=== PATIENT | male | born 1940 | race Caucasian/White ===

== ENCOUNTER → 2017-02-16 | Outpatient (CLI) | payer MEDICARE ==
--- NOTE | 2017-02-17 05:47 | REP ---
RIGHT KNEE, FIVE VIEWS: HISTORY: Pain. There is on acute fracture or dislocation. There is narrowing of the joint spaces. Osteophytes are present on the patella. IMPRESSION: Degenerative change as described above. Signed by Justus Chi MD 02/17/2017 08:15 A
== END ==
LOC: M ADAMS 10:49
PROVIDERS: ATTEND Physician Assistant
DX: M25.561 Pain in right knee (principal)

== ENCOUNTER 2017-02-24 11:53 | Emergency (ER) | payer OTHER, MEDICARE ==
[2017-02-24] MEDS ORDERED: FLOM5CAP PO (12:11)
[2017-02-24] MEDS ORDERED: NITR0.4D6 TD (12:11)
[2017-02-24] MEDS ORDERED: PRIM250T5 PO (12:11)
[2017-02-24] MEDS ORDERED: ASPI81TA85 PO (12:11)
[2017-02-24] MEDS ORDERED: ALBU17IN2 INH (12:11)
[2017-02-24] MEDS ORDERED: BACT800T5 PO (12:11)
[2017-02-24] MEDS ORDERED: OMEP40CA2 PO (12:11)
[2017-02-24] MEDS ORDERED: ISOS20TA PO (12:11)
[2017-02-24] MEDS ORDERED: BUDE180INH INH (12:11)
[2017-02-24] MEDS ORDERED: ATOR1TAB18 PO (12:11)
[2017-02-24] MEDS ORDERED: ATEN25TA PO (12:11)
[2017-02-24] MEDS ORDERED: IPRATROPIUM 0.5MG/ALBUTEROL 2.5MG INH SOL UD 3ML (DUONEB)(J7620) NEB ONE (13:15)
[2017-02-24] MEDS ORDERED: AZITHROMYCIN 250 MG TAB PO ONE (13:15)
[2017-02-24] MEDS ORDERED: predniSONE 20 MG TAB PO ONE (13:15)
[2017-02-24] MEDS ORDERED: ZITHTAB PO (14:28)
[2017-02-24] MEDS ORDERED: PRED10TA PO (14:28)
[2017-02-24] MEDS ORDERED: ALBU83IN INH (14:28)
[2017-02-24 14:36] VITALS: BP 124/69
--- NOTE | 2017-02-24 14:45 | REP ---
CHEST, TWO VIEWS: Two views of the chest are performed and compared of a prior study of 05/31/2013. There are again calcified pleural plaques bilaterally. There is no acute infiltrate. There is mild bibasilar fibrotic change. The heart is normal in size and there is calcified tortuous aorta. The mediastinal silhouette is unchanged. There are mild degenerative changes of the spine. IMPRESSION: Chronic changes appear stable without evidence of acute infiltrate. Signed by Garcia Radford MD 02/25/2017 04:03 P
== END 2017-02-24 14:42 | disposition home or self-care (01) ==
LOC: M ED 12:37
DX: J45.901 Unspecified asthma with (acute) exacerbation (principal); J20.9 Acute bronchitis, unspecified

== ENCOUNTER 2017-07-02 09:39 | Emergency (ER) | payer OTHER, MEDICARE ==
[~2017-07-02] VITALS: Ht 170.2 cm; Wt 64.1 kg
[~2017-07-02 09:39] MED LIST: ALBU17IN2 INH; ALBU83IN INH; ASPI81TA85 PO; ATEN25TA PO; ATOR80TA59 PO; BACT800T5 PO; BUDE180INH INH; FLOM5CAP PO; ISOS20TA PO; NITR0.4D6 TD; OMEP40CA2 PO; PRED10TA2 PO; PRIM250T8 PO; ZITHTAB PO
[2017-07-02] MEDS ORDERED: PRED20TA PO ×2 (10:11→12:19)
[2017-07-02] MEDS ORDERED: DOXY100T (10:11)
[2017-07-02] MEDS ORDERED: BENZ200C53 (10:11)
[2017-07-02] MEDS ORDERED: NS 1,000 ML IV SCH (10:19)
[2017-07-02] MEDS: IPRATROPIUM 0.5MG/ALBUTEROL 2.5MG INH SOL UD 3ML (DUONEB)(J7620) NEB PRN ×2 (10:40→10:58)
[2017-07-02 10:58] LABS: ADD MANUAL DIFFER YES; MEAN CORPUSCULAR HGB CONC 33.9 g/dl (32.0-36.5); MEAN CORPUSCULAR VOLUME 88.5 fl (80.0-96.0); PLATELET COUNT, AUTOMATED 159 k/mm3 (150-450); RED CELL DISTRIBUTION WIDTH 12.8 % (11.5-14.5); WHITE BLOOD COUNT 9.7 K/mm3 (4.0-10.0)
--- NOTE | 2017-07-02 11:12 | REP ---
Clinical: Dyspnea and cough. Technique: PA and lateral. Comparison: 02/24/2017. Findings: Mediastinum and cardiac silhouette are stable with moderate hiatal hernia again identified. The lung escoto demonstrate chronic interstitial changes as well as blunting to the diaphragmatic surfaces and partially calcified pleural plaques. Subtle superimposed basilar atelectasis or small pleural effusion cannot be excluded. No pneumothorax. Skeletal structures are intact. Impression: 1. 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 2. No definite acute process although subtle atelectasis cannot be excluded. Signed by Prasanth Haddad MD 07/02/2017 11:05 A
[2017-07-02 11:24] LABS: ALBUMIN 3.6 GM/DL (3.2-5.2); ALBUMIN/GLOBULIN RATIO 1.16 (1.00-1.93); ALKALINE PHOSPHATASE 92 U/L (45-117); ALT/SGPT 27 U/L (12-78); ANION GAP 9 MEQ/L (8-16); AST/SGOT 15 U/L (15-37); BILIRUBIN,DIRECT 0.2 MG/DL (0.0-0.2); BILIRUBIN,TOTAL 0.5 MG/DL (0.2-1.0); BLOOD UREA NITROGEN 18 MG/DL (7-18); CALCIUM LEVEL 8.6 MG/DL (8.8-10.2); CARBON DIOXIDE LEVEL 31 MEQ/L (21-32); CHLORIDE LEVEL 100 MEQ/L (98-107); CREATININE FOR GFR 0.62 MG/DL (0.70-1.30); GLOMERULAR FILTRATION RATE > 60.0 (>42); GLUCOSE, FASTING 184 MG/DL (83-110); POTASSIUM SERUM 4.1 MEQ/L (3.5-5.1); SODIUM LEVEL 140 MEQ/L (136-145); TOTAL PROTEIN 6.7 GM/DL (6.4-8.2)
[2017-07-02 11:30] LABS: ANISOCYTOSIS 1+; BANDS 1 % (< 11)
[2017-07-02] MEDS ORDERED: DOXY100C37 PO (12:19)
[2017-07-02] MEDS ORDERED: MUCI600T37 PO (12:19)
[2017-07-02 12:29] VITALS: BP 129/65
--- NOTE | 2017-07-03 07:39 | ECGEPIP ---
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 Order Number: [id number] Reading MD: Arti Pak Measurements Intervals [place] Rate: 70 P: 62 IN: 134 QRS: 14 QRSD: 90 T: 42 QT: 387 QTc: 420 Interpretive Statements SINUS RHYTHM NSTTW ABNORMALITY SIMILAR 01/01/16 Electronically Signed On 07-03-2017 7:39:02 EDT by Arti Pak
== END 2017-07-02 12:39 | disposition home or self-care (01) ==
LOC: M ED 09:39
DX: J45.909 Unspecified asthma, uncomplicated (principal); J20.9 Acute bronchitis, unspecified; J06.9 Acute upper respiratory infection, unspecified; Z87.891 Personal history of nicotine dependence

== ENCOUNTER 2017-11-20 14:20 | Emergency (ER) | payer OTHER, MEDICARE ==
[2017-11-20] MEDS: NS 500 ML IV (14:45)
[2017-11-20 15:00] LABS: BASO % 0.4 % (0.0-1.0); HEMATOCRIT 45.1 % (42.0-52.0); HEMOGLOBIN 15.4 g/dl (14.0-18.0); IMMATURE GRANULOCYTE # 0.1 10^3/uL (0-0); IMMATURE GRANULOCYTE % 0.7 % (0-0); LYMPH # 0.4 10^3/uL (1.5-4.5); LYMPH % 5.2 % (24.0-44.0); MEAN CORPUSCULAR HEMOGLOBIN 29.1 pg (27.0-33.0); MEAN CORPUSCULAR HGB CONC 34.1 g/dl (32.0-36.5); MEAN CORPUSCULAR VOLUME 85.3 fl (80.0-96.0); MONO # 0.6 10^3/uL (0.0-0.8); MONO % 6.7 % (0.0-5.0); NEUTROPHILS # 7.2 10^3/uL (1.8-7.7); RED BLOOD COUNT 5.29 10^6/uL (4.30-6.10); RED CELL DISTRIBUTION WIDTH 12.8 % (11.5-14.5); WHITE BLOOD COUNT 8.3 10^3/uL (4.0-10.0)
[2017-11-20 15:22] LABS: ALBUMIN 3.6 GM/DL (3.2-5.2); ALBUMIN/GLOBULIN RATIO 1.06 (1.00-1.93); ALKALINE PHOSPHATASE 103 U/L (45-117); ALT/SGPT 20 U/L (12-78); ANION GAP 7 MEQ/L (8-16); AST/SGOT 24 U/L (7-37); BILIRUBIN,DIRECT 0.2 MG/DL (0.0-0.2); BILIRUBIN,TOTAL 0.5 MG/DL (0.2-1.0); BLOOD UREA NITROGEN 18 MG/DL (7-18); CALCIUM LEVEL 8.5 MG/DL (8.8-10.2); CARBON DIOXIDE LEVEL 26 MEQ/L (21-32); CHLORIDE LEVEL 100 MEQ/L (98-107); CREATININE FOR GFR 0.76 MG/DL (0.70-1.30); GLOMERULAR FILTRATION RATE > 60.0 (>42); GLUCOSE, FASTING 98 MG/DL (70-100); POTASSIUM SERUM 4.5 MEQ/L (3.5-5.1); SODIUM LEVEL 133 MEQ/L (136-145)
[2017-11-20 15:27] LABS: PLATELET COUNT, AUTOMATED 118 10^3/uL (150-450)
[2017-11-20 15:28] LABS: INFLUENZA A AMPLIFICATION NEGATIVE (NEGATIVE); INFLUENZA B AMPLIFICATION NEGATIVE (NEGATIVE)
[2017-11-20] MEDS: ACETAMINOPHEN TAB 650MG DOSE (2X325MG) PO (17:08)
[2017-11-20 17:54] LABS: KETONE, URINE AUTO RFX TRACE mg/dL (NEGATIVE); LEUKOCYTE ESTERASE UR AUTO RFX NEGATIVE (NEGATIVE); MUCUS, URINE RFX MODERATE (NEGATIVE); NITRITE, URINE AUTO RFX NEGATIVE (NEGATIVE); RBC, URINE AUTO RFX 4 /HPF (0-3); SPECIFIC GRAVITY UR AUTO RFX 1.025 (1.002-1.035); SQUAM EPITHELIAL CELL UR AURFX 0 /HPF (0-6); WBC, URINE AUTO RFX 3 /HPF (0-3)
[2017-11-20] MEDS: IBUPROFEN 600 MG TAB PO (18:10)
== END 2017-11-20 19:16 | disposition home or self-care (01) ==
LOC: M ED 14:20
DX: B34.9 Viral infection, unspecified (principal); I25.10 Atherosclerotic heart disease of native coronary artery without angina pectoris; E11.9 Type 2 diabetes mellitus without complications; I10 Essential (primary) hypertension; J44.9 Chronic obstructive pulmonary disease, unspecified; Z87.891 Personal history of nicotine dependence; Z95.1 Presence of aortocoronary bypass graft
CPT/HCPCS: 71045

== ENCOUNTER 2017-11-24 16:59 | Observation (INO) | payer MEDICARE, OTHER ==
[2017-11-24 18:12] LABS: BASO % 0.5 % (0.0-1.0); HEMATOCRIT 38.7 % (42.0-52.0); HEMOGLOBIN 13.6 g/dl (14.0-18.0); LYMPH % 4.2 % (24.0-44.0); MEAN CORPUSCULAR HEMOGLOBIN 28.9 pg (27.0-33.0); MEAN CORPUSCULAR HGB CONC 35.1 g/dl (32.0-36.5); MEAN CORPUSCULAR VOLUME 82.2 fl (80.0-96.0); MONO # 0.4 10^3/uL (0.0-0.8); MONO % 10.3 % (0.0-5.0); NEUTROPHILS # 3.4 10^3/uL (1.8-7.7); PLATELET COUNT, AUTOMATED 130 10^3/uL (150-450); RED BLOOD COUNT 4.71 10^6/uL (4.30-6.10); RED CELL DISTRIBUTION WIDTH 12.8 % (11.5-14.5); WHITE BLOOD COUNT 4.1 10^3/uL (4.0-10.0)
[2017-11-24 18:32] LABS: LACTIC ACID SEPSIS PROTOCOL 1.7 MMOL/L (0.4-2.0)
[2017-11-24 18:33] LABS: ALBUMIN 2.8 GM/DL (3.2-5.2); ALBUMIN/GLOBULIN RATIO 0.82 (1.00-1.93); ALKALINE PHOSPHATASE 84 U/L (45-117); ALT/SGPT 41 U/L (12-78); ANION GAP 10 MEQ/L (8-16); AST/SGOT 55 U/L (7-37); BILIRUBIN,DIRECT 0.2 MG/DL (0.0-0.2); BILIRUBIN,TOTAL 0.5 MG/DL (0.2-1.0); BLOOD UREA NITROGEN 15 MG/DL (7-18); CALCIUM LEVEL 7.9 MG/DL (8.8-10.2); CARBON DIOXIDE LEVEL 23 MEQ/L (21-32); CHLORIDE LEVEL 101 MEQ/L (98-107); CPK CREATINE PHOSPHOKINASE 37 U/L (39-308); CREATININE FOR GFR 0.57 MG/DL (0.70-1.30); GLOMERULAR FILTRATION RATE > 60.0 (>42); GLUCOSE, FASTING 143 MG/DL (70-100); POTASSIUM SERUM 3.8 MEQ/L (3.5-5.1); SODIUM LEVEL 134 MEQ/L (136-145); TOTAL PROTEIN 6.2 GM/DL (6.4-8.2); TROPONIN I < 0.02 NG/ML (< 0.10)
[2017-11-24 18:52] LABS: LYMPH # 0.2 10^3/uL (1.5-4.5); POSITIVE DIFF POS FLAG
[2017-11-24] MEDS ORDERED: ISOVUE-370 76% 100ML VIAL (Q9967) As Ordered ×2 (19:30)
[2017-11-24 19:47] LABS: MAGNESIUM LEVEL 1.7 MG/DL (1.8-2.4); NT-PRO BNP 560 PG/ML (<450); PHOSPHORUS LEVEL 3.1 MG/DL (2.5-4.9)
[2017-11-24] MEDS: IPRATROPIUM 0.5MG/ALBUTEROL 2.5MG INH SOL UD 3ML (DUONEB)(J7620) NEB ×2 (21:05)
[2017-11-24 21:07] LABS: ABG BASE EXCESS -4.5 (-2.0-2.0); ABG HCO3 18.5 MEQ/L (22.0-26.0); ABG O2 SATURATION 99.1 % (95.0-99.0); ABG PARTIAL PRESSURE CO2 28.7 mmHg (35.0-45.0); ABG PARTIAL PRESSURE O2 199.9 mmHg (75.0-100.0); ABG STANDARD HCO3 20.8 MEQ/L (22.0-26.0); ABG TOTAL CO2 19.4 MEQ/L (23.0-31.0); ABG pH (ARTERIAL) 7.428 UNITS (7.350-7.450)
[2017-11-24] MEDS: MAGNESIUM OXIDE 400 MG TAB (MAG-OX) PO ×2 (21:08)
[2017-11-24 21:40] LABS: KETONE, URINE AUTO RFX 2+ mg/dL (NEGATIVE); LEUKOCYTE ESTERASE UR AUTO RFX NEGATIVE (NEGATIVE); MUCUS, URINE RFX MODERATE (NEGATIVE); NITRITE, URINE AUTO RFX NEGATIVE (NEGATIVE); RBC, URINE AUTO RFX 5 /HPF (0-3); SQUAM EPITHELIAL CELL UR AURFX 0 /HPF (0-6); WBC, URINE AUTO RFX 5 /HPF (0-3)
[2017-11-24 21:47] LABS: SPECIFIC GRAVITY UR AUTO RFX >1.060 (1.002-1.035)
[2017-11-24] MEDS: SODIUM CHLORIDE 0.9% 1000 ML IV ×2 (23:45)
[2017-11-24] MEDS ORDERED: ONDANSETRON 4MG/2ML VIAL (J2405) IV ×2 (23:45)
[2017-11-25] MEDS: TAMSULOSIN 0.4 MG CAP PO ×4 (00:30→21:06)
[2017-11-25] MEDS: PRIMIDONE 50 MG TAB PO ×4 (00:31→22:06)
[2017-11-25] MEDS: TROSPIUM 20 MG TAB PO ×6 (00:32→22:05)
[2017-11-25] MEDS: OMEPRAZOLE 20 MG CAP PO ×6 (00:32→21:06)
[2017-11-25] MEDS: ACETAMINOPHEN TAB 650MG DOSE (2X325MG) PO ×2 (00:32)
[2017-11-25] MEDS: IPRATROPIUM 0.5MG/ALBUTEROL 2.5MG INH SOL UD 3ML (DUONEB)(J7620) NEB ×6 (03:15→15:02)
[2017-11-25 06:49] LABS: HEMOGLOBIN 12.9 g/dl (14.0-18.0); IMMATURE GRANULOCYTE % 0.9 % (0-0); LYMPH % 6.6 % (24.0-44.0); MEAN CORPUSCULAR HEMOGLOBIN 28.2 pg (27.0-33.0); MEAN CORPUSCULAR HGB CONC 33.9 g/dl (32.0-36.5); MEAN CORPUSCULAR VOLUME 83.2 fl (80.0-96.0); MONO # 0.1 10^3/uL (0.0-0.8); MONO % 4.4 % (0.0-5.0); NEUTROPHILS # 2.8 10^3/uL (1.8-7.7); NEUTROPHILS % 88.1 % (36.0-66.0); PLATELET COUNT, AUTOMATED 124 10^3/uL (150-450); RED BLOOD COUNT 4.57 10^6/uL (4.30-6.10); RED CELL DISTRIBUTION WIDTH 12.8 % (11.5-14.5); WHITE BLOOD COUNT 3.2 10^3/uL (4.0-10.0)
[2017-11-25 07:09] LABS: LYMPH # 0.2 10^3/uL (1.5-4.5); POSITIVE DIFF POS FLAG
[2017-11-25 07:15] LABS: ANION GAP 8 MEQ/L (8-16); BLOOD UREA NITROGEN 18 MG/DL (7-18); CARBON DIOXIDE LEVEL 25 MEQ/L (21-32); CHLORIDE LEVEL 104 MEQ/L (98-107); CREATININE FOR GFR 0.56 MG/DL (0.70-1.30); GLOMERULAR FILTRATION RATE > 60.0 (>42); GLUCOSE, FASTING 265 MG/DL (70-100); MAGNESIUM LEVEL 2.1 MG/DL (1.8-2.4); POTASSIUM SERUM 4.3 MEQ/L (3.5-5.1); SODIUM LEVEL 137 MEQ/L (136-145)
[2017-11-25] MEDS: ENOXAPARIN 40 MG/0.4 ML SYRINGE (J1650) SC ×2 (08:49)
[2017-11-25] MEDS: ATORVASTATIN 20 MG TAB PO ×2 (08:50)
[2017-11-25] MEDS: ASPIRIN 81 MG ENTERIC TAB PO ×2 (08:50)
[2017-11-25] MEDS: ATENOLOL 25 MG TAB PO ×2 (08:50)
[2017-11-25] MEDS: ISOSORBIDE MON. (IMDUR) 30 MG XR TAB PO ×2 (08:50)
[2017-11-25] MEDS: MONTELUKAST 10 MG TAB PO ×2 (08:50)
[2017-11-25] MEDS: SYMBICORT 160/4.5MCG INHALER 6GM INH ×4 (09:31→19:53)
[2017-11-26 07:27] LABS: BASO % 0.2 % (0.0-1.0); HEMATOCRIT 34.3 % (42.0-52.0); HEMOGLOBIN 11.9 g/dl (14.0-18.0); IMMATURE GRANULOCYTE # 0.1 10^3/uL (0-0); IMMATURE GRANULOCYTE % 1.1 % (0-0); LYMPH # 0.3 10^3/uL (1.5-4.5); LYMPH % 5.7 % (24.0-44.0); MEAN CORPUSCULAR HEMOGLOBIN 28.7 pg (27.0-33.0); MEAN CORPUSCULAR HGB CONC 34.7 g/dl (32.0-36.5); MEAN CORPUSCULAR VOLUME 82.9 fl (80.0-96.0); MONO # 0.6 10^3/uL (0.0-0.8); MONO % 9.8 % (0.0-5.0); NEUTROPHILS # 4.7 10^3/uL (1.8-7.7); NEUTROPHILS % 83.2 % (36.0-66.0); PLATELET COUNT, AUTOMATED 158 10^3/uL (150-450); RED BLOOD COUNT 4.14 10^6/uL (4.30-6.10); WHITE BLOOD COUNT 5.6 10^3/uL (4.0-10.0)
[2017-11-26] MEDS: IPRATROPIUM 0.5MG/ALBUTEROL 2.5MG INH SOL UD 3ML (DUONEB)(J7620) NEB ×4 (07:46→16:00)
[2017-11-26 08:06] LABS: ANION GAP 10 MEQ/L (8-16); BLOOD UREA NITROGEN 14 MG/DL (7-18); CALCIUM LEVEL 7.8 MG/DL (8.8-10.2); CARBON DIOXIDE LEVEL 26 MEQ/L (21-32); CHLORIDE LEVEL 103 MEQ/L (98-107); CREATININE FOR GFR 0.58 MG/DL (0.70-1.30); GLOMERULAR FILTRATION RATE > 60.0 (>42); GLUCOSE, FASTING 238 MG/DL (70-100); POTASSIUM SERUM 4.3 MEQ/L (3.5-5.1); SODIUM LEVEL 139 MEQ/L (136-145)
[2017-11-26] MEDS: ATORVASTATIN 20 MG TAB PO ×2 (09:26)
[2017-11-26] MEDS: ASPIRIN 81 MG ENTERIC TAB PO ×2 (09:26)
[2017-11-26] MEDS: MONTELUKAST 10 MG TAB PO ×2 (09:26)
[2017-11-26] MEDS: OMEPRAZOLE 20 MG CAP PO ×4 (09:26→20:27)
[2017-11-26] MEDS: ATENOLOL 25 MG TAB PO ×2 (09:27)
[2017-11-26] MEDS: TROSPIUM 20 MG TAB PO ×4 (09:27→20:27)
[2017-11-26] MEDS: ENOXAPARIN 40 MG/0.4 ML SYRINGE (J1650) SC ×2 (09:27)
[2017-11-26] MEDS: ISOSORBIDE MON. (IMDUR) 30 MG XR TAB PO ×2 (09:29)
[2017-11-26] MEDS: SYMBICORT 160/4.5MCG INHALER 6GM INH ×4 (14:16→19:39)
[2017-11-26] MEDS: LACTOBACILLUS ACIDOPHILUS CAP (BACID) PO ×2 (17:55)
[2017-11-26] MEDS: PRIMIDONE 50 MG TAB PO ×2 (20:27)
[2017-11-26] MEDS: TAMSULOSIN 0.4 MG CAP PO ×2 (20:27)
[2017-11-26] MEDS: CIPROFLOXACIN 500 MG TAB PO ×2 (20:49)
[2017-11-27] MEDS ORDERED: CIPROFLOXACIN 500 MG TAB PO ×2 (06:00)
[2017-11-27 06:22] LABS: BASO % 0.2 % (0.0-1.0); EOS % 0.6 % (0.0-3.0); HEMATOCRIT 34.8 % (42.0-52.0); IMMATURE GRANULOCYTE % 0.9 % (0-3.0); LYMPH # 0.6 10^3/uL (1.5-4.5); LYMPH % 11.8 % (24.0-44.0); MEAN CORPUSCULAR HEMOGLOBIN 28.5 pg (27.0-33.0); MEAN CORPUSCULAR HGB CONC 34.5 g/dl (32.0-36.5); MEAN CORPUSCULAR VOLUME 82.7 fl (80.0-96.0); MONO # 0.4 10^3/uL (0.0-0.8); MONO % 9.5 % (0.0-5.0); NEUTROPHILS # 3.6 10^3/uL (1.8-7.7); PLATELET COUNT, AUTOMATED 165 10^3/uL (150-450); RED BLOOD COUNT 4.21 10^6/uL (4.30-6.10); RED CELL DISTRIBUTION WIDTH 13.1 % (11.5-14.5); WHITE BLOOD COUNT 4.7 10^3/uL (4.0-10.0)
[2017-11-27 06:38] LABS: ANION GAP 8 MEQ/L (8-16); BLOOD UREA NITROGEN 8 MG/DL (7-18); CALCIUM LEVEL 7.9 MG/DL (8.8-10.2); CARBON DIOXIDE LEVEL 28 MEQ/L (21-32); CHLORIDE LEVEL 105 MEQ/L (98-107); CREATININE FOR GFR 0.47 MG/DL (0.70-1.30); GLOMERULAR FILTRATION RATE > 60.0 (>42); GLUCOSE, FASTING 141 MG/DL (70-100); POTASSIUM SERUM 3.9 MEQ/L (3.5-5.1); SODIUM LEVEL 141 MEQ/L (136-145)
[2017-11-27] MEDS: IPRATROPIUM 0.5MG/ALBUTEROL 2.5MG INH SOL UD 3ML (DUONEB)(J7620) NEB ×4 (08:00)
[2017-11-27] MEDS: SYMBICORT 160/4.5MCG INHALER 6GM INH ×2 (08:12)
[2017-11-27] MEDS: ASPIRIN 81 MG ENTERIC TAB PO ×2 (08:39)
[2017-11-27] MEDS: ATENOLOL 25 MG TAB PO ×2 (08:39)
[2017-11-27] MEDS: MONTELUKAST 10 MG TAB PO ×2 (08:39)
[2017-11-27] MEDS: OMEPRAZOLE 20 MG CAP PO ×2 (08:39)
[2017-11-27] MEDS: ATORVASTATIN 20 MG TAB PO ×2 (08:39)
[2017-11-27] MEDS: LACTOBACILLUS ACIDOPHILUS CAP (BACID) PO ×2 (08:39)
[2017-11-27] MEDS: TROSPIUM 20 MG TAB PO ×2 (08:39)
[2017-11-27] MEDS: ISOSORBIDE MON. (IMDUR) 30 MG XR TAB PO ×2 (08:39)
[2017-11-27] MEDS: ENOXAPARIN 40 MG/0.4 ML SYRINGE (J1650) SC ×2 (08:40)
[2017-11-27] MEDS: CIPROFLOXACIN 500 MG TAB PO ×2 (10:27)
== END 2017-11-27 10:40 | disposition home or self-care (01) ==
LOC: M ED INP 23:45 → M MSPAV 11-26 13:50 → M ED 16:59
DX: J44.1 Chronic obstructive pulmonary disease with (acute) exacerbation (principal); A02.9 Salmonella infection, unspecified; R19.7 Diarrhea, unspecified; E86.0 Dehydration; I11.9 Hypertensive heart disease without heart failure; I25.10 Atherosclerotic heart disease of native coronary artery without angina pectoris; E11.9 Type 2 diabetes mellitus without complications; E78.5 Hyperlipidemia, unspecified; K21.9 Gastro-esophageal reflux disease without esophagitis; N40.0 Benign prostatic hyperplasia without lower urinary tract symptoms; N48.6 Induration penis plastica; G25.0 Essential tremor; R06.02 Shortness of breath; J61 Pneumoconiosis due to asbestos and other mineral fibers; R23.0 Cyanosis; R50.9 Fever, unspecified; E83.42 Hypomagnesemia; R53.1 Weakness; M06.9 Rheumatoid arthritis, unspecified; J45.909 Unspecified asthma, uncomplicated; Z85.46 Personal history of malignant neoplasm of prostate; Z85.828 Personal history of other malignant neoplasm of skin; Z95.5 Presence of coronary angioplasty implant and graft; Z88.0 Allergy status to penicillin; Z88.5 Allergy status to narcotic agent; Z79.899 Other long term (current) drug therapy; Z79.82 Long term (current) use of aspirin; Z79.84 Long term (current) use of oral hypoglycemic drugs; Z79.51 Long term (current) use of inhaled steroids; Z87.891 Personal history of nicotine dependence
CPT/HCPCS: Q9967

== ENCOUNTER 2018-04-09 10:52 | Emergency (ER) | payer MEDICARE ==
[2018-04-09 12:22] LABS: HEMATOCRIT 39.2 % (42.0-52.0); MEAN CORPUSCULAR HEMOGLOBIN 28.1 pg (27.0-33.0); MEAN CORPUSCULAR HGB CONC 33.2 g/dl (32.0-36.5); MEAN CORPUSCULAR VOLUME 84.8 fl (80.0-96.0); PLATELET COUNT, AUTOMATED 125 10^3/uL (150-450); RED BLOOD COUNT 4.62 10^6/uL (4.30-6.10); RED CELL DISTRIBUTION WIDTH 13.7 % (11.5-14.5)
[2018-04-09 12:43] LABS: ERYTHROCYTE SEDIMENTATION RATE 19 mm/hr (0-20)
[2018-04-09 12:44] LABS: ANION GAP 6 MEQ/L (8-16); BLOOD UREA NITROGEN 14 MG/DL (7-18); C REACTIVE PROTEIN QUANTITATIV 1.59 MG/DL (0.00-0.30); CALCIUM LEVEL 8.3 MG/DL (8.8-10.2); CARBON DIOXIDE LEVEL 29 MEQ/L (21-32); CHLORIDE LEVEL 105 MEQ/L (98-107); CREATININE FOR GFR 0.49 MG/DL (0.70-1.30); GLOMERULAR FILTRATION RATE > 60.0 (>42); GLUCOSE, FASTING 140 MG/DL (70-100); POTASSIUM SERUM 4.4 MEQ/L (3.5-5.1); SODIUM LEVEL 140 MEQ/L (136-145)
[2018-04-09] MEDS: NS 1,000 ML IV (13:10)
[2018-04-09] MEDS: cefTRIAXone SOD 1 GM in D5W MINI-BAG PLUS 50 ML IV (13:42)
== END 2018-04-09 14:25 | disposition home or self-care (01) ==
LOC: M ED 10:52
DX: L03.012 Cellulitis of left finger (principal); R73.09 Other abnormal glucose; I10 Essential (primary) hypertension; J45.909 Unspecified asthma, uncomplicated; J44.9 Chronic obstructive pulmonary disease, unspecified; K21.9 Gastro-esophageal reflux disease without esophagitis; Z87.442 Personal history of urinary calculi; Z85.01 Personal history of malignant neoplasm of esophagus; Z85.46 Personal history of malignant neoplasm of prostate; Z85.828 Personal history of other malignant neoplasm of skin; Z95.5 Presence of coronary angioplasty implant and graft; Z98.61 Coronary angioplasty status; Z79.82 Long term (current) use of aspirin; Z79.899 Other long term (current) drug therapy; Z88.5 Allergy status to narcotic agent; Z88.0 Allergy status to penicillin
CPT/HCPCS: J0696

== ENCOUNTER → 2019-07-21 | Outpatient (CLI) | payer MEDICARE ==
[~2019-07-21] MED LIST changes: +ASPI81TAEC PO; +BACI500O8 TOP; +BENZ200C70; +CIPR-249 PO; +CLEO300C2 PO; +DOXY100C37 PO; +DOXY100T; +FLOM0.4C39 PO; -FLOM5CAP PO; +ISOS30TA4 PO; +KEFL500C17 PO; +METF500T13 PO; +MUCI600T37 PO; +NITR4TASL SL; +OMEP20CA4 PO; +OXYC1TAB23 PO; +PRED20TA PO; +PRIM50TA6 PO; +RISATAB3 PO; +SING10TA32 PO; +SYMB16INH INH; +TROS20TA3 PO
--- NOTE | 2019-07-21 19:51 | REP ---
Whole body radionuclide PET CT scan: The patient has a history of esophagectomy and gastric pull-through. A report of an outside CT scan from [facility] described a soft tissue nodule associated with a pleural plaque in the right lung lower lobe measuring 2.8 x 0.8 cm that had increased in size from a prior CT study dated 02/16/2019 where it measured 2.4 x 0.5 cm. Whole body PET CT scan is performed from skull base to the upper thighs. Neck and supraclavicular areas: There are no hypermetabolic foci. There is artifactual uptake in a sublingual salivary gland. Chest: There is borderline hypermetabolic uptake in the soft tissue nodule adjacent to the calcific pleural plaque along the posterolateral aspect of the right seventh rib in the superior segment of the right lower lobe. The standard uptake value of the soft tissue nodule is 2.6. This is borderline hypermetabolic. There are three foci of borderline hypermetabolic uptake interposed between the gastric pull-through and the thoracic vertebra: one at the T5 level with a standard uptake value of 2.8, the next at the approximate T6 level with a standard uptake value of 3.1, and, and the third at the approximate T8 level with a standard uptake value of 3.3. These may be foci of artifactual uptake related to the pull-through procedure. Abdomen, pelvis and upper thighs: There are no hypermetabolic foci. There is artifactual labeling from radiotracer containing urine at the tip of the penis. There is artifactual, nonspecific radio labeling of the bowel. Impression: The known pleural-based nodule adjacent to a calcific pleural plaque posterolaterally in the right hemithorax demonstrates borderline hypermetabolic uptake with a standard uptake value of 2.6. There are three borderline hypermetabolic foci interposed between the gastric pull-through and a thoracic vertebra as discussed in detail above. These do these may be artifactual related to the pull-through procedure. There are no other hypermetabolic foci. The study is performed with 8.5 mCi of F 18 FDG. Electronically Signed by Garcia Aquino MD 07/21/2019 07:43 P
== END ==
LOC: M PLARAD 13:21
PROVIDERS: ATTEND Internal Medicine Pulmonary Disease
DX: Z12.2 Encounter for screening for malignant neoplasm of respiratory organs (principal); R91.8 Other nonspecific abnormal finding of lung field
CPT/HCPCS: 78815; A9552

== ENCOUNTER 2020-11-20 11:30 | Emergency (ER) | payer MEDICARE, OTHER ==
[~2020-11-20] VITALS: Ht 171.4 cm; Wt 60.9 kg
[~2020-11-20 11:30] MED LIST changes: -ASPI81TA85 PO; +ASPI81TA86 PO; +OMEP1CAP73 PO; -OMEP20CA4 PO; -OMEP40CA2 PO; +OMEP40CA97 PO
--- OUTSIDE RECORDS SUMMARY | 2020-11-20 11:35 | CCD ---
Author Author [facility] Organization [facility] Address Unknown Phone Unavailable Care Team Providers Care Lead Bi Developer Name Role Phone RING, K ANDREWS PA Unavailable Unavailable RING, K ANDREWS PA Unavailable Unavailable RING, K ANDREWS PA Unavailable Unavailable RING, K ANDREWS PA Unavailable Unavailable RING, K ANDREWS PA Unavailable Unavailable RING, K ANDREWS PA Unavailable Unavailable RING, K ANDREWS PA Unavailable Unavailable RING, K ANDREWS PA Unavailable Unavailable RING, K ANDREWS PA Unavailable Unavailable RING, K ANDREWS PA Unavailable Unavailable RING, K ANDREWS PA Unavailable Unavailable RING, K ANDREWS PA Unavailable Unavailable RING, K ANDREWS PA Unavailable Unavailable RING, K ANDREWS PA Unavailable Unavailable RING, K ANDREWS PA Unavailable Unavailable RING, K ANDREWS PA Unavailable Unavailable RING, K ANDREWS PA Unavailable Unavailable RING, K ANDREWS PA Unavailable Unavailable RING, K ANDREWS PA Unavailable Unavailable RING, K ANDREWS PA Unavailable Unavailable RING, K ANDREWS PA Unavailable Unavailable Spearance, J Suresh PA Unavailable Unavailable Spearance, J Suresh PA Unavailable Unavailable Spearance, J Suresh PA Unavailable Unavailable Spearance, J Suresh PA Unavailable Unavailable Spearance, J Suresh PA Unavailable Unavailable Spearance, J Suresh PA Unavailable Unavailable Spearance, J Suresh PA Unavailable Unavailable Spearance, J Suresh PA Unavailable Unavailable Spearance, J Suresh PA Unavailable Unavailable Spearance, J Suresh PA Unavailable Unavailable Spearance, J Suresh PA Unavailable Unavailable Spearance, J Suresh PA Unavailable Unavailable Spearance, J Suresh PA Unavailable Unavailable Spearance, J Suresh PA Unavailable Unavailable Spearance, J Suresh PA Unavailable Unavailable Spearance, J Suresh PA Unavailable Unavailable Spearance, J Suresh PA Unavailable Unavailable Spearance, J Suresh PA Unavailable Unavailable Spearance, J Suresh PA Unavailable Unavailable Bruce Pitts Unavailable Unavailable Re-disclosure Warning The records that you are about to access may contain information from federally-assisted alcohol or drug abuse programs. If such information is present, then the following federally mandated warning applies: This information has been disclosed to you from records protected by federal confidentiality rules (42 CFR part 2). The federal rules prohibit you from making any further disclosure of this information unless further disclosure is expressly permitted by the written consent of the person to whom it pertains or as otherwise permitted by 42 CFR part 2. A general authorization for the release of medical or other information is NOT sufficient for this purpose. The Federal rules restrict any use of the information to criminally investigate or prosecute any alcohol or drug abuse patient.The records that you are about to access may contain highly sensitive health information, the redisclosure of which is protected by Article 27-F of the [facility] Public Health law. If you continue you may have access to information: Regarding HIV / AIDS; Provided by facilities licensed or operated by the [facility] Office of Mental Health; or Provided by the [facility] Office for People With Developmental Disabilities. If such information is present, then the following [facility] mandated warning applies: This information has been disclosed to you from confidential records which are protected by state law. State law prohibits you from making any further disclosure of this information without the specific written consent of the person to whom it pertains, or as otherwise permitted by law. Any unauthorized further disclosure in violation of state law may result in a fine or long term sentence or both. A general authorization for the release of medical or other information is NOT sufficient authorization for further disc losure. Family History Family Member Name Family Member Gender Family Member Status Date o f Status Description Data Source(s) Unknown Unknown Problem [facility] ([facility]) Encounters Encounter Providers Location Date Indications Data Source(s ) Outpatient Attender: ANDREWS Neumann Primary 07/27/2020 09:30:00 AM EDT [facility] ([facility]) Outpatient Attender: Suresh crystal 10/08/2019 08:15:00 AM EST [facility] ([facility]) Immunizations Vaccine Date Status Description Data Source(s) INFLUENZA VIRUS VACCINE QUADRIVALENT 2019-21 (6 MOS AN D UP) 06/21/2020 12:00:00 AM EDT completed [facility] Medications Medication Brand Name Start Date Product Form Dose Route Admi nistrative Instructions Pharmacy Instructions Status Indications Reaction Description Data Source(s) 875 mg 07/27/2020 12:00:00 AM EDT tablet 20 TAKE ONE TABLET BY MOUTH EVERY 12 HOURS FOR 10 DAYS TAKE ONE TABLET BY MOUTH EVERY 12 HOURS FOR 10 DAYS SO LD: 07/27/2020 [facility] 137 mcg (0.1 %) 07/27/2020 12:00:00 AM EDT aerosol,spray 30 SPRAY TWO SPRAYS IN EACH NOSTRIL EVERY 12 HOURS SPRAY TWO SPRAYS IN EACH NOSTRIL EVERY 12 HOURS SOLD: 07/28/2020 [facility] Azelastine HCL (Nasal) Azelastine HCL (Nasal) 07/27/2020 12:00:00 AM E DT active [facility] ([facility], [facility]) Amoxicillin 875 MG Oral Tablet Amoxicillin 07/27/2020 12:00:00 AM EDT ORAL active [facility] ([facility], [facility]) 875-125 mg 10/08/2019 12:00:00 AM EST tablet 20 TAKE ONE TABLET BY MOUTH TWICE A DAY FOR 10 DAYS TAKE ONE TABLET BY MOUTH TWICE A DAY FOR 10 DAYS SOLD: 10/08/2019 [facility] Prednisone 20 MG Oral Tablet Prednisone 10/08/2019 12:00:00 AM EST ORAL active [facility] ([facility], [facility]) 20 mg 10/08/2019 12:00:00 AM EST tablet 12 TAKE ONE TABLET BY MOUTH THREE TIMES A DAY FOR 4 DAYS TAKE ONE TABLET BY MOUTH THREE TIMES A DAY FOR 4 DAYS SOLD: 10/08/2019 [facility] Amoxicillin 875 MG / Clavulanate 125 MG Oral Tablet [Augment in] Augmentin 10/08/2019 12:00:00 AM EST ORAL active [facility] ([facility], [facility]) Insurance Providers Payer name Policy type / Coverage type Policy ID Covered constitution party ID Covered constitution party's relationship to wilhelm Policy Wilhelm Plan Information AETNA MEDICARE [id number] SP [id number] [facility] [id number] SP [id number] 'S ADMINISTRATION [id number] SP [id number] AETNA MEDICARE [id number] SP MEBNZ [id number] Aetna Ppo/Pos/Nap/MC Commercial [id number] Self [id number] Aetna Ppo/Pos/Nap/MC Commercial [id number] Self [id number] Aetna Ppo/Pos/Nap/MC Commercial [id number] Self [id number] Aetna Ppo/Pos/Nap/MC Commercial [id number] Self [id number] AETNA MEDICARE O [id number] S MEBNZ 1YJ AETNA MEDICARE -O/P [id number] Aetna Ppo/Pos/Nap/MC Commercial [id number] Self [id number] Aetna Ppo/Pos/Nap/MC Commercial [id number] Self [id number] Aetna Ppo/Pos/Nap/MC Commercial [id number] Self [id number] AETNA MEDICARE [id number] SP MEBNZ 1YJ MEDICARE COMPLETE [id number] SP [id number] [facility]/136E O [id number] S [id number] United HLCR/Medicare Solu Commercial [id number] Self [id number] United HLCR/Medicare Solu Commercial [id number] Self [id number] United HLCR/Medicare Solu Commercial Self [facility] [id number] SP [id number] [facility] P [id number] S [id number] MEDICARE COMPLETE [id number] SP [id number] [facility] P [id number] S [id number] Social History Code Duration Value Status Description Data Source(s ) Smoking 07/27/2020 12:00:00 AM EDT Patient is a former smoker completed Patient is a former smoker [facility]) Vital Signs ID Date Data Source UNK Name Value Range Interpretation Code Description Data Source(s) Body mass index (BMI) [Ratio] 21.9 kg/m2 21.9 k g/m2 [facility] ([facility]) Body height 66 [in_i] 66 [in_i] [facility], [facility]) 5'6" Body weight 136.00 [lb_av] 136.00 [lb_av] MED[facility] T ([facility], [facility]) Body temperature 97.7 [degF] 97.7 [degF] [facility], [facility]) Oxygen saturation in Arterial blood by Pulse oximetry 98 % 98 % [facility] ([facility], [facility]) [facility]piratory rate 18 /min 18 /min [facility] ( [facility]) Heart rate 80 /min 80 /min [facility] ([facility], [facility]) Diastolic blood pressure 76 mm[Hg] 76 mm[Hg] [facility] ([facility], [facility]) Systolic blood pressure 136 mm[Hg] 136 mm[Hg] [facility] ([facility], [facility]) Body mass index (BMI) [Ratio] 21.9 kg/m2 21.9 k g/m2 [facility] ([facility], [facility]) Body height 66 [in_i] 66 [in_i] [facility] ([facility], [facility]) 5'6" Body weight 136.00 [lb_av] 136.00 [lb_av] MED[facility] T ([facility], [facility]) Body temperature 98.4 [degF] 98.4 [degF] [facility] ([facility], [facility]) Oxygen saturation in Arterial blood by Pulse oximetry 94 % 94 % [facility] ([facility], [facility]) Respiratory rate 16 /min 16 /min [facility] ( [facility], [facility]) Heart rate 71 /min 71 /min [facility] ([facility], [facility]) Diastolic blood pressure 78 mm[Hg] 78 mm[Hg] [facility] ([facility], [facility]) Systolic blood pressure 146 mm[Hg] 146 mm[Hg] M [facility] ([facility], [facility])
--- OUTSIDE RECORDS SUMMARY | 2020-11-20 13:01 | CCD ---
Author Author [facility] Organization [facility] Address Unknown Phone Unavailable Care Team Providers Care Software Quality Test Engineer Name Role Phone RING, K ANDREWS PA [...] is protected by Article 27-F of the [facility] Public Health law. If you continue you may have access to information: Regarding HIV / AIDS; Provided by facilities licensed or operated by the [facility] Office of Mental Health; or Provided by the [facility] Office for People With Developmental Disabilities. If such information is present, then the following [facility] mandated warning applies: This information [...] law may result in a fine or prison sentence or both. A general authorization for [...] Neumann Primary 07/27/2020 09:30:00 AM EDT [facility] ([facility]) Outpatient Attender: Suresh crystal 10/08/2019 08:15:00 AM EST [facility] ([facility]) Immunizations Vaccine Date [...] 07/27/2020 12:00:00 AM E DT active [facility] ([facility], [facility]) Amoxicillin 875 MG Oral Tablet Amoxicillin 07/27/2020 12:00:00 AM EDT ORAL active [facility] ([facility], [facility]) 875-125 mg 10/08/2019 12:00:00 AM EST tablet 20 TAKE ONE TABLET BY MOUTH TWICE A DAY FOR 10 DAYS TAKE ONE TABLET BY MOUTH TWICE A DAY FOR 10 DAYS SOLD: 10/08/2019 [facility] Prednisone 20 MG Oral Tablet Prednisone 10/08/2019 12:00:00 AM EST ORAL active [facility] ([facility], [facility]) 20 mg 10/08/2019 12:00:00 AM EST tablet 12 TAKE ONE TABLET BY MOUTH THREE TIMES A DAY FOR 4 DAYS TAKE ONE TABLET BY MOUTH THREE TIMES A DAY FOR 4 DAYS SOLD: 10/08/2019 [facility] Amoxicillin 875 MG / Clavulanate 125 MG Oral Tablet [Augment in] Augmentin 10/08/2019 12:00:00 AM EST ORAL active [facility] ([facility], [facility]) Insurance Providers Payer name Policy type / Coverage type Policy ID Covered constitution party ID Covered constitution party's relationship to wilhelm Policy Wilhelm Plan Information AETNA MEDICARE [id number] SP MEBNZ [id number] 'S ADMINISTRATION [id number] SP [id number] [facility] [id number] SP [id number] AETNA MEDICARE [id number] SP MEBNZ [id number] Aetna Ppo/Pos/Nap/MC Commercial [id number] Self [id number] Aetna Ppo/Pos/Nap/MC Commercial [id number] Self [id number] Aetna Ppo/Pos/Nap/MC Commercial [id number] Self [id number] Aetna Ppo/Pos/Nap/MC Commercial [id number] Self [id number] AETNA MEDICARE O [id number] S MEBNZ 1YJ AETNA MEDICARE -O/P [id number] Aetna Ppo/Pos/Nap/MC Commercial [id number] Self [id number] Aetna Ppo/Pos/Nap/MC Commercial [id number] Self [id number] Aetna Ppo/Pos/Nap/MC Commercial [id number] Self [id number] AETNA MEDICARE [id number] SP MEBNZ 1YJ MEDICARE COMPLETE [id number] SP [id number] [facility]/136E O [id number] S [id number] United HLCR/Medicare Solu Commercial [id number] Self [id number] United HLCR/Medicare Solu Commercial [id number] Self [id number] United HLCR/Medicare Solu Commercial Self [facility] [id number] SP [id number] MEDICARE COMPLETE-[facility] P [id number] S [id number] MEDICARE COMPLETE [id number] SP [id number] [facility] [id number] S [id number] Social History Code Duration Value Status Description Data Source(s ) Smoking 07/27/2020 12:00:00 AM EDT Patient is a former smoker completed Patient is a former smoker [facility]) Vital Signs ID Date Data Source UNK Name Value Range Interpretation Code Description Data Source(s) Body mass index (BMI) [Ratio] 21.9 kg/m2 21.9 k g/m2 [facility] ([facility]) Body height 66 [in_i] 66 [in_i] [facility], [facility]) 5'6" Body weight 136.00 [lb_av] 136.00 [lb_av] [facility] T ([facility], [facility]) Body temperature 97.7 [degF] 97.7 [degF] [facility] ([facility], [facility]) Oxygen saturation in Arterial blood by Pulse oximetry 98 % 98 % [facility] ([facility], [facility]) Respiratory rate 18 /min 18 /min [facility] ( [facility], [facility]) Heart rate 80 /min 80 /min [facility] ([facility], [facility]) Diastolic blood pressure 76 mm[Hg] 76 mm[Hg] [facility] ([facility], [facility]) Systolic blood pressure 136 mm[Hg] 136 mm[Hg] [facility] ([facility], [facility]) Body mass index (BMI) [Ratio] 21.9 kg/m2 21.9 k g/m2 [facility] ([facility], [facility]) Body height 66 [in_i] 66 [in_i] [facility] ([facility], [facility]) 5'6" Body weight 136.00 [lb_av] 136.00 [lb_av] MED[facility] T ([facility], [facility]) Body temperature 98.4 [degF] 98.4 [degF] [facility] ([facility], [facility]) Oxygen saturation in Arterial blood by Pulse oximetry 94 % 94 % [facility] ([facility], [facility]) Respiratory rate 16 /min 16 /min [facility] ( [facility], [facility]) Heart rate 71 /min 71 /min [facility] ([facility], [facility]) Diastolic blood pressure 78 mm[Hg] 78 mm[Hg] [facility] ([facility], [facility]) Systolic blood pressure 146 mm[Hg] 146 mm[Hg] M [facility] ([facility], [facility])
--- NOTE | 2020-11-20 13:19 | REP ---
INDICATION: Abdominal Pain. COMPARISON: Comparison chest x-ray November 24, 2017. TECHNIQUE: Two views.. 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 This is unchanged. Lungs are otherwise well inflated and free of infiltrate. Pleural angles are sharp. The heart is borderline in size unchanged. Pulmonary vasculature is not increased. There are degenerative changes in the thoracic spine. There is chronic insert creased density behind the heart on the right side in this patient status post esophagectomy and colonic interposition. IMPRESSION: No active disease.. <Electronically signed by Richard Leal > 11/20/20 [id number]
[2020-11-20 13:27] LABS: BASO % 0.3 % (0.0-1.0); EOS # 0.1 10^3/uL (0.0-0.5); EOS % 1.1 % (0.0-3.0); HEMATOCRIT 44.4 % (42.0-52.0); HEMOGLOBIN 14.2 g/dl (13.5-17.5); LYMPH # 0.5 10^3/uL (1.5-5.0); LYMPH % 4.4 % (24.0-44.0); MEAN CORPUSCULAR HEMOGLOBIN 28.2 pg (27.0-33.0); MEAN CORPUSCULAR VOLUME 88.1 fl (80.0-96.0); MONO # 0.6 10^3/uL (0.0-0.8); MONO % 5.3 % (0.0-5.0); NEUTROPHILS # 9.2 10^3/uL (1.5-8.5); NEUTROPHILS % 88.1 % (36.0-66.0); PLATELET COUNT, AUTOMATED 121 10^3/uL (150-450); RED BLOOD COUNT 5.04 10^6/uL (4.30-6.10); WHITE BLOOD COUNT 10.5 10^3/uL (4.0-10.0)
[2020-11-20 13:49] LABS: ALBUMIN 4.1 GM/DL (3.2-5.2); ALT/SGPT 26 U/L (12-78); BILIRUBIN,DIRECT 0.2 MG/DL (0.0-0.2); BILIRUBIN,TOTAL 0.6 MG/DL (0.2-1.0); CK-MB VALUE MASS < 1.0 NG/ML (<3.6); CPK CREATINE PHOSPHOKINASE 59 U/L (39-308); LIPASE 70 U/L (73-393); MB/CK RELATIVE INDEX 1.69 (< OR =4); TROPONIN I < 0.02 NG/ML (< 0.10)
[2020-11-20] MEDS ORDERED: ACETAMINOPHEN 325 MG TAB PO ONE (14:30)
--- NOTE | 2020-11-20 15:17 | REP ---
INDICATION: pain elev enzymes. COMPARISON: Comparison CT study November 20, 2020.. TECHNIQUE: Right upper quadrant sonography. FINDINGS: Scanning through the right upper quadrant of the abdomen demonstrates a normal sized, thin-walled gallbladder without evidence of polyp. There are mobile shadowing gallstones within it as seen on CT.. Common bile duct is normal measuring 0.4 cm in greatest diameter. No focal liver lesion is seen. Liver size is normal. No pancreatic abnormality is observed. No right renal abnormality is seen. There is no evidence of ascites. The right kidney measures 11.2 x 5.0 x 5.1 cm. IMPRESSION: Cholelithiasis. Otherwise negative right upper quadrant sonogram.. <Electronically signed by Richard Leal > 11/20/20 [id number]
--- NOTE | 2020-11-20 15:30 | REP ---
INDICATION: left flank pain, concern stone patient gives a history of esophagectomy and colonic interposition. Prostate carcinoma. COMPARISON: Comparison CT study abdomen and pelvis June 28, 2013.. TECHNIQUE: Helical scanning is acquired in 4 mm axial images were reformatted. Coronal and sagittal MPR images were generated and reviewed. FINDINGS: Digital preliminary surgical appliances salesperson radiograph demonstrates a moderate amount of stool in the right colon and transverse colon region. There are clips in the right upper quadrant. There is bibasilar interstitial fibrosis in the lung bases. There is ingested material in the interposed colon at the diaphragmatic hiatus and distal chest. Surgical sutures are seen in the upper abdomen. Opaque gallstones are seen layering in the dependent portion the gallbladder. No focal hepatic lesion is seen. No splenic lesion is observed. No abnormality is observed in the pancreas. There is mild fullness in the lower pole collecting system and renal pelvis on the left but no ureteral calculus or lesion is seen. Question vessel crossing affect. There is a small focal vascular calcification at the lower pole. In addition, there is a tiny intrarenal calculus in the lower pole collecting system region of the left kidney. There is a peripheral cyst at the lower pole of the left kidney which measures 4.8 cm in greatest diameter. This is unchanged. No bladder or distal ureteral calculus is seen. There are some dystrophic calcifications in the prostate. Small and large bowel loops are unremarkable. There is a large amount of fecal material in the proximal colon. IMPRESSION: Cholelithiasis. There is a tiny intrarenal calculus in the lower pole the left kidney. There is minimal fullness of the intrarenal collecting system on the left but no ureteral calculus is observed. There is vascular calcification in the lower pole of the left kidney. Extensive postoperative changes are noted in the upper abdomen. Heavy vascular calcification.. <Electronically signed by Richard Leal > 11/20/20 [id number]
[2020-11-20] MEDS ORDERED: NS 1,000 ML IV ONE (16:00)
[2020-11-20 18:07] VITALS: O2SAT 96
[2020-11-20 19:45] VITALS: BP 145/69
--- NOTE | 2020-11-20 20:47 | ECGEPIP ---
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
== END 2020-11-20 20:02 | disposition home or self-care (01) ==
LOC: M ED 11:30
DX: K80.20 Calculus of gallbladder without cholecystitis without obstruction (principal); I10 Essential (primary) hypertension; E11.9 Type 2 diabetes mellitus without complications; Z79.899 Other long term (current) drug therapy; Z79.82 Long term (current) use of aspirin; Z88.0 Allergy status to penicillin; Z88.5 Allergy status to narcotic agent

== ENCOUNTER 2021-02-09 09:25 | Emergency (ER) | payer MEDICARE ==
[~2021-02-09] VITALS: Ht 167.6 cm; Wt 60.8 kg
[~2021-02-09 09:25] MED LIST changes: +ASPI-569 PO; -ASPI81TAEC PO; +ISOS1TAB35 PO; -ISOS30TA4 PO
[2021-02-09 10:51] LABS: BASO % 0.5 % (0.0-1.0); EOS # 0.1 10^3/uL (0.0-0.5); EOS % 3.4 % (0.0-3.0); HEMATOCRIT 39.4 % (42.0-52.0); HEMOGLOBIN 12.9 g/dl (13.5-17.5); LYMPH # 0.6 10^3/uL (1.5-5.0); LYMPH % 14.7 % (24.0-44.0); MEAN CORPUSCULAR HEMOGLOBIN 29.1 pg (27.0-33.0); MEAN CORPUSCULAR HGB CONC 32.7 g/dl (32.0-36.5); MEAN CORPUSCULAR VOLUME 88.7 fl (80.0-96.0); MONO # 0.5 10^3/uL (0.0-0.8); MONO % 12.7 % (2.0-8.0); NEUTROPHILS # 2.6 10^3/uL (1.5-8.5); NEUTROPHILS % 67.9 % (36.0-66.0); PLATELET COUNT, AUTOMATED 125 10^3/uL (150-450); RED BLOOD COUNT 4.44 10^6/uL (4.30-6.10); WHITE BLOOD COUNT 3.9 10^3/uL (4.0-10.0)
[2021-02-09 11:14] LABS: ERYTHROCYTE SEDIMENTATION RATE 7 mm/hr (0-20)
--- NOTE | 2021-02-09 12:10 | REP ---
INDICATION: R olecranon bursitis COMPARISON: None. TECHNIQUE: AP, lateral, bilateral oblique views of the right elbow. FINDINGS: Moderate generalized arthritic degenerative changes are appreciated. There is no evidence for acute fracture or dislocation. Lateral view demonstrates posterior soft tissue swelling suggesting bursitis. IMPRESSION: 1. Posterior olecranon bursitis. 2. Age-related degenerative changes. <Electronically signed by Prasanth Haddad > 02/09/21 [id number]
[2021-02-09 12:33] VITALS: BP 142/67
== END 2021-02-09 12:52 | disposition home or self-care (01) ==
LOC: M ED 09:25
DX: M70.21 Olecranon bursitis, right elbow (principal); D69.6 Thrombocytopenia, unspecified; S50.01XA Contusion of right elbow, initial encounter; W22.8XXA Striking against or struck by other objects, initial encounter; Y92.018 Other place in single-family (private) house as the place of occurrence of the external cause; E11.9 Type 2 diabetes mellitus without complications; I10 Essential (primary) hypertension; J44.9 Chronic obstructive pulmonary disease, unspecified; E78.5 Hyperlipidemia, unspecified; I25.10 Atherosclerotic heart disease of native coronary artery without angina pectoris; K21.9 Gastro-esophageal reflux disease without esophagitis; Z79.899 Other long term (current) drug therapy; Z79.82 Long term (current) use of aspirin; Z88.0 Allergy status to penicillin; Z88.5 Allergy status to narcotic agent; Z87.891 Personal history of nicotine dependence

== ENCOUNTER 2021-06-28 09:52 | Emergency (ER) | payer MEDICARE ==
[~2021-06-28] VITALS: Ht 165.1 cm; Wt 58.0 kg
[~2021-06-28 09:52] MED LIST changes: -DOXY100C37 PO; +DOXY1CAP62 PO; +OMEP40CA4 PO; -OMEP40CA97 PO
[2021-06-28] MEDS: ALBUTEROL 90 MCG/ACT 8GM HFA INHALER INH SCH ×3 (14:50→16:02)
[2021-06-28 15:49] LABS: BASO % 0.5 % (0.0-1.0); EOS # 0.2 10^3/uL (0.0-0.5); EOS % 5.3 % (0.0-3.0); HEMATOCRIT 41.6 % (42.0-52.0); HEMOGLOBIN 13.9 g/dl (13.5-17.5); LYMPH # 0.5 10^3/uL (1.5-5.0); LYMPH % 13.4 % (24.0-44.0); MEAN CORPUSCULAR HEMOGLOBIN 29.3 pg (27.0-33.0); MEAN CORPUSCULAR HGB CONC 33.4 g/dl (32.0-36.5); MEAN CORPUSCULAR VOLUME 87.8 fl (80.0-96.0); MONO # 0.2 10^3/uL (0.0-0.8); NEUTROPHILS # 2.9 10^3/uL (1.5-8.5); NEUTROPHILS % 73.8 % (36.0-66.0); PLATELET COUNT, AUTOMATED 140 10^3/uL (150-450); RED BLOOD COUNT 4.74 10^6/uL (4.30-6.10)
[2021-06-28] MEDS ORDERED: ISOVUE-370 76% 100ML VIAL As Ordered ONE (15:54)
[2021-06-28 16:02] LABS: ALBUMIN 3.6 GM/DL (3.2-5.2); ALT/SGPT 22 U/L (12-78); BILIRUBIN,DIRECT 0.1 MG/DL (0.0-0.2); BILIRUBIN,TOTAL 0.5 MG/DL (0.2-1.0); CK-MB VALUE MASS < 1.0 NG/ML (<3.6); CPK CREATINE PHOSPHOKINASE 51 U/L (39-308); LDH LACTATE DEHYDROGENASE 131 U/L (87-241); MB/CK RELATIVE INDEX 1.96 (< OR =4); TOTAL PROTEIN 6.5 GM/DL (6.4-8.2); TROPONIN I < 0.02 NG/ML (< 0.10)
[2021-06-28 16:48] VITALS: O2SAT 96
[2021-06-28 17:32] LABS: NT-PRO BNP 151 PG/ML (<450)
--- NOTE | 2021-06-28 17:44 | REP ---
INDICATION: productive cough, chest wall pain. COMPARISON: 11/20/2020 TECHNIQUE: PA and lateral FINDINGS: There are stable chronic bilateral lung field opacities and stable bilateral calcific pleural thickening. The cardiomediastinal silhouette is unchanged. The heart is mildly enlarged. There is no change in the osseous structures. IMPRESSION: Stable chronic changes <Electronically signed by Jamie Elder > 06/28/21 [id number]
[2021-06-28] MEDS ORDERED: amLODIPine 5 MG TAB PO ONE (18:00)
[2021-06-28] MEDS ORDERED: methylPREDNISolone 125MG 2ML VIAL IV ONE (18:35)
--- NOTE | 2021-06-28 18:41 | REPVR ---
PROCEDURE INFORMATION: Exam: CTA Chest With Contrast Exam date and time: 06/28/2021 5:09 PM Age: 80 years old Clinical indication: Other: Chest wall pain, increased SOB TECHNIQUE: Imaging protocol: Computed tomographic angiography of the chest with contrast. 3D rendering (Not supervised by radiologist): MIP and/or 3D reconstructed images were created by the technologist. Radiation optimization: All CT scans at this facility use at least one of these dose optimization techniques: automated exposure control; mA and/or kV adjustment per patient size (includes targeted exams where dose is matched to clinical indication); or iterative reconstruction. Contrast material: ISOVUE 370; Contrast volume: 75 ml; Contrast route: INTRAVENOUS (IV); COMPARISON: CT ANGIO CHEST 11/24/2017 7:41 PM FINDINGS: Pulmonary arteries: There is no evidence of filling defects within the pulmonary arterial circulation to suggest pulmonary embolism although the more distal branches are not all well opacified. Aorta: There is no aneurysmal dilatation of thoracic aorta or dissection. There is extensive atheromatous plaque. Lungs: Probable emphysema with bronchial dilatation and mucous plugging in the left lower lobe. There is compressive atelectasis along the margin of the pull- through.There is subpleural atelectasis of the dependent portions of the lungs. Pleural spaces: There are calcified pleural plaques possibly due to prior specific exposure. Heart: No cardiomegaly. No pericardial effusion. 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 It is distended and contains air in fluid. Lymph nodes: No mediastinal or hilar lymphadenopathy. Bones/joints: Spondylitic fusion of multiple thoracic vertebra. Soft tissues: Unremarkable. IMPRESSION: No evidence of pulmonary emboli or pneumonia. Electronically signed by: Kellie Lockhart On 06/28/2021 18:40:57 PM
--- NOTE | 2021-06-28 19:11 | ECGEPIP ---
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
[2021-06-28] MEDS ORDERED: PRED20TA PO (19:16)
[2021-06-28] MEDS ORDERED: VENTAER INH (19:22)
[2021-06-28 20:01] VITALS: BP 148/70
== END 2021-06-28 20:04 | disposition home or self-care (01) ==
LOC: M ED 09:52
DX: J44.1 Chronic obstructive pulmonary disease with (acute) exacerbation (principal); I10 Essential (primary) hypertension; R00.1 Bradycardia, unspecified; I25.10 Atherosclerotic heart disease of native coronary artery without angina pectoris; E11.9 Type 2 diabetes mellitus without complications; K21.9 Gastro-esophageal reflux disease without esophagitis; E78.5 Hyperlipidemia, unspecified; Z87.01 Personal history of pneumonia (recurrent); Z77.090 Contact with and (suspected) exposure to asbestos; Z87.442 Personal history of urinary calculi; Z85.46 Personal history of malignant neoplasm of prostate; Z95.5 Presence of coronary angioplasty implant and graft; Z85.828 Personal history of other malignant neoplasm of skin; Z98.61 Coronary angioplasty status; Z87.891 Personal history of nicotine dependence; Z79.82 Long term (current) use of aspirin; Z79.899 Other long term (current) drug therapy; Z88.0 Allergy status to penicillin; Z88.5 Allergy status to narcotic agent
CPT/HCPCS: 71046; 71275; 80047; 80076; 82550; 82553; 83615; 83880; 84484; 85025; 87798; 87880; 93005; 93041; 94640; 96374; 99285; J2930; Q9967

== ENCOUNTER 2021-09-28 09:52 | Inpatient (IN) | payer MEDICARE ==
[~2021-09-28] VITALS: Ht 167.6 cm; Wt 57.8 kg
[~2021-09-28 09:52] MED LIST changes: +DOXY-443 PO; -DOXY1CAP62 PO; +VENTAER INH
[2021-09-28] MEDS ORDERED: fentaNYL 100 MCG/2 ML INJECTION IV ONE ×2 (10:25→15:25)
[2021-09-28 11:02] LABS: EOS # 0.1 10^3/uL (0.0-0.5); EOS % 3.4 % (0.0-3.0); HEMATOCRIT 41.5 % (42.0-52.0); HEMOGLOBIN 13.7 g/dl (13.5-17.5); LYMPH # 0.6 10^3/uL (1.5-5.0); MEAN CORPUSCULAR HEMOGLOBIN 29.3 pg (27.0-33.0); MEAN CORPUSCULAR VOLUME 88.9 fl (80.0-96.0); MONO # 0.3 10^3/uL (0.0-0.8); MONO % 8.1 % (2.0-8.0); PLATELET COUNT, AUTOMATED 114 10^3/uL (150-450); RED BLOOD COUNT 4.67 10^6/uL (4.30-6.10); WHITE BLOOD COUNT 4.1 10^3/uL (4.0-10.0)
[2021-09-28] MEDS ORDERED: ISOVUE-370 76% 100ML VIAL As Ordered ONE (11:04)
[2021-09-28 11:12] LABS: INR 1.02; PROTHROMBIN TIME 13.8 SECONDS (12.7-14.5)
[2021-09-28 11:13] LABS: PARTIAL THROMBOPLASTIN TIME 30.8 SECONDS (25.9-37.0)
[2021-09-28 11:36] LABS: BLOOD UREA NITROGEN 10 MG/DL (7-18); CALCIUM LEVEL 8.9 MG/DL (8.8-10.2); CARBON DIOXIDE LEVEL 31 MEQ/L (21-32); CHLORIDE LEVEL 101 MEQ/L (98-107); CREATININE FOR GFR 0.65 MG/DL (0.70-1.30); GLOMERULAR FILTRATION RATE > 60.0 (>35); GLUCOSE, FASTING 127 MG/DL (70-100); POTASSIUM SERUM 7.4 MEQ/L (3.5-5.1); SODIUM LEVEL 134 MEQ/L (136-145)
[2021-09-28 11:38] LABS: RSV AMPLIFICATION NEGATIVE (NEGATIVE)
[2021-09-28 11:52] LABS: ALBUMIN 3.7 GM/DL (3.2-5.2); ALT/SGPT 28 U/L (12-78); BILIRUBIN,DIRECT < 0.1 MG/DL (0.0-0.2); BILIRUBIN,TOTAL 0.5 MG/DL (0.2-1.0); FREE T4 1.09 NG/DL (0.76-1.46); LIPASE 36 U/L (73-393); NT-PRO BNP 149 PG/ML (<450); POTASSIUM SERUM 6.5 MEQ/L (3.5-5.1); TOTAL PROTEIN 6.8 GM/DL (6.4-8.2)
[2021-09-28] MEDS ORDERED: KETOROLAC 30 MG/ML 1ML VIAL IV ONE (13:00)
[2021-09-28] MEDS ORDERED: GI COCKTAIL 50ML BTL(HYOSCYAMINE/MAALOX/LIDOCAINE VISCOUS)(1:3:1) PO ONE (15:25)
[2021-09-28] MEDS ORDERED: ALBU8.5H INH (16:58)
[2021-09-28] MEDS ORDERED: MONT10TA97 PO (16:59)
[2021-09-28] MEDS ORDERED: HOME MED LIST COMPLETE! XX SCH (17:00)
[2021-09-28] MEDS: MEROPENEM INJ 1 GM in IV 1 EA IV SCH (17:38)
[2021-09-28 18:10] LABS: CK-MB VALUE MASS < 1.0 NG/ML (<3.6); CPK CREATINE PHOSPHOKINASE 40 U/L (39-308)
[2021-09-28] MEDS ORDERED: hydrALAZINE 20MG/ML 1ML VIAL (J0360 PER 20MG) IV STA (19:33)
[2021-09-28] MEDS ORDERED: KETOROLAC 30 MG/ML 1ML VIAL IV PRN (20:00)
[2021-09-28] MEDS ORDERED: LABETALOL 100MG/20ML VIAL IV STA (20:34)
[2021-09-28 21:45] VITALS: BP 184/82
[2021-09-28] MEDS ORDERED: NITROGLYCERIN 0.4 MG SUBL TABLET SL PRN (22:35)
[2021-09-28] MEDS ORDERED: ALBUTEROL 90 MCG/ACT 8GM HFA INHALER INH PRN (22:35)
[2021-09-28] MEDS ORDERED: ALBUTEROL SULFATE 2.5 MG/0.5 ML INH NEB SOLN INH PRN (22:35)
[2021-09-28] MEDS: HEPARIN SOD (PORCINE) 5000UNITS/ML 1ML VIAL/SYRINGE SC SCH (22:57)
[2021-09-28] MEDS: ATORVASTATIN 20 MG TAB PO SCH (22:58)
[2021-09-28] MEDS: atenoloL 25 MG TAB PO SCH (22:59)
[2021-09-28] MEDS ORDERED: **hydrALAZINE** 50 MG TAB PO ONE (23:00)
[2021-09-29] MEDS: SYMBICORT 160/4.5MCG INHALER 6GM INH SCH ×3 (01:10→19:16)
[2021-09-29 01:15] VITALS: BP 184/82
[2021-09-29] MEDS: MEROPENEM INJ 1 GM in IV 1 EA IV SCH ×3 (01:26→18:21)
[2021-09-29] MEDS: HYDROMORPHONE HCL 0.5 MG/ 0.5 ML SYRINGE (J1170 PER 1) IV PRN ×3 (02:18→15:38)
[2021-09-29 03:55] VITALS: BP 158/72
[2021-09-29 06:00] VITALS: BP 168/74
[2021-09-29 06:31] LABS: HEMATOCRIT 41.5 % (42.0-52.0); HEMOGLOBIN 13.8 g/dl (13.5-17.5); MEAN CORPUSCULAR HEMOGLOBIN 29.2 pg (27.0-33.0); MEAN CORPUSCULAR HGB CONC 33.3 g/dl (32.0-36.5); MEAN CORPUSCULAR VOLUME 87.9 fl (80.0-96.0); PLATELET COUNT, AUTOMATED 124 10^3/uL (150-450); RED BLOOD COUNT 4.72 10^6/uL (4.30-6.10); WHITE BLOOD COUNT 4.3 10^3/uL (4.0-10.0)
[2021-09-29 07:01] LABS: ALBUMIN 3.6 GM/DL (3.2-5.2); ALT/SGPT 21 U/L (12-78); BILIRUBIN,TOTAL 0.6 MG/DL (0.2-1.0); BLOOD UREA NITROGEN 10 MG/DL (7-18); CALCIUM LEVEL 8.2 MG/DL (8.8-10.2); CARBON DIOXIDE LEVEL 30 MEQ/L (21-32); CHLORIDE LEVEL 101 MEQ/L (98-107); CREATININE FOR GFR 0.54 MG/DL (0.70-1.30); GLOMERULAR FILTRATION RATE > 60.0 (>35); GLUCOSE, FASTING 76 MG/DL (70-100); POTASSIUM SERUM 3.5 MEQ/L (3.5-5.1); SODIUM LEVEL 140 MEQ/L (136-145); TOTAL PROTEIN 6.1 GM/DL (6.4-8.2)
[2021-09-29 09:15] VITALS: BP 128/68
[2021-09-29] MEDS: TAMSULOSIN 0.4 MG CAP PO SCH (09:24)
[2021-09-29] MEDS: HEPARIN SOD (PORCINE) 5000UNITS/ML 1ML VIAL/SYRINGE SC SCH ×2 (09:24→22:05)
[2021-09-29] MEDS: ASPIRIN 81MG ENTERIC TABLET PO SCH (09:24)
[2021-09-29] MEDS: ISOSORBIDE MON. (IMDUR) 30 MG XR TAB PO SCH (09:25)
[2021-09-29] MEDS: OMEPRAZOLE 20MG CAP PO SCH (09:25)
[2021-09-29] MEDS: MONTELUKAST 10 MG TAB PO SCH (09:25)
[2021-09-29] MEDS: PRIMIDONE 50MG TAB PO SCH (09:25)
[2021-09-29] MEDS: MAALOX 30 ML SUSP *UDC PO SCH ×2 (12:23→18:20)
[2021-09-29 14:00] VITALS: BP 122/64
[2021-09-29 22:00] VITALS: BP 155/72
[2021-09-29] MEDS: ATORVASTATIN 20 MG TAB PO SCH (22:04)
[2021-09-29] MEDS: atenoloL 25 MG TAB PO SCH (22:05)
[2021-09-29] MEDS: KETOROLAC 30 MG/ML 1ML VIAL IV PRN (22:06)
[2021-09-30] VITALS (10 sets, daily range): BP systolic 134–168; BP diastolic 62–72
[2021-09-30] MEDS ORDERED: D5W/0.45% SODIUM CHLORIDE 1,000 ML IV SCH
[2021-09-30] MEDS: MEROPENEM INJ 1 GM in IV 1 EA IV SCH ×3 (00:41→17:45)
[2021-09-30] MEDS: MAALOX 30 ML SUSP *UDC PO SCH ×4 (00:41→17:45)
[2021-09-30] MEDS: SYMBICORT 160/4.5MCG INHALER 6GM INH SCH ×2 (07:21→20:00)
[2021-09-30] MEDS ORDERED: propofoL 200 MG/20 ML VIAL As Ordered ONE (08:26)
[2021-09-30] MEDS ORDERED: LIDOCAINE 2% 100MG/5ML SDV (FOR ANES.) As Ordered ONE (08:26)
[2021-09-30] MEDS ORDERED: fentaNYL 100 MCG/2 ML INJECTION As Ordered ONE (08:26)
[2021-09-30] MEDS ORDERED: LR 1,000 ML IV SCH (09:15)
[2021-09-30] MEDS ORDERED: ONDANSETRON 4MG/2ML VIAL IV PRN (09:15)
[2021-09-30] MEDS: HEPARIN SOD (PORCINE) 5000UNITS/ML 1ML VIAL/SYRINGE SC SCH ×2 (10:06→20:16)
[2021-09-30] MEDS: PRIMIDONE 50MG TAB PO SCH (10:06)
[2021-09-30] MEDS: MONTELUKAST 10 MG TAB PO SCH (10:06)
[2021-09-30] MEDS: OMEPRAZOLE 20MG CAP PO SCH (10:07)
[2021-09-30] MEDS: ISOSORBIDE MON. (IMDUR) 30 MG XR TAB PO SCH (10:07)
[2021-09-30] MEDS: ASPIRIN 81MG ENTERIC TABLET PO SCH (10:07)
[2021-09-30] MEDS: TAMSULOSIN 0.4 MG CAP PO SCH (10:07)
[2021-09-30] MEDS ORDERED: PERCOCET 5MG/325MG TAB PO PRN (11:05)
[2021-09-30] MEDS: METOCLOPRAMIDE INJ 10MG/2ML VIAL (J2765 PER 1) IV SCH ×2 (13:10→17:45)
[2021-09-30] MEDS: KETOROLAC 30 MG/ML 1ML VIAL IV PRN (13:19)
[2021-09-30 14:05] LABS: BASO % 0.1 % (0.0-1.0); EOS # 0.1 10^3/uL (0.0-0.5); EOS % 1.1 % (0.0-3.0); HEMATOCRIT 41.2 % (42.0-52.0); HEMOGLOBIN 13.8 g/dl (13.5-17.5); LYMPH # 0.4 10^3/uL (1.5-5.0); LYMPH % 5.9 % (24.0-44.0); MEAN CORPUSCULAR HEMOGLOBIN 29.4 pg (27.0-33.0); MEAN CORPUSCULAR HGB CONC 33.5 g/dl (32.0-36.5); MEAN CORPUSCULAR VOLUME 87.7 fl (80.0-96.0); MONO # 0.4 10^3/uL (0.0-0.8); NEUTROPHILS # 6.3 10^3/uL (1.5-8.5); NEUTROPHILS % 87.6 % (36.0-66.0); PLATELET COUNT, AUTOMATED 113 10^3/uL (150-450); WHITE BLOOD COUNT 7.2 10^3/uL (4.0-10.0)
[2021-09-30 14:39] LABS: ALBUMIN 3.6 GM/DL (3.2-5.2); ALT/SGPT 19 U/L (12-78); BILIRUBIN,TOTAL 0.4 MG/DL (0.2-1.0); BLOOD UREA NITROGEN 8 MG/DL (7-18); CALCIUM LEVEL 8.8 MG/DL (8.8-10.2); CARBON DIOXIDE LEVEL 31 MEQ/L (21-32); CHLORIDE LEVEL 101 MEQ/L (98-107); CREATININE FOR GFR 0.49 MG/DL (0.70-1.30); GLOMERULAR FILTRATION RATE > 60.0 (>35); GLUCOSE, FASTING 129 MG/DL (70-100); POTASSIUM SERUM 4.6 MEQ/L (3.5-5.1); SODIUM LEVEL 137 MEQ/L (136-145); TOTAL PROTEIN 6.2 GM/DL (6.4-8.2)
[2021-09-30] MEDS ORDERED: ACETAMINOPHEN TAB 650MG DOSE (2X325MG) PO PRN (17:05)
[2021-09-30] MEDS: atenoloL 25 MG TAB PO SCH (20:17)
[2021-09-30] MEDS: ATORVASTATIN 20 MG TAB PO SCH (20:17)
[2021-10-01] MEDS: MAALOX 30 ML SUSP *UDC PO SCH ×2 (01:05→06:03)
[2021-10-01] MEDS: METOCLOPRAMIDE INJ 10MG/2ML VIAL (J2765 PER 1) IV SCH ×2 (01:05→08:16)
[2021-10-01] MEDS: MEROPENEM INJ 1 GM in IV 1 EA IV SCH ×2 (01:05→08:28)
[2021-10-01 06:00] VITALS: BP 128/72
[2021-10-01 06:30] LABS: BASO % 0.3 % (0.0-1.0); EOS # 0.1 10^3/uL (0.0-0.5); EOS % 1.9 % (0.0-3.0); HEMATOCRIT 36.4 % (42.0-52.0); HEMOGLOBIN 12.2 g/dl (13.5-17.5); LYMPH # 0.7 10^3/uL (1.5-5.0); LYMPH % 9.7 % (24.0-44.0); MEAN CORPUSCULAR HEMOGLOBIN 29.5 pg (27.0-33.0); MEAN CORPUSCULAR HGB CONC 33.5 g/dl (32.0-36.5); MEAN CORPUSCULAR VOLUME 87.9 fl (80.0-96.0); MONO # 0.5 10^3/uL (0.0-0.8); MONO % 7.1 % (2.0-8.0); NEUTROPHILS # 5.7 10^3/uL (1.5-8.5); NEUTROPHILS % 80.7 % (36.0-66.0); PLATELET COUNT, AUTOMATED 101 10^3/uL (150-450); RED BLOOD COUNT 4.14 10^6/uL (4.30-6.10)
[2021-10-01 06:52] LABS: ALT/SGPT 17 U/L (12-78); BILIRUBIN,TOTAL 0.5 MG/DL (0.2-1.0); BLOOD UREA NITROGEN 10 MG/DL (7-18); CALCIUM LEVEL 8.7 MG/DL (8.8-10.2); CARBON DIOXIDE LEVEL 31 MEQ/L (21-32); CHLORIDE LEVEL 101 MEQ/L (98-107); CREATININE FOR GFR 0.49 MG/DL (0.70-1.30); GLOMERULAR FILTRATION RATE > 60.0 (>35); GLUCOSE, FASTING 122 MG/DL (70-100); POTASSIUM SERUM 4.1 MEQ/L (3.5-5.1); SODIUM LEVEL 136 MEQ/L (136-145); TOTAL PROTEIN 5.8 GM/DL (6.4-8.2)
[2021-10-01] MEDS: HEPARIN SOD (PORCINE) 5000UNITS/ML 1ML VIAL/SYRINGE SC SCH (08:17)
[2021-10-01] MEDS: OMEPRAZOLE 20MG CAP PO SCH (08:17)
[2021-10-01 08:27] VITALS: BP 138/60
[2021-10-01] MEDS: ISOSORBIDE MON. (IMDUR) 30 MG XR TAB PO SCH (08:27)
[2021-10-01] MEDS: TAMSULOSIN 0.4 MG CAP PO SCH (08:27)
[2021-10-01] MEDS: ASPIRIN 81MG ENTERIC TABLET PO SCH (08:27)
[2021-10-01] MEDS: PRIMIDONE 50MG TAB PO SCH (08:28)
[2021-10-01] MEDS: MONTELUKAST 10 MG TAB PO SCH (08:28)
[2021-10-01] MEDS: SYMBICORT 160/4.5MCG INHALER 6GM INH SCH (08:31)
[2021-10-01] MEDS ORDERED: REGL10TA6 PO (10:26)
[2021-10-01] MEDS ORDERED: MYLASSUD PO (10:26)
== END 2021-10-01 11:58 | disposition home or self-care (01) | DRG 392 ==
LOC: M ED 09:52 → M ED INP 16:06 → ENRESERV 17:15 → M MSPAV 21:43
PROVIDERS: ADMIT Internal Medicine; ATTEND Internal Medicine
PROC: 0DB78ZX Excision of Stomach, Pylorus, Via Natural or Artificial Opening Endoscopic, Diagnostic (ICD-10-PCS; principal; 2021-09-30 08:30)
DX: R14.0 Abdominal distension (gaseous) (principal); J44.9 Chronic obstructive pulmonary disease, unspecified; I10 Essential (primary) hypertension; E78.5 Hyperlipidemia, unspecified; E11.9 Type 2 diabetes mellitus without complications; K21.9 Gastro-esophageal reflux disease without esophagitis; N40.0 Benign prostatic hyperplasia without lower urinary tract symptoms; R10.13 Epigastric pain; N48.6 Induration penis plastica; R10.12 Left upper quadrant pain; K31.89 Other diseases of stomach and duodenum; K80.20 Calculus of gallbladder without cholecystitis without obstruction; I25.10 Atherosclerotic heart disease of native coronary artery without angina pectoris; Z85.46 Personal history of malignant neoplasm of prostate; E87.5 Hyperkalemia; Z95.5 Presence of coronary angioplasty implant and graft; Z20.822 Contact with and (suspected) exposure to COVID-19; Z79.82 Long term (current) use of aspirin; Z79.899 Other long term (current) drug therapy; Z88.0 Allergy status to penicillin; Z88.5 Allergy status to narcotic agent; Z85.828 Personal history of other malignant neoplasm of skin; Z98.41 Cataract extraction status, right eye

== ENCOUNTER 2022-01-27 08:21 | Emergency (ER) | payer MEDICARE, OTHER ==
[~2022-01-27] VITALS: Ht 170.2 cm; Wt 60.3 kg
[~2022-01-27 08:21] MED LIST changes: +ALBU8.5H INH; +MONT10TA97 PO; +MYLASSUD PO; +REGL10TA6 PO
[2022-01-27] MEDS ORDERED: ALBUTEROL SULFATE 2.5 MG/0.5 ML INH NEB SOLN As Ordered ONE (09:00)
[2022-01-27 09:03] LABS: BASO % 0.1 % (0.0-1.0); EOS % 0.5 % (0.0-3.0); HEMATOCRIT 41.3 % (42.0-52.0); HEMOGLOBIN 13.9 g/dl (13.5-17.5); LYMPH # 0.4 10^3/uL (1.5-5.0); LYMPH % 5.6 % (24.0-44.0); MEAN CORPUSCULAR HEMOGLOBIN 29.3 pg (27.0-33.0); MEAN CORPUSCULAR HGB CONC 33.7 g/dl (32.0-36.5); MEAN CORPUSCULAR VOLUME 87.1 fl (80.0-96.0); MONO # 0.6 10^3/uL (0.0-0.8); MONO % 8.4 % (2.0-8.0); NEUTROPHILS # 6.4 10^3/uL (1.5-8.5); NEUTROPHILS % 84.1 % (36.0-66.0); PLATELET COUNT, AUTOMATED 126 10^3/uL (150-450); RED BLOOD COUNT 4.74 10^6/uL (4.30-6.10); WHITE BLOOD COUNT 7.6 10^3/uL (4.0-10.0)
[2022-01-27] MEDS ORDERED: methylPREDNISolone 125MG 2ML VIAL IV ONE (09:05)
[2022-01-27] MEDS ORDERED: IPRATROPIUM 0.5MG/ALBUTEROL 2.5MG INH SOL UD 3ML (DUONEB) NEB ONE (09:05)
[2022-01-27] MEDS ORDERED: ALBUTEROL SULFATE 2.5 MG/0.5 ML INH NEB SOLN INH ONE (09:05)
[2022-01-27 09:39] LABS: ALBUMIN 3.8 GM/DL (3.2-5.2); ALT/SGPT 27 U/L (12-78); BILIRUBIN,DIRECT 0.2 MG/DL (0.0-0.2); BILIRUBIN,TOTAL 0.5 MG/DL (0.2-1.0); BLOOD UREA NITROGEN 11 MG/DL (7-18); CARBON DIOXIDE LEVEL 35 MEQ/L (21-32); CHLORIDE LEVEL 97 MEQ/L (98-107); CREATININE FOR GFR 0.52 MG/DL (0.70-1.30); GLOMERULAR FILTRATION RATE > 60.0 (>35); GLUCOSE, FASTING 133 MG/DL (70-100); NT-PRO BNP 467 PG/ML (<450); POTASSIUM SERUM 4.5 MEQ/L (3.5-5.1); SODIUM LEVEL 136 MEQ/L (136-145); THYROID STIMULATING HORMONE 0.815 uIU/ML (0.358-3.740); THYROXINE (T4) 7.7 UG/DL (4.5-12.0); TOTAL PROTEIN 6.8 GM/DL (6.4-8.2)
[2022-01-27] MEDS ORDERED: ISOVUE-370 76% 100ML VIAL As Ordered ONE (10:10)
[2022-01-27] MEDS ORDERED: MOXI400T11 PO (11:51)
[2022-01-27] MEDS ORDERED: PRED20TA PO (11:51)
[2022-01-27 13:00] VITALS: BP 148/62
== END 2022-01-27 13:07 | disposition home or self-care (01) ==
LOC: M ED 08:21
DX: J44.0 Chronic obstructive pulmonary disease with (acute) lower respiratory infection (principal); J21.1 Acute bronchiolitis due to human metapneumovirus; E11.9 Type 2 diabetes mellitus without complications; I10 Essential (primary) hypertension; K21.9 Gastro-esophageal reflux disease without esophagitis; M19.90 Unspecified osteoarthritis, unspecified site; Z79.899 Other long term (current) drug therapy; Z79.82 Long term (current) use of aspirin; Z88.0 Allergy status to penicillin; Z88.5 Allergy status to narcotic agent
CPT/HCPCS: 71045; 71275; 80047; 80048; 80076; 83605; 83880; 84436; 84443; 84484; 85025; 87040; 87798; 93005; 93041; 94640; 94760; 96374; 99285; J2930; Q9967

== ENCOUNTER 2022-02-09 09:24 | Emergency (ER) | payer MEDICARE, OTHER ==
[~2022-02-09] VITALS: Ht 170.2 cm; Wt 60.8 kg
[~2022-02-09 09:24] MED LIST changes: +MOXI400T11 PO
[2022-02-09 11:20] VITALS: O2SAT 96
[2022-02-09] MEDS ORDERED: methylPREDNISolone 125MG 2ML VIAL IV PRN (12:00)
[2022-02-09] MEDS ORDERED: BEBTELOVIMAB 175MG 2ML VIAL (EUA) IV ONE (12:00)
[2022-02-09] MEDS ORDERED: ALBUTEROL 90 MCG/ACT 8GM HFA INHALER INH PRN (12:00)
[2022-02-09] MEDS ORDERED: diphenhydrAMINE 50MG/ML VIAL (J1200) IV PRN (12:00)
[2022-02-09] MEDS ORDERED: ALBUTEROL SULFATE 2.5 MG/0.5 ML INH NEB SOLN INH PRN (12:00)
[2022-02-09 12:56] VITALS: BP 161/70
[2022-02-09] MEDS ORDERED: COMBAER6 INH (14:37)
[2022-02-09 14:49] VITALS: BP 151/72
== END 2022-02-09 14:53 | disposition home or self-care (01) ==
LOC: M ED 09:24
DX: R05.9 Cough, unspecified (principal); J02.9 Acute pharyngitis, unspecified; U07.1 COVID-19; B97.81 Human metapneumovirus as the cause of diseases classified elsewhere; E11.9 Type 2 diabetes mellitus without complications; I10 Essential (primary) hypertension; J44.9 Chronic obstructive pulmonary disease, unspecified; I25.10 Atherosclerotic heart disease of native coronary artery without angina pectoris; Z85.46 Personal history of malignant neoplasm of prostate; Z87.09 Personal history of other diseases of the respiratory system; Z79.899 Other long term (current) drug therapy; Z79.82 Long term (current) use of aspirin; Z88.0 Allergy status to penicillin; Z88.5 Allergy status to narcotic agent; Z87.891 Personal history of nicotine dependence

== ENCOUNTER 2022-03-31 11:22 | Emergency (ER) | payer MEDICARE, OTHER ==
[~2022-03-31] VITALS: Ht 170.2 cm; Wt 58.2 kg
[~2022-03-31 11:22] MED LIST changes: +ALBU2.5V10 INH; -ALBU83IN INH; +COMBAER6 INH
[2022-03-31] MEDS ORDERED: NS 500 ML IV ONE (12:00)
[2022-03-31 12:47] LABS: BASO % 0.5 % (0.0-1.0); EOS # 0.1 10^3/uL (0.0-0.5); EOS % 3.6 % (0.0-3.0); HEMATOCRIT 39.6 % (42.0-52.0); HEMOGLOBIN 13.2 g/dl (13.5-17.5); LYMPH # 0.6 10^3/uL (1.5-5.0); LYMPH % 14.8 % (24.0-44.0); MEAN CORPUSCULAR HEMOGLOBIN 29.7 pg (27.0-33.0); MEAN CORPUSCULAR HGB CONC 33.3 g/dl (32.0-36.5); MEAN CORPUSCULAR VOLUME 89.2 fl (80.0-96.0); MONO # 0.3 10^3/uL (0.0-0.8); MONO % 8.2 % (2.0-8.0); NEUTROPHILS # 2.8 10^3/uL (1.5-8.5); NEUTROPHILS % 72.4 % (36.0-66.0); PLATELET COUNT, AUTOMATED 144 10^3/uL (150-450); RED BLOOD COUNT 4.44 10^6/uL (4.30-6.10); WHITE BLOOD COUNT 3.9 10^3/uL (4.0-10.0)
[2022-03-31] MEDS ORDERED: ISOVUE-370 76% 100ML VIAL As Ordered ONE (13:04)
[2022-03-31] MEDS ORDERED: KETOROLAC 30 MG/ML 1ML VIAL IV ONE (15:05)
[2022-03-31] MEDS ORDERED: SIME180C25 PO (15:59)
[2022-03-31] MEDS ORDERED: SIMETHICONE 80MG CHEW TAB PO ONE (16:00)
[2022-03-31 16:17] VITALS: BP 147/75
== END 2022-03-31 16:18 | disposition home or self-care (01) ==
LOC: M ED 11:22
DX: R10.32 Left lower quadrant pain (principal); R14.0 Abdominal distension (gaseous); E11.9 Type 2 diabetes mellitus without complications; I10 Essential (primary) hypertension; J44.9 Chronic obstructive pulmonary disease, unspecified; J45.909 Unspecified asthma, uncomplicated; E78.00 Pure hypercholesterolemia, unspecified; K21.9 Gastro-esophageal reflux disease without esophagitis; Z85.46 Personal history of malignant neoplasm of prostate; Z87.19 Personal history of other diseases of the digestive system; Z87.442 Personal history of urinary calculi; Z95.5 Presence of coronary angioplasty implant and graft; Z88.0 Allergy status to penicillin; Z79.899 Other long term (current) drug therapy; Z79.82 Long term (current) use of aspirin
CPT/HCPCS: 74177; 80047; 81001; 85025; 96361; 96374; 99284; J1885; Q9967

== ENCOUNTER 2022-05-08 10:47 | Emergency (ER) | payer MEDICARE, OTHER ==
[~2022-05-08] VITALS: Ht 170.2 cm; Wt 58.4 kg
[~2022-05-08 10:47] MED LIST changes: +SIME180C25 PO
[2022-05-08 11:48] LABS: BASO % 0.2 % (0.0-1.0); EOS % 0.1 % (0.0-3.0); HEMATOCRIT 38.3 % (42.0-52.0); HEMOGLOBIN 12.7 g/dl (13.5-17.5); LYMPH # 0.2 10^3/uL (1.5-5.0); LYMPH % 2.2 % (24.0-44.0); MEAN CORPUSCULAR HEMOGLOBIN 28.8 pg (27.0-33.0); MEAN CORPUSCULAR HGB CONC 33.2 g/dl (32.0-36.5); MEAN CORPUSCULAR VOLUME 86.8 fl (80.0-96.0); MONO # 0.6 10^3/uL (0.0-0.8); NEUTROPHILS # 8.2 10^3/uL (1.5-8.5); NEUTROPHILS % 90.1 % (36.0-66.0); PLATELET COUNT, AUTOMATED 111 10^3/uL (150-450); RED BLOOD COUNT 4.41 10^6/uL (4.30-6.10); VENOUS BASE EXCESS 2.9 (-2.0-2.0); VENOUS HCO3 28.3 MEQ/L (23.0-27.0); VENOUS O2 SATURATION 91.2 % (60.0-80.0); VENOUS PARTIAL PRESSURE CO2 46.7 mmHg (38.0-50.0); VENOUS PARTIAL PRESSURE O2 59.7 mmHg (30.0-50.0); VENOUS PH 7.401 UNITS (7.330-7.430); VENOUS STANDARD HCO3 26.9 MEQ/L; VENOUS TOTAL CO2 29.8 MEQ/L (24.0-28.0); WHITE BLOOD COUNT 9.1 10^3/uL (4.0-10.0)
[2022-05-08] MEDS ORDERED: ALBUTEROL 90 MCG/ACT 8GM HFA INHALER INH ONE (11:50)
[2022-05-08 12:30] LABS: ALBUMIN 3.5 GM/DL (3.2-5.2); ALT/SGPT 22 U/L (12-78); BILIRUBIN,DIRECT 0.1 MG/DL (0.0-0.2); BILIRUBIN,TOTAL 0.6 MG/DL (0.2-1.0); BLOOD UREA NITROGEN 11 MG/DL (7-18); CALCIUM LEVEL 8.8 MG/DL (8.8-10.2); CARBON DIOXIDE LEVEL 27 MEQ/L (21-32); CHLORIDE LEVEL 103 MEQ/L (98-107); CREATININE FOR GFR 0.46 MG/DL (0.70-1.30); GLOMERULAR FILTRATION RATE > 60.0 (>35); GLUCOSE, FASTING 154 MG/DL (70-100); NT-PRO BNP 246 PG/ML (<450); RSV AMPLIFICATION NEGATIVE (NEGATIVE); SODIUM LEVEL 137 MEQ/L (136-145); THYROID STIMULATING HORMONE 0.356 uIU/ML (0.358-3.740); TOTAL PROTEIN 5.7 GM/DL (6.4-8.2)
[2022-05-08] MEDS ORDERED: ISOVUE-370 76% 100ML VIAL As Ordered ONE (12:43)
[2022-05-08] MEDS ORDERED: CEFD300C PO (14:20)
[2022-05-08] MEDS ORDERED: ZITHTAB PO (14:20)
[2022-05-08] MEDS ORDERED: PRED20TA PO (14:21)
[2022-05-08 14:45] VITALS: BP 133/60
[2022-05-08] MEDS ORDERED: NOXI1TAB PO (14:55)
[2022-05-08] MEDS ORDERED: CALC1TAB63 PO (14:55)
[2022-05-08] MEDS ORDERED: VITMTA PO (14:55)
== END 2022-05-08 15:08 | disposition home or self-care (01) ==
LOC: M ED 10:47
DX: J18.9 Pneumonia, unspecified organism (principal); R91.1 Solitary pulmonary nodule; E11.9 Type 2 diabetes mellitus without complications; I10 Essential (primary) hypertension; J44.9 Chronic obstructive pulmonary disease, unspecified; E78.5 Hyperlipidemia, unspecified; I25.10 Atherosclerotic heart disease of native coronary artery without angina pectoris; K21.9 Gastro-esophageal reflux disease without esophagitis; N48.6 Induration penis plastica; Z85.46 Personal history of malignant neoplasm of prostate; Z99.81 Dependence on supplemental oxygen; Z88.5 Allergy status to narcotic agent; Z79.899 Other long term (current) drug therapy; Z79.82 Long term (current) use of aspirin
CPT/HCPCS: 36415; 71045; 71275; 80048; 80076; 82803; 83605; 83880; 84443; 84484; 85025; 87040; 87631; 93005; 93041; 94640; 94760; 99285; Q9967

== ENCOUNTER → 2022-06-07 | Outpatient (CLI) | payer OTHER ==
[~2022-06-07] MED LIST changes: +CALC1TAB63 PO; +CEFD300C PO; +ISOVUE-370 76% 100ML VIAL As Ordered ONE; +NOXI1TAB PO; +VITMTA PO
== END ==
LOC: M RAD 13:00
PROVIDERS: ATTEND Nurse Practitioner Family
DX: N28.1 Cyst of kidney, acquired (principal); M48.061 Spinal stenosis, lumbar region without neurogenic claudication; K80.20 Calculus of gallbladder without cholecystitis without obstruction; R93.5 Abnormal findings on diagnostic imaging of other abdominal regions, including retroperitoneum; N42.0 Calculus of prostate
CPT/HCPCS: 74178; Q9967

== ENCOUNTER → 2022-06-18 | Outpatient (CLI) | payer OTHER ==
[~2022-06-18] MED LIST changes: -ISOVUE-370 76% 100ML VIAL As Ordered ONE
== END ==
LOC: M SOG 14:01
PROVIDERS: ATTEND Orthopaedic Surgery Hand Surgery
DX: M19.041 Primary osteoarthritis, right hand (principal); M19.042 Primary osteoarthritis, left hand

== ENCOUNTER 2022-10-23 08:38 | Outpatient (RCR) | payer OTHER ==
[~2022-10-23 08:38] MED LIST changes: -ISOS20TA PO; +ISOS20TA53 PO
[2022-11-06] MEDS ORDERED: TOLT4CAP3 PO (09:18)
[2022-11-06] MEDS ORDERED: STIO1AER IN (09:18)
[2022-11-06] MEDS ORDERED: IRON1TAB2 PO (09:19)
[2022-11-06] MEDS ORDERED: REGL5TAB2 PO (09:41)
== END 2022-11-19 ==
LOC: M OT 08:38
PROVIDERS: ATTEND Family Medicine
DX: M72.0 Palmar fascial fibromatosis [Dupuytren] (principal)

== ENCOUNTER → 2022-10-25 | Outpatient (CLI) | payer OTHER ==
[~2022-10-25] MED LIST changes: +ISOVUE-370 76% 100ML VIAL As Ordered ONE
== END ==
LOC: M RAD 11:18
PROVIDERS: ATTEND Nurse Practitioner Family
DX: R31.9 Hematuria, unspecified (principal); N28.1 Cyst of kidney, acquired
CPT/HCPCS: 74178; Q9967

== ENCOUNTER → 2022-11-17 | Outpatient (CLI) | payer OTHER ==
[~2022-11-17] MED LIST changes: +IRON1TAB2 PO; -ISOVUE-370 76% 100ML VIAL As Ordered ONE; +REGL5TAB2 PO; +STIO1AER IN; +TOLT4CAP3 PO
== END ==
LOC: M LABSMTC 09:57
PROVIDERS: ATTEND Orthopaedic Surgery Hand Surgery
DX: Z01.812 Encounter for preprocedural laboratory examination (principal); Z11.52 Encounter for screening for COVID-19

== ENCOUNTER 2022-11-20 07:29 | Day surgery (SDC) | payer OTHER ==
[~2022-11-20] VITALS: Ht 167.6 cm; Wt 59.0 kg
[~2022-11-20 07:29] MED LIST changes: +BUPIVACAINE HCL 0.25% 30ML VIAL As Ordered ONE; +POLYSPORIN TOPICAL OINTMENT 15GM As Ordered ONE
[2022-11-20] MEDS ORDERED: ceFAZolin SOD 2 GM in IV 1 EA IV ONE (09:05)
[2022-11-20] MEDS ORDERED: LR 1,000 ML IV SCH ×2 (09:05→10:35)
[2022-11-20] MEDS ORDERED: ceFAZolin 2 GM/D5W 50 ML IV BAG As Ordered ONE (09:11)
[2022-11-20] MEDS ORDERED: fentaNYL 100 MCG/2 ML INJECTION As Ordered ONE (09:39)
[2022-11-20] MEDS ORDERED: propofoL 200 MG/20 ML VIAL As Ordered ONE (09:39)
[2022-11-20] MEDS ORDERED: KETOROLAC 60MG 2ML VIAL As Ordered ONE (09:40)
[2022-11-20] MEDS ORDERED: ONDANSETRON 4MG 2ML VIAL As Ordered ONE (09:40)
[2022-11-20] MEDS ORDERED: LIDOCAINE 2% 100MG/5ML SDV (FOR ANES.) As Ordered ONE (09:40)
[2022-11-20] MEDS ORDERED: ACETAMINOPHEN 1000MG 100ML IV BAG As Ordered ONE (09:40)
[2022-11-20] MEDS ORDERED: hydrALAZINE 20MG/ML 1ML VIAL As Ordered ONE (09:40)
[2022-11-20] MEDS ORDERED: ONDANSETRON 4MG 2ML VIAL IV PRN (10:35)
[2022-11-20] MEDS ORDERED: oxyCODONE 5MG TAB PO PRN (10:35)
[2022-11-20] MEDS ORDERED: fentaNYL 100 MCG/2 ML INJECTION IV PRN (10:35)
[2022-11-20 13:30] VITALS: BP 153/70
== END 2022-11-20 13:30 | disposition home or self-care (01) ==
LOC: M SDC 07:29
PROVIDERS: ATTEND Orthopaedic Surgery Hand Surgery
DX: M72.0 Palmar fascial fibromatosis [Dupuytren] (principal); I10 Essential (primary) hypertension; E78.00 Pure hypercholesterolemia, unspecified; E11.9 Type 2 diabetes mellitus without complications; K58.9 Irritable bowel syndrome, unspecified; K21.9 Gastro-esophageal reflux disease without esophagitis; J44.9 Chronic obstructive pulmonary disease, unspecified; Z95.5 Presence of coronary angioplasty implant and graft; Z85.46 Personal history of malignant neoplasm of prostate; Z79.899 Other long term (current) drug therapy; Z79.82 Long term (current) use of aspirin; Z87.891 Personal history of nicotine dependence; Z88.5 Allergy status to narcotic agent
CPT/HCPCS: 26123; 88304; J1100; J2405

== ENCOUNTER 2023-07-24 13:35 | Emergency (ER) | payer MEDICARE, OTHER ==
[~2023-07-24] VITALS: Ht 170.2 cm; Wt 55.0 kg
[~2023-07-24 13:35] MED LIST changes: -BUPIVACAINE HCL 0.25% 30ML VIAL As Ordered ONE; +FERR324T21 PO; +GABA-282 PO; +HYDR25OIN TOP; +METH4TAB8 PO; +MONT-5 PO; +NESI12.5 PO; +OPTI0.5D5 OP; +PACE200T PO; +PHEN-500 PO; -POLYSPORIN TOPICAL OINTMENT 15GM As Ordered ONE; +PRED5PAK PO; -SING10TA32 PO; +STRI1AER2 IN; +TRIA1PST TOP; +[UNRECOGNIZED DRUG - CODE] PO
[2023-07-24] MEDS ORDERED: IPRATROPIUM 0.5MG/ALBUTEROL 2.5MG INH SOL UD 3ML (DUONEB) NEB ONE (17:00)
[2023-07-24 18:09] LABS: BASO % 0.4 % (0.0-1.0); EOS # 0.1 10^3/uL (0.0-0.5); HEMATOCRIT 35.4 % (42.0-52.0); HEMOGLOBIN 11.7 g/dl (13.5-17.5); LYMPH # 0.4 10^3/uL (1.5-5.0); LYMPH % 7.7 % (24.0-44.0); MEAN CORPUSCULAR HEMOGLOBIN 29.5 pg (27.0-33.0); MEAN CORPUSCULAR HGB CONC 33.1 g/dl (32.0-36.5); MEAN CORPUSCULAR VOLUME 89.4 fl (80.0-96.0); MONO # 0.4 10^3/uL (0.0-0.8); MONO % 7.5 % (2.0-8.0); NEUTROPHILS % 82.2 % (36.0-66.0); PLATELET COUNT, AUTOMATED 130 10^3/uL (150-450); RED BLOOD COUNT 3.96 10^6/uL (4.30-6.10); WHITE BLOOD COUNT 4.8 10^3/uL (4.0-10.0)
[2023-07-24 18:22] LABS: BLOOD UREA NITROGEN 10 MG/DL (9-23); CALCIUM LEVEL 8.1 MG/DL (8.3-10.6); CARBON DIOXIDE LEVEL 32 MMOL/L (20-31); CHLORIDE LEVEL 101 MMOL/L (98-107); CK-MB VALUE MASS < 1.0 NG/ML (<3.6); CPK CREATINE PHOSPHOKINASE 24 U/L (46-171); CREATININE FOR GFR 0.44 MG/DL (0.70-1.30); GLOMERULAR FILTRATION RATE > 60.0 (>35); GLUCOSE, FASTING 168 MG/DL (74-106); MB/CK RELATIVE INDEX 4.16 (< OR =4); POTASSIUM SERUM 3.9 MMOL/L (3.5-5.1); SODIUM LEVEL 136 MMOL/L (136-145)
[2023-07-24 18:58] VITALS: O2SAT 94
[2023-07-24] MEDS ORDERED: DOXY-443 PO (19:28)
[2023-07-24] MEDS ORDERED: BENZ-18 PO (19:28)
[2023-07-24 20:08] VITALS: BP 178/79; TEMP 97.2; O2SAT 96
== END 2023-07-24 20:39 | disposition home or self-care (01) ==
LOC: M ED 13:35
DX: J06.9 Acute upper respiratory infection, unspecified (principal); E11.9 Type 2 diabetes mellitus without complications; I25.10 Atherosclerotic heart disease of native coronary artery without angina pectoris; J44.9 Chronic obstructive pulmonary disease, unspecified; E78.5 Hyperlipidemia, unspecified; Z85.46 Personal history of malignant neoplasm of prostate; Z87.891 Personal history of nicotine dependence; Z88.5 Allergy status to narcotic agent; Z79.899 Other long term (current) drug therapy; Z79.51 Long term (current) use of inhaled steroids; Z79.52 Long term (current) use of systemic steroids

== ENCOUNTER 2023-11-12 10:30 | Emergency (ER) | payer OTHER ==
[~2023-11-12] VITALS: Ht 167.6 cm; Wt 56.9 kg
[~2023-11-12 10:30] MED LIST changes: +BENZ-18 PO; +OPTI0.5D2 OP; -OPTI0.5D5 OP
[2023-11-12] MEDS ORDERED: METO25TA4 PO (11:30)
[2023-11-12] MEDS ORDERED: GLUCLIQ37 PO (11:30)
[2023-11-12] MEDS ORDERED: OMEP40CA4 PO (11:30)
[2023-11-12] MEDS ORDERED: TOLT2TAB12 PO (11:30)
[2023-11-12 12:50] LABS: BASO % 0.4 % (0.0-1.0); EOS % 0.4 % (0.0-3.0); HEMATOCRIT 38.4 % (42.0-52.0); HEMOGLOBIN 12.8 g/dl (13.5-17.5); LYMPH # 0.3 10^3/uL (1.5-5.0); LYMPH % 6.1 % (24.0-44.0); MEAN CORPUSCULAR HEMOGLOBIN 30.5 pg (27.0-33.0); MEAN CORPUSCULAR HGB CONC 33.3 g/dl (32.0-36.5); MEAN CORPUSCULAR VOLUME 91.6 fl (80.0-96.0); MONO # 0.2 10^3/uL (0.0-0.8); MONO % 4.3 % (2.0-8.0); NEUTROPHILS # 4.3 10^3/uL (1.5-8.5); NEUTROPHILS % 88.2 % (36.0-66.0); PLATELET COUNT, AUTOMATED 110 10^3/uL (150-450); RED BLOOD COUNT 4.19 10^6/uL (4.30-6.10); WHITE BLOOD COUNT 4.9 10^3/uL (4.0-10.0)
[2023-11-12 13:09] LABS: BLOOD UREA NITROGEN 11 MG/DL (9-23); CARBON DIOXIDE LEVEL 33 MMOL/L (20-31); CHLORIDE LEVEL 100 MMOL/L (98-107); CREATININE FOR GFR 0.48 MG/DL (0.70-1.30); GLOMERULAR FILTRATION RATE > 60.0 (>35); GLUCOSE, FASTING 161 MG/DL (74-106); POTASSIUM SERUM 4.5 MMOL/L (3.5-5.1); SODIUM LEVEL 134 MMOL/L (136-145)
[2023-11-12] MEDS ORDERED: CEFDINIR 300 MG CAP (OMNICEF) PO ONE (13:55)
[2023-11-12] MEDS ORDERED: CEFD300CAP PO ×2 (13:57→14:12)
[2023-11-12] MEDS ORDERED: MIRA3350 PO ×2 (13:57→14:12)
[2023-11-12 14:00] VITALS: BP 166/84; TEMP 96.3; O2SAT 98
== END 2023-11-12 14:14 | disposition home or self-care (01) ==
LOC: M ED 10:30
DX: N39.0 Urinary tract infection, site not specified (principal); K59.00 Constipation, unspecified; N21.0 Calculus in bladder; N20.0 Calculus of kidney; I48.91 Unspecified atrial fibrillation; I10 Essential (primary) hypertension; E78.5 Hyperlipidemia, unspecified; J44.9 Chronic obstructive pulmonary disease, unspecified; Z87.442 Personal history of urinary calculi; Z95.5 Presence of coronary angioplasty implant and graft; Z79.899 Other long term (current) drug therapy; Z88.5 Allergy status to narcotic agent

== ENCOUNTER 2023-12-01 09:57 | Emergency (ER) | payer OTHER ==
[~2023-12-01] VITALS: Ht 167.6 cm; Wt 57.9 kg
[~2023-12-01 09:57] MED LIST changes: +CEFD300CAP PO; +GLUCLIQ37 PO; +METO25TA4 PO; +MIRA3350 PO; +TOLT2TAB12 PO
[2023-12-01 09:58] VITALS: TEMP 97.2
[2023-12-01] MEDS: ONDANSETRON 4MG 2ML VIAL IV ONE (14:14)
[2023-12-01] MEDS: fentaNYL 100 MCG/2 ML INJECTION IV ONE (14:14)
[2023-12-01] MEDS: NS 1,000 ML IV ONE (14:15)
[2023-12-01 14:43] LABS: BASO % 0.3 % (0.0-1.0); EOS % 0.9 % (0.0-3.0); HEMATOCRIT 37.6 % (42.0-52.0); HEMOGLOBIN 12.7 g/dl (13.5-17.5); LYMPH # 0.2 10^3/uL (1.5-5.0); LYMPH % 6.9 % (24.0-44.0); MEAN CORPUSCULAR HEMOGLOBIN 30.4 pg (27.0-33.0); MEAN CORPUSCULAR HGB CONC 33.8 g/dl (32.0-36.5); MONO # 0.4 10^3/uL (0.0-0.8); MONO % 12.5 % (2.0-8.0); NEUTROPHILS # 2.5 10^3/uL (1.5-8.5); NEUTROPHILS % 78.2 % (36.0-66.0); PLATELET COUNT, AUTOMATED 100 10^3/uL (150-450); RED BLOOD COUNT 4.18 10^6/uL (4.30-6.10); WHITE BLOOD COUNT 3.2 10^3/uL (4.0-10.0)
[2023-12-01 14:58] LABS: INR 1.11
[2023-12-01 14:59] LABS: PARTIAL THROMBOPLASTIN TIME 29.5 SECONDS (24.8-34.2)
[2023-12-01 15:02] LABS: LIPASE 22 U/L (12-53)
[2023-12-01 15:04] LABS: ALBUMIN 3.5 G/DL (3.2-5.2); ALKALINE PHOSPHATASE 75 U/L (46-116); ALT/SGPT 21 U/L (7.0-40); AST/SGOT 25 U/L (<34); BILIRUBIN,DIRECT 0.2 MG/DL (<0.4); BILIRUBIN,TOTAL 0.5 MG/DL (0.3-1.2); BLOOD UREA NITROGEN 10 MG/DL (9-23); CALCIUM LEVEL 8.4 MG/DL (8.3-10.6); CARBON DIOXIDE LEVEL 31 MMOL/L (20-31); CHLORIDE LEVEL 96 MMOL/L (98-107); CREATININE FOR GFR 0.47 MG/DL (0.70-1.30); GLOMERULAR FILTRATION RATE > 60.0 (>35); GLUCOSE, FASTING 143 MG/DL (74-106); POTASSIUM SERUM 4.2 MMOL/L (3.5-5.1); SODIUM LEVEL 132 MMOL/L (136-145); TOTAL PROTEIN 5.7 G/DL (5.7-8.2)
[2023-12-01] MEDS ORDERED: ISOVUE-370 76% 100ML VIAL As Ordered ONE (15:25)
[2023-12-01] MEDS ORDERED: BACT800T5 PO (17:01)
[2023-12-01] MEDS ORDERED: HYDR-3713 PO (17:25)
[2023-12-01 17:27] VITALS: BP 168/66; O2SAT 95
== END 2023-12-01 17:37 | disposition home or self-care (01) ==
LOC: M ED 09:57
DX: N39.0 Urinary tract infection, site not specified (principal); N21.1 Calculus in urethra; N20.0 Calculus of kidney; I48.91 Unspecified atrial fibrillation; I25.10 Atherosclerotic heart disease of native coronary artery without angina pectoris; E11.9 Type 2 diabetes mellitus without complications; E78.5 Hyperlipidemia, unspecified; I10 Essential (primary) hypertension; K21.9 Gastro-esophageal reflux disease without esophagitis; Z87.442 Personal history of urinary calculi; J44.9 Chronic obstructive pulmonary disease, unspecified; Z95.5 Presence of coronary angioplasty implant and graft; Z95.1 Presence of aortocoronary bypass graft; Z87.891 Personal history of nicotine dependence; K80.20 Calculus of gallbladder without cholecystitis without obstruction; Z79.899 Other long term (current) drug therapy; Z88.5 Allergy status to narcotic agent
CPT/HCPCS: 74178; 80048; 80076; 81001; 83605; 83690; 85025; 85610; 85730; 87040; 87086; 96361; 96374; 96375; 99284; J2405; J3010; Q9967

== ENCOUNTER → 2023-12-26 | Outpatient (REF) | payer OTHER ==
[~2023-12-26] MED LIST changes: +HYDR-3713 PO
[2023-12-26 13:54] LABS: AMORPHOUS SEDIMENT SMALL (NEGATIVE); APPEARANCE, URINE CLOUDY (CLEAR); BACTERIA, URINE AUTO NEGATIVE (NEGATIVE); BILIRUBIN, URINE AUTO NEGATIVE (NEGATIVE); BLOOD, URINE BLOOD NEGATIVE (NEGATIVE); COLOR, URINE AMBER (YELLOW); GLUCOSE, URINE (UA) AUTO NEGATIVE (NEGATIVE); KETONE, URINE AUTO NEGATIVE (NEGATIVE); LEUKOCYTE ESTERASE, URINE AUTO NEGATIVE (NEGATIVE); NITRITE, URINE AUTO NEGATIVE (NEGATIVE); PROTEIN, URINE AUTO NEGATIVE (NEGATIVE); RBC, URINE AUTO 2 /HPF (0-3); SPECIFIC GRAVITY URINE AUTO 1.015 (1.002-1.035); SQUAMOUS EPITHELIAL CELL UR AU 0 /HPF (0-6); UROBILINOGEN, URINE AUTO 0.2 mg/dL (0.0-2.0); WBC, URINE AUTO 0 /HPF (0-3)
== END ==
LOC: M SMT 13:08
PROVIDERS: ATTEND Nurse Practitioner Family
DX: N20.0 Calculus of kidney (principal)

== ENCOUNTER → 2024-02-06 | Day surgery (SDC) | payer OTHER ==
[~2024-02-06] VITALS: Ht 167.6 cm; Wt 56.0 kg
[~2024-02-06] MED LIST changes: +ACETAMINOPHEN 1000MG 100ML IV BAG As Ordered ONE; +ACETAMINOPHEN TAB 650MG DOSE (2X325MG) PO PRN; +CEFD1CAP9 PO; +IBUP200C25 PO; +LIDOCAINE 2% 100MG/5ML SDV (FOR ANES.) As Ordered ONE; +LR 1,000 ML IV SCH; +ONDANSETRON 4MG 2ML VIAL As Ordered ONE; +ONDANSETRON 4MG 2ML VIAL IV PRN; +OXYB5TAB14 PO; +PIOG1TAB37 PO; +THERTAB52 PO; +fentaNYL 100 MCG/2 ML INJECTION As Ordered ONE; +propofoL 200 MG/20 ML VIAL As Ordered ONE
[2024-02-06] MEDS: LR 1,000 ML IV SCH (10:19)
[2024-02-06] MEDS: ceFAZolin SOD 2 GM in IV 1 EA IV ONE (11:20)
[2024-02-06] MEDS: ISOVUE-300 61% 100ML VIAL As Ordered ONE (11:56)
[2024-02-06] MEDS: HYDROMORPHONE HCL 0.5 MG/ 0.5 ML SYRINGE IV PRN (12:39)
[2024-02-06] MEDS: oxyCODONE 5MG TAB PO PRN (13:30)
[2024-02-06] MEDS: fentaNYL 100 MCG/2 ML INJECTION IV PRN (13:30)
[2024-02-06 14:55] VITALS: BP 186/67; TEMP 97.6; O2SAT 96
== END | disposition home or self-care (01) ==
LOC: M SDC 09:11
PROVIDERS: ATTEND Urology
DX: N21.0 Calculus in bladder (principal); I48.91 Unspecified atrial fibrillation; I20.9 Angina pectoris, unspecified; I25.2 Old myocardial infarction; E11.9 Type 2 diabetes mellitus without complications; Z88.5 Allergy status to narcotic agent; Z79.899 Other long term (current) drug therapy
CPT/HCPCS: 52332; 52352; 76000; 82365; C2617; J0131; J0690; J1100; J1170; J2405; J3010; Q9967

== ENCOUNTER 2024-02-07 09:33 | Emergency (ER) | payer OTHER ==
[~2024-02-07] VITALS: Ht 167.6 cm; Wt 58.3 kg
[~2024-02-07 09:33] MED LIST changes: -ACETAMINOPHEN 1000MG 100ML IV BAG As Ordered ONE; -ACETAMINOPHEN TAB 650MG DOSE (2X325MG) PO PRN; -CEFD1CAP9 PO; -IBUP200C25 PO; -LIDOCAINE 2% 100MG/5ML SDV (FOR ANES.) As Ordered ONE; -LR 1,000 ML IV SCH; -ONDANSETRON 4MG 2ML VIAL As Ordered ONE; -ONDANSETRON 4MG 2ML VIAL IV PRN; -OXYB5TAB14 PO; -fentaNYL 100 MCG/2 ML INJECTION As Ordered ONE; -propofoL 200 MG/20 ML VIAL As Ordered ONE
[2024-02-07] MEDS ORDERED: IBUP200C25 PO (09:59)
[2024-02-07] MEDS: NS 1,000 ML IV SCH (10:23)
[2024-02-07] MEDS: fentaNYL 100 MCG/2 ML INJECTION IV ONE (10:23)
[2024-02-07 10:30] LABS: BASO % 0.4 % (0.0-1.0); EOS # 0.1 10^3/uL (0.0-0.5); EOS % 0.8 % (0.0-3.0); HEMATOCRIT 38.5 % (42.0-52.0); LYMPH # 0.3 10^3/uL (1.5-5.0); LYMPH % 4.4 % (24.0-44.0); MEAN CORPUSCULAR HEMOGLOBIN 30.2 pg (27.0-33.0); MEAN CORPUSCULAR HGB CONC 33.8 g/dl (32.0-36.5); MEAN CORPUSCULAR VOLUME 89.5 fl (80.0-96.0); MONO # 0.6 10^3/uL (0.0-0.8); MONO % 7.4 % (2.0-8.0); NEUTROPHILS # 6.6 10^3/uL (1.5-8.5); NEUTROPHILS % 85.4 % (36.0-66.0); PLATELET COUNT, AUTOMATED 151 10^3/uL (150-450); WHITE BLOOD COUNT 7.7 10^3/uL (4.0-10.0)
[2024-02-07 10:54] LABS: BLOOD UREA NITROGEN 8 MG/DL (9-23); CALCIUM LEVEL 9.1 MG/DL (8.3-10.6); CARBON DIOXIDE LEVEL 31 MMOL/L (20-31); CHLORIDE LEVEL 87 MMOL/L (98-107); CREATININE FOR GFR 0.47 MG/DL (0.70-1.30); GLOMERULAR FILTRATION RATE > 60.0 (>35); GLUCOSE, FASTING 163 MG/DL (74-106); SODIUM LEVEL 125 MMOL/L (136-145)
[2024-02-07] MEDS ORDERED: CEFD1CAP9 PO (12:36)
[2024-02-07] MEDS ORDERED: OXYB5TAB14 PO (12:36)
[2024-02-07] MEDS: oxyBUTYnin 5 MG TAB PO ONE (12:44)
[2024-02-07] MEDS: cefTRIAXone SOD 1 GM in D5W MINI-BAG PLUS 50 ML IV ONE (12:44)
[2024-02-07 13:15] VITALS: BP 165/69; TEMP 98.5; O2SAT 97
== END 2024-02-07 13:37 | disposition home or self-care (01) ==
LOC: M ED 09:33
DX: G89.18 Other acute postprocedural pain (principal); N32.89 Other specified disorders of bladder; Z88.5 Allergy status to narcotic agent; Z79.899 Other long term (current) drug therapy; Z79.51 Long term (current) use of inhaled steroids; Z79.52 Long term (current) use of systemic steroids
CPT/HCPCS: 74018; 76775; 76870; 80048; 81001; 85025; 87086; 93041; 93976; 96361; 96365; 96375; 99285; J0696; J3010

== ENCOUNTER 2024-02-14 06:11 | Inpatient (IN) | payer OTHER ==
[~2024-02-14] VITALS: Ht 167.6 cm; Wt 54.0 kg
[~2024-02-14 06:11] MED LIST changes: +CEFD1CAP9 PO; +IBUP200C25 PO; +OXYB5TAB14 PO
[2024-02-14 06:28] LABS: ABG HCO3 27.5 MMOL/L (22.0-26.0); ABG O2 SATURATION 96.7 % (95.0-99.0); ABG PARTIAL PRESSURE CO2 41.5 mmHg (35.0-45.0); ABG PARTIAL PRESSURE O2 85.7 mmHg (75.0-100.0); ABG STANDARD HCO3 27.2 MMOL/L. (22.0-26.0); ABG TOTAL CO2 28.8 MMOL/L (23.0-31.0); ABG pH (ARTERIAL) 7.439 UNITS (7.350-7.450)
[2024-02-14] MEDS ORDERED: NALOXONE 2MG/2ML SYRINGE IV PRN (06:35)
[2024-02-14] MEDS: CHARCOAL ACTIVATED LIQUID 25GM/120ML BTL PO ONE (06:36)
[2024-02-14] MEDS: NS 1,000 ML IV SCH (06:36)
[2024-02-14 06:42] LABS: BASO % 0.8 % (0.0-1.0); EOS # 0.2 10^3/uL (0.0-0.5); EOS % 4.1 % (0.0-3.0); HEMATOCRIT 38.3 % (42.0-52.0); HEMOGLOBIN 12.9 g/dl (13.5-17.5); LYMPH # 0.6 10^3/uL (1.5-5.0); LYMPH % 16.7 % (24.0-44.0); MEAN CORPUSCULAR HEMOGLOBIN 29.9 pg (27.0-33.0); MEAN CORPUSCULAR HGB CONC 33.7 g/dl (32.0-36.5); MEAN CORPUSCULAR VOLUME 88.9 fl (80.0-96.0); MONO # 0.4 10^3/uL (0.0-0.8); MONO % 9.6 % (2.0-8.0); NEUTROPHILS # 2.4 10^3/uL (1.5-8.5); NEUTROPHILS % 66.3 % (36.0-66.0); PLATELET COUNT, AUTOMATED 137 10^3/uL (150-450); RED BLOOD COUNT 4.31 10^6/uL (4.30-6.10); WHITE BLOOD COUNT 3.7 10^3/uL (4.0-10.0)
[2024-02-14 07:07] LABS: AMPHETAMINES LEVEL URINE NEGATIVE (NEGATIVE); BARBITURATES URINE POSITIVE (NEGATIVE); BENZODIAZEPINES URINE NEGATIVE (NEGATIVE); CANNABINOIDS URINE NEGATIVE (NEGATIVE); COCAINE METABOLITE URINE NEGATIVE (NEGATIVE); METHADONE URINE NEGATIVE (NEGATIVE); OPIATES URINE POSITIVE (NEGATIVE); PHENCYCLIDINE URINE NEGATIVE (NEGATIVE)
[2024-02-14 07:09] LABS: ETHYL ALCOHOL (ETHANOL) < 0.003 % (0.000-0.010)
[2024-02-14 07:10] LABS: SALICYLATE LEVEL < 3.0 MG/DL (<30)
[2024-02-14 07:11] LABS: ALBUMIN 3.7 G/DL (3.2-5.2); ALKALINE PHOSPHATASE 76 U/L (46-116); ALT/SGPT 21 U/L (7.0-40); AST/SGOT 23 U/L (<34); BILIRUBIN,DIRECT 0.2 MG/DL (<0.4); BILIRUBIN,TOTAL 0.4 MG/DL (0.3-1.2); BLOOD UREA NITROGEN 8 MG/DL (9-23); CALCIUM LEVEL 9.1 MG/DL (8.3-10.6); CARBON DIOXIDE LEVEL 31 MMOL/L (20-31); CHLORIDE LEVEL 96 MMOL/L (98-107); CPK CREATINE PHOSPHOKINASE 51 U/L (46-171); CREATININE FOR GFR 0.49 MG/DL (0.70-1.30); GLOMERULAR FILTRATION RATE > 60.0 (>35); GLUCOSE, FASTING 165 MG/DL (74-106); POTASSIUM SERUM 4.2 MMOL/L (3.5-5.1); SODIUM LEVEL 134 MMOL/L (136-145); TOTAL PROTEIN 5.9 G/DL (5.7-8.2)
[2024-02-14 07:13] LABS: THYROID STIMULATING HORMONE 1.582 uIU/ML (0.55-4.78)
[2024-02-14] MEDS: DOCUSATE SODIUM 100MG CAPSULE PO SCH (09:00)
[2024-02-14] MEDS ORDERED: MAALOX 30 ML SUSP *UDC PO PRN (13:15)
[2024-02-14] MEDS ORDERED: MOM 30ML SUSPENSION UDC PO PRN (13:15)
[2024-02-14] MEDS ORDERED: PIOG1TAB36 PO (13:18)
[2024-02-14] MEDS ORDERED: D31000CA4 PO (13:18)
[2024-02-14] MEDS ORDERED: PRIM50TA6 PO (13:18)
[2024-02-14] MEDS ORDERED: POLY17PO18 PO (13:18)
[2024-02-14] MEDS ORDERED: PRED5TA PO (13:18)
[2024-02-14] MEDS ORDERED: CEFD1CAP9 PO (13:18)
[2024-02-14] MEDS ORDERED: HYDR-3713 PO (13:18)
[2024-02-14] MEDS ORDERED: OXYB5TAB14 PO (13:18)
[2024-02-14] MEDS ORDERED: ACET-683 PO (13:22)
[2024-02-14] MEDS ORDERED: OYST250T20 PO (13:22)
[2024-02-14] MEDS ORDERED: DOCU100C16 PO (13:22)
[2024-02-14] MEDS ORDERED: HOME MED LIST COMPLETE! XX SCH (13:25)
[2024-02-14] MEDS ORDERED: ALBUTEROL SULFATE 2.5MG/0.5ML INH NEB SOLN INH PRN (13:40)
[2024-02-14] MEDS ORDERED: DEXTROSE 50% 50ML SYRINGE IV PRN (13:40)
[2024-02-14] MEDS ORDERED: oxyBUTYnin 5 MG TAB PO PRN (13:40)
[2024-02-14] MEDS ORDERED: GLUCAGON INJ 1MG VIAL SC PRN (13:40)
[2024-02-14] MEDS ORDERED: MIRALAX *UNIT DOSE* 17GM PACKET PO PRN (13:40)
[2024-02-14] MEDS ORDERED: GLUCOSE 4 GM CHEW PO PRN (13:40)
[2024-02-14] MEDS: predniSONE 5 MG TAB PO SCH (14:14)
[2024-02-14] MEDS: TAMSULOSIN 0.4 MG CAP PO SCH (14:14)
[2024-02-14 15:07] VITALS: BP 159/72; TEMP 97.3; O2SAT 99
[2024-02-14] MEDS: ISOSORBIDE MON. (IMDUR) 30MG XR TAB PO SCH (15:49)
[2024-02-14] MEDS: OMEPRAZOLE 20MG CAP PO SCH (15:50)
[2024-02-14] MEDS: METOPROLOL TART 25 MG TABLET PO SCH (15:51)
[2024-02-14 15:52] VITALS: BP 159/72; TEMP 98.9; O2SAT 99
[2024-02-14] MEDS: PRIMIDONE 50MG TAB PO SCH (17:00)
[2024-02-14] MEDS: INSULIN LISPRO (NovoLOG) PER UNIT SC SCH ×2 (17:30→20:23)
[2024-02-14 19:58] VITALS: BP 144/73; TEMP 97.9; O2SAT 98
[2024-02-14] MEDS: FERROUS GLUCONATE 324 MG TAB PO SCH (20:23)
[2024-02-14] MEDS: CEFDINIR 300 MG CAP (OMNICEF) PO SCH (20:24)
[2024-02-14 23:37] VITALS: BP 157/72; TEMP 97.2; O2SAT 98
[2024-02-15 03:57] VITALS: BP 141/68; TEMP 97.7; O2SAT 97
[2024-02-15 07:13] LABS: BASO % 0.8 % (0.0-1.0); EOS # 0.1 10^3/uL (0.0-0.5); EOS % 2.8 % (0.0-3.0); HEMATOCRIT 33.9 % (42.0-52.0); HEMOGLOBIN 11.4 g/dl (13.5-17.5); LYMPH # 0.5 10^3/uL (1.5-5.0); LYMPH % 11.8 % (24.0-44.0); MEAN CORPUSCULAR HEMOGLOBIN 30.9 pg (27.0-33.0); MEAN CORPUSCULAR HGB CONC 33.6 g/dl (32.0-36.5); MEAN CORPUSCULAR VOLUME 91.9 fl (80.0-96.0); MONO # 0.4 10^3/uL (0.0-0.8); MONO % 8.8 % (2.0-8.0); NEUTROPHILS % 74.5 % (36.0-66.0); PLATELET COUNT, AUTOMATED 111 10^3/uL (150-450); RED BLOOD COUNT 3.69 10^6/uL (4.30-6.10)
[2024-02-15 07:43] LABS: BLOOD UREA NITROGEN 8 MG/DL (9-23); CALCIUM LEVEL 8.4 MG/DL (8.3-10.6); CARBON DIOXIDE LEVEL 34 MMOL/L (20-31); CHLORIDE LEVEL 99 MMOL/L (98-107); CREATININE FOR GFR 0.52 MG/DL (0.70-1.30); GLOMERULAR FILTRATION RATE > 60.0 (>35); GLUCOSE, FASTING 124 MG/DL (74-106); IRON (FE) 70 UG/DL (65-175); MAGNESIUM LEVEL 1.6 MG/DL (1.8-2.4); PERCENT SATURATION 26.6 % (19.7-50.0); POTASSIUM SERUM 4.2 MMOL/L (3.5-5.1); SODIUM LEVEL 135 MMOL/L (136-145); TOTAL IRON BINDING CAPACITY 263 UG/DL (250-425)
[2024-02-15 09:31] VITALS: BP 168/81; TEMP 97.7; O2SAT 98
[2024-02-15] MEDS: BISACODYL 5MG TAB PO SCH (10:08)
[2024-02-15] MEDS: SENOKOT S TAB PO SCH (10:09)
[2024-02-15] MEDS: MAG SULF 1GM/100ML (MAG RUN) 1 GM in IV 1 EA IV SCH (10:12)
[2024-02-15] MEDS: NS 1,000 ML IV ONE (10:17)
[2024-02-15] MEDS: LIDOCAINE 5% (LIDODERM) PATCH TD SCH (10:37)
[2024-02-15 12:13] VITALS: BP 160/76; TEMP 98.6; O2SAT 97
[2024-02-15 16:40] VITALS: BP 160/74; TEMP 97.8; O2SAT 96
[2024-02-15 19:35] VITALS: BP 160/78; TEMP 97.3; O2SAT 96
[2024-02-15 23:34] VITALS: BP 152/73; TEMP 98; O2SAT 96
[2024-02-16 03:59] VITALS: BP 178/84; TEMP 99.7; O2SAT 97
[2024-02-16 06:26] LABS: BLOOD UREA NITROGEN 8 MG/DL (9-23); CALCIUM LEVEL 7.8 MG/DL (8.3-10.6); CARBON DIOXIDE LEVEL 33 MMOL/L (20-31); CHLORIDE LEVEL 102 MMOL/L (98-107); GLOMERULAR FILTRATION RATE > 60.0 (>35); GLUCOSE, FASTING 108 MG/DL (74-106); MAGNESIUM LEVEL 1.8 MG/DL (1.8-2.4); POTASSIUM SERUM 3.9 MMOL/L (3.5-5.1); SODIUM LEVEL 139 MMOL/L (136-145)
[2024-02-16] MEDS ORDERED: PERCOCET 5MG/325MG TAB PO PRN (07:45)
[2024-02-16 07:55] VITALS: BP 146/84; TEMP 97.2; O2SAT 97
[2024-02-16] MEDS: LACTULOSE 20GM/30ML SYRUP UDC PO SCH (08:26)
[2024-02-16] MEDS: MAGNESIUM CITRATE 300ML BTL PO ONE (08:31)
[2024-02-16] MEDS: BISACODYL 10MG SUPP PR ONE (08:35)
[2024-02-16] MEDS ORDERED: OLODATEROL INH SCH (09:00)
[2024-02-16] MEDS ORDERED: DULoxetine 20MG CAP (CYMBALTA) PO SCH (09:00)
[2024-02-16] MEDS ORDERED: TIOTROPIUM INH SCH (09:00)
[2024-02-16] MEDS: UNRESOLVED PATIENT OWN MED ORDER XX SCH (10:11)
[2024-02-16] MEDS: oxyBUTYnin 5 MG TAB PO STA (11:38)
[2024-02-16] MEDS: DULoxetine 30MG CAPSULE (CYMBALTA) PO SCH (11:38)
[2024-02-16 11:57] VITALS: BP 150/73; TEMP 97.9; O2SAT 98
[2024-02-16 15:39] VITALS: BP 159/76; TEMP 97.7; O2SAT 97
[2024-02-16] MEDS ORDERED: LACTULOSE 20GM/30ML SYRUP UDC PO PRN (16:30)
[2024-02-16 19:44] VITALS: BP 158/88; TEMP 97.3; O2SAT 97
[2024-02-16] MEDS: APIXABAN 2.5 MG TAB (ELIQUIS) PO SCH (20:14)
[2024-02-16 23:46] VITALS: BP 132/72; TEMP 98.6; O2SAT 96
[2024-02-17 04:07] VITALS: BP 152/76; TEMP 97.2; O2SAT 94
[2024-02-17 06:38] LABS: BLOOD UREA NITROGEN 8 MG/DL (9-23); CALCIUM LEVEL 8.1 MG/DL (8.3-10.6); CARBON DIOXIDE LEVEL 31 MMOL/L (20-31); CHLORIDE LEVEL 97 MMOL/L (98-107); CREATININE FOR GFR 0.43 MG/DL (0.70-1.30); GLOMERULAR FILTRATION RATE > 60.0 (>35); GLUCOSE, FASTING 123 MG/DL (74-106); MAGNESIUM LEVEL 1.8 MG/DL (1.8-2.4); POTASSIUM SERUM 4.1 MMOL/L (3.5-5.1); SODIUM LEVEL 133 MMOL/L (136-145)
[2024-02-17 07:49] VITALS: BP 140/67; TEMP 97.6; O2SAT 97
[2024-02-17] MEDS ORDERED: TIOT4MIS3 IH (07:53)
[2024-02-17 08:40] VITALS: BP 140/67
[2024-02-17] MEDS ORDERED: CYMB1CAP5 PO ×2 (09:04→09:10)
[2024-02-17] MEDS ORDERED: AMLO1TAB25 PO (09:04)
[2024-02-17 11:43] VITALS: BP 159/76; TEMP 97.5; O2SAT 97
[2024-02-17] MEDS ORDERED: DULoxetine 30MG CAPSULE (CYMBALTA) PO SCH (21:00)
[2024-02-17] MEDS ORDERED: APIXABAN 2.5 MG TAB (ELIQUIS) PO ONE (21:00)
[2024-02-18] MEDS ORDERED: EDOXABAN 30 MG PO SCH (09:00)
== END 2024-02-17 14:00 | DRG 918 ==
LOC: M ED 06:11 → M ED INP 13:14 → M PCU 14:59
PROVIDERS: ADMIT Student in an Organized Health Care Education/Training Program; ATTEND Student in an Organized Health Care Education/Training Program
DX: T39.1X2A Poisoning by 4-Aminophenol derivatives, intentional self-harm, initial encounter (principal); E87.1 Hypo-osmolality and hyponatremia; D61.818 Other pancytopenia; T14.91XA Suicide attempt, initial encounter; F32.A Depression, unspecified; E11.9 Type 2 diabetes mellitus without complications; J44.9 Chronic obstructive pulmonary disease, unspecified; I10 Essential (primary) hypertension; E78.5 Hyperlipidemia, unspecified; K21.9 Gastro-esophageal reflux disease without esophagitis; I25.10 Atherosclerotic heart disease of native coronary artery without angina pectoris; N48.6 Induration penis plastica; J61 Pneumoconiosis due to asbestos and other mineral fibers; R31.0 Gross hematuria; Z87.891 Personal history of nicotine dependence; K44.9 Diaphragmatic hernia without obstruction or gangrene; K59.00 Constipation, unspecified; K80.20 Calculus of gallbladder without cholecystitis without obstruction; E83.42 Hypomagnesemia; G89.29 Other chronic pain; G47.00 Insomnia, unspecified; R25.1 Tremor, unspecified; Z79.52 Long term (current) use of systemic steroids; Z79.899 Other long term (current) drug therapy; Z88.5 Allergy status to narcotic agent; Z95.5 Presence of coronary angioplasty implant and graft; Z96.0 Presence of urogenital implants

== ENCOUNTER 2024-02-17 09:57 | Inpatient (IN) | payer OTHER ==
[~2024-02-17] VITALS: Ht 167.6 cm; Wt 53.7 kg
[~2024-02-17 09:57] MED LIST changes: +ACET-683 PO; +AMLO1TAB25 PO; +CYMB1CAP5 PO; +D31000CA4 PO; +DOCU100C16 PO; +DOXY-323 PO; -DOXY-443 PO; +OYST250T20 PO; +PIOG1TAB36 PO; +POLY17PO18 PO; +PRED5TA PO; +TIOT4MIS3 IH
[2024-02-17] MEDS ORDERED: ACETAMINOPHEN TAB 650MG DOSE (2X325MG) PO PRN (12:55)
[2024-02-17] MEDS ORDERED: MOM 30ML SUSPENSION UDC PO PRN (12:55)
[2024-02-17] MEDS ORDERED: diphenhydrAMINE 25MG CAP PO PRN (12:55)
[2024-02-17] MEDS ORDERED: traZODone 50 MG TAB PO PRN (12:55)
[2024-02-17] MEDS ORDERED: MIRALAX *UNIT DOSE* 17GM PACKET PO PRN (12:55)
[2024-02-17] MEDS ORDERED: ALBUTEROL 90 MCG/ACT 8GM HFA INHALER INH PRN (12:55)
[2024-02-17] MEDS ORDERED: ACETAMINOPHEN 500 MG TAB PO PRN (12:55)
[2024-02-17] MEDS ORDERED: ALBUTEROL SULFATE 2.5MG/0.5ML INH NEB SOLN INH PRN (12:55)
[2024-02-17] MEDS ORDERED: oxyBUTYnin 5 MG TAB PO PRN (12:55)
[2024-02-17] MEDS ORDERED: MAALOX 30 ML SUSP *UDC PO PRN (12:55)
[2024-02-17] MEDS ORDERED: DEXTROSE 50% 50ML SYRINGE IV PRN (13:55)
[2024-02-17] MEDS ORDERED: GLUCOSE 4 GM CHEW PO PRN (13:55)
[2024-02-17] MEDS ORDERED: GLUCAGON INJ 1MG VIAL SC PRN (13:55)
[2024-02-17] MEDS: METOCLOPRAMIDE 5 MG TAB PO SCH (17:09)
[2024-02-17] MEDS: INSULIN LISPRO (NovoLOG) PER UNIT SC SCH (17:17)
[2024-02-17] MEDS ORDERED: INSULIN LISPRO (NovoLOG) PER UNIT SC SCH ×2 (17:30→21:00)
[2024-02-17 18:34] VITALS: BP 123/69; TEMP 97.2
[2024-02-17 20:46] VITALS: BP 124/64; TEMP 97.4; O2SAT 95
[2024-02-17] MEDS: CEFDINIR 300 MG CAP (OMNICEF) PO SCH (20:53)
[2024-02-17] MEDS: APIXABAN 2.5 MG TAB (ELIQUIS) PO ONE (20:53)
[2024-02-17] MEDS: DULoxetine 30MG CAPSULE (CYMBALTA) PO SCH (20:53)
[2024-02-17] MEDS: FERROUS GLUCONATE 324 MG TAB PO SCH (20:53)
[2024-02-18] MEDS: NITROGLYCERIN 0.4MG SUBL TABLET SL PRN (05:12)
[2024-02-18 05:15] VITALS: BP 174/82; TEMP 97.3; O2SAT 95
[2024-02-18 07:24] LABS: CK-MB VALUE MASS < 1.0 NG/ML (<3.6); CPK CREATINE PHOSPHOKINASE 36 U/L (46-171); MB/CK RELATIVE INDEX 2.77 (< OR =4)
[2024-02-18] MEDS ORDERED: INSULIN LISPRO (NovoLOG) PER UNIT SC SCH ×2 (07:30→12:00)
[2024-02-18 08:07] LABS: ALBUMIN 3.4 G/DL (3.2-5.2); ALKALINE PHOSPHATASE 67 U/L (46-116); ALT/SGPT 16 U/L (7.0-40); AST/SGOT 22 U/L (<34); BILIRUBIN,TOTAL 0.6 MG/DL (0.3-1.2); BLOOD UREA NITROGEN 8 MG/DL (9-23); CALCIUM LEVEL 8.3 MG/DL (8.3-10.6); CARBON DIOXIDE LEVEL 28 MMOL/L (20-31); CHLORIDE LEVEL 94 MMOL/L (98-107); CREATININE FOR GFR 0.45 MG/DL (0.70-1.30); GLOMERULAR FILTRATION RATE > 60.0 (>35); GLUCOSE, FASTING 119 MG/DL (74-106); POTASSIUM SERUM 3.7 MMOL/L (3.5-5.1); SODIUM LEVEL 127 MMOL/L (136-145); TOTAL PROTEIN 5.6 G/DL (5.7-8.2)
[2024-02-18 08:08] LABS: MEAN CORPUSCULAR HEMOGLOBIN 30.4 pg (27.0-33.0); MEAN CORPUSCULAR HGB CONC 34.3 g/dl (32.0-36.5); MEAN CORPUSCULAR VOLUME 88.6 fl (80.0-96.0); PLATELET COUNT, AUTOMATED 121 10^3/uL (150-450); RED BLOOD COUNT 3.95 10^6/uL (4.30-6.10); WHITE BLOOD COUNT 3.3 10^3/uL (4.0-10.0)
[2024-02-18] MEDS: NICOTINE 14 MG/24 HR TRANSDERMAL TD SCH (08:39)
[2024-02-18 08:41] VITALS: BP 134/72
[2024-02-18] MEDS: MONTELUKAST 10 MG TAB PO SCH (08:44)
[2024-02-18] MEDS: TAMSULOSIN 0.4 MG CAP PO SCH (08:44)
[2024-02-18] MEDS: METOPROLOL TART 25 MG TABLET PO SCH (08:45)
[2024-02-18] MEDS: ATORVASTATIN 20 MG TAB PO SCH (08:46)
[2024-02-18] MEDS: predniSONE 5 MG TAB PO SCH (08:47)
[2024-02-18] MEDS: OMEPRAZOLE 20MG CAP PO SCH (08:47)
[2024-02-18] MEDS: PRIMIDONE 50MG TAB PO SCH (08:48)
[2024-02-18] MEDS: DOCUSATE SODIUM 100MG CAPSULE PO SCH (08:48)
[2024-02-18] MEDS: ISOSORBIDE MON. (IMDUR) 30MG XR TAB PO SCH (08:48)
[2024-02-18] MEDS: STIOLTO RESPIMAT INH SCH (08:49)
[2024-02-18] MEDS: IBUPROFEN 400MG TAB PO PRN (12:23)
[2024-02-18 15:50] LABS: OSMOLALITY URINE 544 MOSM/KG (50-1400)
[2024-02-18 16:05] LABS: SODIUM,RANDOM URINE 26 MMOL/L
[2024-02-18 18:51] VITALS: BP 143/74; TEMP 98
[2024-02-18 20:28] VITALS: BP 150/74; TEMP 98.3; O2SAT 96
[2024-02-18] MEDS ORDERED: EDOXABAN 30 MG PO SCH (21:00)
[2024-02-19 06:04] VITALS: BP 154/72; TEMP 98.3; O2SAT 96
[2024-02-19 06:51] LABS: BASO % 0.6 % (0.0-1.0); EOS # 0.1 10^3/uL (0.0-0.5); EOS % 2.2 % (0.0-3.0); HEMATOCRIT 33.5 % (42.0-52.0); HEMOGLOBIN 12.1 g/dl (13.5-17.5); LYMPH # 0.4 10^3/uL (1.5-5.0); LYMPH % 11.7 % (24.0-44.0); MEAN CORPUSCULAR HEMOGLOBIN 30.6 pg (27.0-33.0); MEAN CORPUSCULAR HGB CONC 36.1 g/dl (32.0-36.5); MEAN CORPUSCULAR VOLUME 84.6 fl (80.0-96.0); MONO # 0.4 10^3/uL (0.0-0.8); MONO % 11.7 % (2.0-8.0); NEUTROPHILS # 2.3 10^3/uL (1.5-8.5); NEUTROPHILS % 72.9 % (36.0-66.0); PLATELET COUNT, AUTOMATED 119 10^3/uL (150-450); RED BLOOD COUNT 3.96 10^6/uL (4.30-6.10); WHITE BLOOD COUNT 3.2 10^3/uL (4.0-10.0)
[2024-02-19 07:13] LABS: BLOOD UREA NITROGEN 7 MG/DL (9-23); CALCIUM LEVEL 8.5 MG/DL (8.3-10.6); CARBON DIOXIDE LEVEL 29 MMOL/L (20-31); CHLORIDE LEVEL 92 MMOL/L (98-107); CREATININE FOR GFR 0.44 MG/DL (0.70-1.30); GLOMERULAR FILTRATION RATE > 60.0 (>35); GLUCOSE, FASTING 125 MG/DL (74-106); POTASSIUM SERUM 4.1 MMOL/L (3.5-5.1); SODIUM LEVEL 128 MMOL/L (136-145)
[2024-02-19 09:13] VITALS: BP 161/77
[2024-02-19] MEDS ORDERED: DULO1CAP5 PO (11:39)
[2024-02-20] MEDS ORDERED: MIRT-10 PO (13:05)
== END 2024-02-19 10:05 | DRG 882 ==
LOC: M PSY 14:21
PROVIDERS: ADMIT Student in an Organized Health Care Education/Training Program; ATTEND Student in an Organized Health Care Education/Training Program
DX: F43.23 Adjustment disorder with mixed anxiety and depressed mood (principal); E87.1 Hypo-osmolality and hyponatremia; E11.9 Type 2 diabetes mellitus without complications; J44.9 Chronic obstructive pulmonary disease, unspecified; D69.6 Thrombocytopenia, unspecified; D64.9 Anemia, unspecified; R31.0 Gross hematuria; I25.119 Atherosclerotic heart disease of native coronary artery with unspecified angina pectoris; F32.A Depression, unspecified; I10 Essential (primary) hypertension; E78.5 Hyperlipidemia, unspecified; K21.9 Gastro-esophageal reflux disease without esophagitis; J61 Pneumoconiosis due to asbestos and other mineral fibers; N48.6 Induration penis plastica; Z87.891 Personal history of nicotine dependence; Z79.52 Long term (current) use of systemic steroids; Z79.899 Other long term (current) drug therapy; Z88.5 Allergy status to narcotic agent; Z91.51 Personal history of suicidal behavior; Z95.5 Presence of coronary angioplasty implant and graft; Z85.46 Personal history of malignant neoplasm of prostate

== ENCOUNTER 2024-02-19 08:11 | Inpatient (IN) | payer OTHER ==
[~2024-02-19] VITALS: Ht 167.6 cm; Wt 53.2 kg
[2024-02-19] MEDS ORDERED: ACETAMINOPHEN TAB 650MG DOSE (2X325MG) PO PRN (08:25)
[2024-02-19] MEDS ORDERED: NITROGLYCERIN 0.4MG SUBL TABLET SL PRN (08:35)
[2024-02-19 10:10] VITALS: BP 150/72; TEMP 97.5; O2SAT 92
[2024-02-19] MEDS ORDERED: DULO1CAP5 PO (11:39)
[2024-02-19] MEDS ORDERED: HOME MED LIST COMPLETE! XX SCH (11:45)
[2024-02-19] MEDS: NS 1,000 ML IV SCH (11:56)
[2024-02-19] MEDS: METOCLOPRAMIDE 5 MG TAB PO SCH (12:00)
[2024-02-19] MEDS ORDERED: ALBUTEROL SULFATE 2.5MG/0.5ML INH NEB SOLN INH PRN (12:35)
[2024-02-19] MEDS ORDERED: oxyBUTYnin 5 MG TAB PO PRN (12:35)
[2024-02-19] MEDS ORDERED: MIRALAX *UNIT DOSE* 17GM PACKET PO PRN (12:35)
[2024-02-19] MEDS ORDERED: ALBUTEROL 90 MCG/ACT 8GM HFA INHALER INH PRN (12:35)
[2024-02-19 14:00] VITALS: BP 163/94; TEMP 97.5; O2SAT 98
[2024-02-19] MEDS: MULTIVITAMINS/MINERALS THERAP 1 TAB PO SCH (14:16)
[2024-02-19] MEDS: FERROUS GLUCONATE 324 MG TAB PO SCH (20:06)
[2024-02-19] MEDS: MIRTAZAPINE 7.5MG PER 1/2 TABLET PO SCH (21:18)
[2024-02-19 21:40] VITALS: BP 150/89; TEMP 97.5; O2SAT 97
[2024-02-20 05:13] VITALS: BP 139/82; TEMP 97.5; O2SAT 97
[2024-02-20 07:14] LABS: HEMATOCRIT 35.6 % (42.0-52.0); HEMOGLOBIN 12.4 g/dl (13.5-17.5); MEAN CORPUSCULAR HEMOGLOBIN 30.3 pg (27.0-33.0); MEAN CORPUSCULAR HGB CONC 34.8 g/dl (32.0-36.5); PLATELET COUNT, AUTOMATED 152 10^3/uL (150-450); RED BLOOD COUNT 4.09 10^6/uL (4.30-6.10); WHITE BLOOD COUNT 3.9 10^3/uL (4.0-10.0)
[2024-02-20] MEDS: STIOLTO RESPIMAT INH SCH (07:37)
[2024-02-20 07:38] LABS: ALBUMIN 3.4 G/DL (3.2-5.2); ALKALINE PHOSPHATASE 67 U/L (46-116); ALT/SGPT 19 U/L (7.0-40); AST/SGOT 21 U/L (<34); BILIRUBIN,TOTAL 0.5 MG/DL (0.3-1.2); BLOOD UREA NITROGEN 8 MG/DL (9-23); CALCIUM LEVEL 8.4 MG/DL (8.3-10.6); CARBON DIOXIDE LEVEL 31 MMOL/L (20-31); CHLORIDE LEVEL 99 MMOL/L (98-107); CREATININE FOR GFR 0.47 MG/DL (0.70-1.30); GLOMERULAR FILTRATION RATE > 60.0 (>35); GLUCOSE, FASTING 106 MG/DL (74-106); POTASSIUM SERUM 3.9 MMOL/L (3.5-5.1); SODIUM LEVEL 136 MMOL/L (136-145); TOTAL PROTEIN 5.4 G/DL (5.7-8.2)
[2024-02-20 08:12] LABS: INR 1.04; PARTIAL THROMBOPLASTIN TIME 27.1 SECONDS (24.8-34.2); PROTHROMBIN TIME 13.3 SECONDS (12.5-14.5)
[2024-02-20] MEDS: predniSONE 5 MG TAB PO SCH (08:41)
[2024-02-20] MEDS: TAMSULOSIN 0.4 MG CAP PO SCH (08:41)
[2024-02-20] MEDS: ATORVASTATIN 20 MG TAB PO SCH (08:41)
[2024-02-20 08:42] VITALS: BP 142/84
[2024-02-20] MEDS: MONTELUKAST 10 MG TAB PO SCH (08:42)
[2024-02-20] MEDS: OMEPRAZOLE 20MG CAP PO SCH (08:42)
[2024-02-20] MEDS: DOCUSATE SODIUM 100MG CAPSULE PO SCH (08:42)
[2024-02-20] MEDS: ISOSORBIDE MON. (IMDUR) 30MG XR TAB PO SCH (08:43)
[2024-02-20] MEDS: METOPROLOL TART 25 MG TABLET PO SCH (08:43)
[2024-02-20] MEDS: PRIMIDONE 50MG TAB PO SCH (08:43)
[2024-02-20 08:55] LABS: OSMOLALITY URINE 381 MOSM/KG (50-1400)
[2024-02-20 09:22] LABS: SODIUM,RANDOM URINE 128 MMOL/L
[2024-02-20] MEDS ORDERED: MIRT-10 PO (13:05)
[2024-02-20 14:00] VITALS: BP 104/59; TEMP 97.3; O2SAT 96
== END 2024-02-20 15:41 | disposition home or self-care (01) | DRG 729 ==
LOC: M MSPAV 10:15
PROVIDERS: ADMIT Internal Medicine; ATTEND Internal Medicine
DX: N50.819 Testicular pain, unspecified (principal); N99.820 Postprocedural hemorrhage of a genitourinary system organ or structure following a genitourinary system procedure; E87.1 Hypo-osmolality and hyponatremia; D68.32 Hemorrhagic disorder due to extrinsic circulating anticoagulants; K59.00 Constipation, unspecified; I48.91 Unspecified atrial fibrillation; D64.9 Anemia, unspecified; F32.A Depression, unspecified; E11.9 Type 2 diabetes mellitus without complications; J44.9 Chronic obstructive pulmonary disease, unspecified; J61 Pneumoconiosis due to asbestos and other mineral fibers; D69.6 Thrombocytopenia, unspecified; F43.20 Adjustment disorder, unspecified; R31.9 Hematuria, unspecified; I10 Essential (primary) hypertension; E78.5 Hyperlipidemia, unspecified; K21.9 Gastro-esophageal reflux disease without esophagitis; N48.6 Induration penis plastica; I25.10 Atherosclerotic heart disease of native coronary artery without angina pectoris; Z95.5 Presence of coronary angioplasty implant and graft; Z85.46 Personal history of malignant neoplasm of prostate; Z87.891 Personal history of nicotine dependence; Z79.52 Long term (current) use of systemic steroids; Z79.84 Long term (current) use of oral hypoglycemic drugs; Z79.899 Other long term (current) drug therapy; Z88.5 Allergy status to narcotic agent; Z79.01 Long term (current) use of anticoagulants; Z91.51 Personal history of suicidal behavior

== ENCOUNTER → 2024-03-29 | Outpatient (REF) | payer OTHER ==
[~2024-03-29] MED LIST changes: +DULO1CAP5 PO; +MIRT-10 PO
[2024-03-29 18:37] LABS: AMORPHOUS SEDIMENT SMALL (NEGATIVE); APPEARANCE, URINE HAZY (CLEAR); BACTERIA, URINE AUTO NEGATIVE (NEGATIVE); BILIRUBIN, URINE AUTO NEGATIVE (NEGATIVE); BLOOD, URINE BLOOD NEGATIVE (NEGATIVE); CALCIUM OXALATE CRYSTALS SMALL; COLOR, URINE AMBER (YELLOW); GLUCOSE, URINE (UA) AUTO NEGATIVE (NEGATIVE); KETONE, URINE AUTO NEGATIVE (NEGATIVE); LEUKOCYTE ESTERASE, URINE AUTO TRACE (NEGATIVE); MUCUS, URINE SMALL (NEGATIVE); NITRITE, URINE AUTO POSITIVE (NEGATIVE); PROTEIN, URINE AUTO NEGATIVE (NEGATIVE); RBC, URINE AUTO 2 /HPF (0-3); SQUAMOUS EPITHELIAL CELL UR AU 0 /HPF (0-6); WBC, URINE AUTO 2 /HPF (0-3)
== END ==
LOC: M SMT 16:56
PROVIDERS: ATTEND Urology
DX: N50.82 Scrotal pain (principal)

== ENCOUNTER → 2024-04-21 | Outpatient (REF) | payer OTHER ==
[2024-04-21 18:01] LABS: APPEARANCE, URINE CLEAR (CLEAR); BACTERIA, URINE AUTO NEGATIVE (NEGATIVE); BILIRUBIN, URINE AUTO NEGATIVE (NEGATIVE); BLOOD, URINE BLOOD NEGATIVE (NEGATIVE); CALCIUM OXALATE CRYSTALS SMALL; COLOR, URINE YELLOW (YELLOW); GLUCOSE, URINE (UA) AUTO NEGATIVE (NEGATIVE); KETONE, URINE AUTO NEGATIVE (NEGATIVE); LEUKOCYTE ESTERASE, URINE AUTO TRACE (NEGATIVE); MUCUS, URINE SMALL (NEGATIVE); NITRITE, URINE AUTO NEGATIVE (NEGATIVE); PROTEIN, URINE AUTO NEGATIVE (NEGATIVE); RBC, URINE AUTO 0 /HPF (0-3); SPECIFIC GRAVITY URINE AUTO 1.009 (1.002-1.035); SQUAMOUS EPITHELIAL CELL UR AU 0 /HPF (0-6); UROBILINOGEN, URINE AUTO 0.2 mg/dL (0.0-2.0); WBC, URINE AUTO 3 /HPF (0-3)
== END ==
LOC: M SMT 17:21
PROVIDERS: ATTEND Urology
DX: N50.812 Left testicular pain (principal)

== ENCOUNTER 2024-05-28 10:28 | Emergency (ER) | payer OTHER ==
[~2024-05-28] VITALS: Ht 170.2 cm; Wt 55.3 kg
[2024-05-28] MEDS ORDERED: PHEN-501 PO (10:48)
[2024-05-28 11:54] LABS: VENOUS BASE EXCESS 3.6 (-2.0-2.0); VENOUS HCO3 29.8 MMOL/L (23.0-27.0); VENOUS O2 SATURATION 81.7 % (60.0-80.0); VENOUS PARTIAL PRESSURE O2 47.5 mmHg (30.0-50.0); VENOUS PH 7.376 UNITS (7.330-7.430); VENOUS STANDARD HCO3 27.3 MMOL/L; VENOUS TOTAL CO2 31.4 MMOL/L (24.0-28.0)
[2024-05-28 12:03] LABS: BASO % 0.5 % (0.0-1.0); EOS % 0.7 % (0.0-3.0); HEMATOCRIT 36.1 % (42.0-52.0); LYMPH # 0.4 10^3/uL (1.5-5.0); LYMPH % 8.9 % (24.0-44.0); MEAN CORPUSCULAR HEMOGLOBIN 29.7 pg (27.0-33.0); MEAN CORPUSCULAR HGB CONC 33.2 g/dl (32.0-36.5); MEAN CORPUSCULAR VOLUME 89.4 fl (80.0-96.0); MONO # 0.4 10^3/uL (0.0-0.8); MONO % 9.2 % (2.0-8.0); NEUTROPHILS # 3.4 10^3/uL (1.5-8.5); NEUTROPHILS % 79.8 % (36.0-66.0); PLATELET COUNT, AUTOMATED 107 10^3/uL (150-450); RED BLOOD COUNT 4.04 10^6/uL (4.30-6.10); WHITE BLOOD COUNT 4.3 10^3/uL (4.0-10.0)
[2024-05-28] MEDS: methylPREDNISolone 125MG 2ML VIAL IV ONE (12:05)
[2024-05-28] MEDS: COMBIVENT RESPIMAT 100-20MCG INHALER 4GM INH SCH (12:22)
[2024-05-28 12:24] LABS: ALBUMIN 3.6 G/DL (3.2-5.2); ALKALINE PHOSPHATASE 76 U/L (46-116); ALT/SGPT 18 U/L (7.0-40); AST/SGOT 24 U/L (<34); BILIRUBIN,DIRECT 0.1 MG/DL (<0.4); BILIRUBIN,TOTAL 0.5 MG/DL (0.3-1.2); BLOOD UREA NITROGEN 7 MG/DL (9-23); CALCIUM LEVEL 8.6 MG/DL (8.3-10.6); CARBON DIOXIDE LEVEL 30 MMOL/L (20-31); CHLORIDE LEVEL 102 MMOL/L (98-107); GLOMERULAR FILTRATION RATE > 60.0 (>35); GLUCOSE, FASTING 144 MG/DL (74-106); POTASSIUM SERUM 4.5 MMOL/L (3.5-5.1); SODIUM LEVEL 135 MMOL/L (136-145)
[2024-05-28] MEDS ORDERED: ISOVUE-370 76% 100ML VIAL As Ordered ONE (13:20)
[2024-05-28] MEDS ORDERED: DOXY100C82 PO (14:58)
[2024-05-28 15:00] VITALS: BP 171/77; TEMP 96.6; O2SAT 98
== END 2024-05-28 15:15 | disposition home or self-care (01) ==
LOC: M ED 10:28
DX: J44.1 Chronic obstructive pulmonary disease with (acute) exacerbation (principal); J20.9 Acute bronchitis, unspecified; I48.91 Unspecified atrial fibrillation; E11.9 Type 2 diabetes mellitus without complications; I10 Essential (primary) hypertension; E78.5 Hyperlipidemia, unspecified; Z85.46 Personal history of malignant neoplasm of prostate; Z87.891 Personal history of nicotine dependence
CPT/HCPCS: 71046; 71275; 80048; 80076; 82803; 83605; 83880; 85025; 87040; 87486; 87581; 87633; 87798; 93005; 94640; 96374; 99284; J2919; Q9967

== ENCOUNTER → 2024-07-01 | Outpatient (REF) | payer OTHER ==
[~2024-07-01] MED LIST changes: +DOXY100C82 PO; +PHEN-501 PO
[2024-07-01 14:20] LABS: APPEARANCE, URINE HAZY (CLEAR); BACTERIA, URINE AUTO NEGATIVE (NEGATIVE); BILIRUBIN, URINE AUTO NEGATIVE (NEGATIVE); BLOOD, URINE BLOOD NEGATIVE (NEGATIVE); CALCIUM OXALATE CRYSTALS MODERATE; COLOR, URINE AMBER (YELLOW); GLUCOSE, URINE (UA) AUTO NEGATIVE (NEGATIVE); KETONE, URINE AUTO 1+ mg/dL (NEGATIVE); LEUKOCYTE ESTERASE, URINE AUTO TRACE (NEGATIVE); MUCUS, URINE LARGE (NEGATIVE); NITRITE, URINE AUTO NEGATIVE (NEGATIVE); PROTEIN, URINE AUTO 1+ mg/dL (NEGATIVE); RBC, URINE AUTO 2 /HPF (0-3); SPECIFIC GRAVITY URINE AUTO 1.023 (1.002-1.035); SQUAMOUS EPITHELIAL CELL UR AU 0 /HPF (0-6); WBC, URINE AUTO 13 /HPF (0-3)
== END ==
LOC: M SMT 12:45
PROVIDERS: ATTEND Nurse Practitioner Family
DX: R30.0 Dysuria (principal)

== ENCOUNTER → 2024-07-12 | Outpatient (CLI) | payer OTHER | LOC: M WUC 13:35 | PROVIDERS: ATTEND Nurse Practitioner Family | DX: Z85.46 Personal history of malignant neoplasm of prostate (principal); Z12.5 Encounter for screening for malignant neoplasm of prostate | CPT/HCPCS: 36415; G0103 ==

== ENCOUNTER → 2024-08-02 | Outpatient (CLI) | payer OTHER ==
[~2024-08-02] MED LIST changes: -DOXY-323 PO; +DOXY-441 PO; +GABA-1172 PO; -GABA-282 PO; -SIME180C25 PO; +SIME1CAP4 PO
== END ==
LOC: M RAD 09:01
PROVIDERS: ATTEND Nurse Practitioner Family
DX: N20.0 Calculus of kidney (principal); N32.89 Other specified disorders of bladder; K80.20 Calculus of gallbladder without cholecystitis without obstruction; K59.00 Constipation, unspecified; K44.9 Diaphragmatic hernia without obstruction or gangrene; K22.89 Other specified disease of esophagus

== ENCOUNTER → 2024-10-04 | Outpatient (REF) | payer OTHER ==
[~2024-10-04] MED LIST changes: +BUDE180A2 INH; -BUDE180INH INH
== END ==
LOC: M SMT 12:42
PROVIDERS: ATTEND Urology
DX: N21.0 Calculus in bladder (principal)

== ENCOUNTER 2024-11-03 09:35 | Observation (INO) | payer OTHER, MEDICARE ==
[~2024-11-03] VITALS: Ht 167.6 cm; Wt 54.6 kg
[~2024-11-03 09:35] MED LIST changes: -ISOS20TA53 PO; +ISOS20TA72 PO
[2024-11-03 11:07] LABS: BASO % 0.7 % (0.0-1.0); EOS % 0.5 % (0.0-3.0); HEMATOCRIT 34.6 % (42.0-52.0); HEMOGLOBIN 11.4 g/dl (13.5-17.5); LYMPH # 0.2 10^3/uL (1.5-5.0); LYMPH % 4.6 % (24.0-44.0); MEAN CORPUSCULAR HEMOGLOBIN 29.5 pg (27.0-33.0); MEAN CORPUSCULAR HGB CONC 32.9 g/dl (32.0-36.5); MEAN CORPUSCULAR VOLUME 89.4 fl (80.0-96.0); MONO # 0.4 10^3/uL (0.0-0.8); MONO % 9.5 % (2.0-8.0); NEUTROPHILS # 3.6 10^3/uL (1.5-8.5); NEUTROPHILS % 83.3 % (36.0-66.0); PLATELET COUNT, AUTOMATED 137 10^3/uL (150-450); RED BLOOD COUNT 3.87 10^6/uL (4.30-6.10); WHITE BLOOD COUNT 4.3 10^3/uL (4.0-10.0)
[2024-11-03 12:08] LABS: KETONE, URINE AUTO RFX 1+ mg/dL (NEGATIVE); LEUKOCYTE ESTERASE UR AUTO RFX NEGATIVE (NEGATIVE); MUCUS, URINE RFX SMALL (NEGATIVE); NITRITE, URINE AUTO RFX NEGATIVE (NEGATIVE); RBC, URINE AUTO RFX 2 /HPF (0-3); SQUAM EPITHELIAL CELL UR AURFX 0 /HPF (0-6); WBC, URINE AUTO RFX 0 /HPF (0-3)
[2024-11-03] MEDS: NS (Normal Saline) 0.9% 1,000 ML IV ONE (13:11)
[2024-11-03] MEDS ORDERED: POTA-149 PO (17:23)
[2024-11-03] MEDS ORDERED: XALA0.007 OU (17:23)
[2024-11-03] MEDS ORDERED: ISOVUE-370 76% 100ML VIAL As Ordered ONE (17:24)
[2024-11-03] MEDS ORDERED: HOME MED LIST COMPLETE! XX SCH (17:25)
[2024-11-03] MEDS ORDERED: GLUCAGON INJ 1MG VIAL SC PRN (17:30)
[2024-11-03] MEDS ORDERED: IPRATROPIUM 0.5MG/ALBUTEROL 2.5MG INH SOL UD 3ML (DUONEB) NEB PRN (17:30)
[2024-11-03] MEDS ORDERED: GLUCOSE 4 GM CHEW PO PRN (17:30)
[2024-11-03] MEDS ORDERED: DEXTROSE 50% 50ML SYRINGE IV PRN (17:30)
[2024-11-03] MEDS: **hydrALAZINE HCL** 25 MG TAB PO PRN (18:11)
[2024-11-03] MEDS: INSULIN LISPRO (NovoLOG) PER UNIT SC SCH ×2 (19:31→21:00)
[2024-11-03] MEDS: METOCLOPRAMIDE 5 MG TAB PO SCH (19:37)
[2024-11-03] MEDS: FORMOTEROL FUMARATE 20 MCG/2 ML INHALATION SOLUTION (PERFOROMIST) INH SCH (20:00)
[2024-11-03 20:06] LABS: THYROID STIMULATING HORMONE 1.686 uIU/ML (0.55-4.78)
[2024-11-03 20:38] LABS: INR 1.07; PARTIAL THROMBOPLASTIN TIME 32.7 SECONDS (24.8-34.2); PROTHROMBIN TIME 14.2 SECONDS (12.5-14.5)
[2024-11-03] MEDS: ATORVASTATIN 20 MG TAB PO SCH (21:01)
[2024-11-03] MEDS: SUCRALFATE SUSP 1GM/10ML UD PO SCH (21:01)
[2024-11-03] MEDS: PRIMIDONE 50MG TAB PO SCH (21:02)
[2024-11-03] MEDS: METOPROLOL TART 12.5 MG PER 1/2 TAB PO SCH (21:02)
[2024-11-03 22:08] LABS: ALBUMIN 3.2 G/DL (3.2-5.2); ALKALINE PHOSPHATASE 109 U/L (40-129); ALT/SGPT 22 U/L (7.0-40); AST/SGOT 30 U/L (<34); BILIRUBIN,TOTAL 0.5 MG/DL (0.3-1.2); BLOOD UREA NITROGEN 9 MG/DL (9-23); CALCIUM LEVEL 8.6 MG/DL (8.3-10.6); CARBON DIOXIDE LEVEL 30 MMOL/L (20-31); CHLORIDE LEVEL 98 MMOL/L (98-107); CREATININE FOR GFR 0.44 MG/DL (0.70-1.30); GLOMERULAR FILTRATION RATE > 60.0 (>35); GLUCOSE, FASTING 162 MG/DL (74-106); POTASSIUM SERUM 4.2 MMOL/L (3.5-5.1); SODIUM LEVEL 135 MMOL/L (136-145); TOTAL PROTEIN 5.9 G/DL (5.7-8.2)
[2024-11-03] MEDS ORDERED: BISACODYL 10MG SUPP PR PRN (22:45)
[2024-11-04 07:58] LABS: HEMATOCRIT 35.5 % (42.0-52.0); HEMOGLOBIN 11.9 g/dl (13.5-17.5); MEAN CORPUSCULAR HEMOGLOBIN 29.9 pg (27.0-33.0); MEAN CORPUSCULAR HGB CONC 33.5 g/dl (32.0-36.5); MEAN CORPUSCULAR VOLUME 89.2 fl (80.0-96.0); PLATELET COUNT, AUTOMATED 138 10^3/uL (150-450); RED BLOOD COUNT 3.98 10^6/uL (4.30-6.10); WHITE BLOOD COUNT 4.2 10^3/uL (4.0-10.0)
[2024-11-04 08:47] LABS: BLOOD UREA NITROGEN 8 MG/DL (9-23); CARBON DIOXIDE LEVEL 32 MMOL/L (20-31); CHLORIDE LEVEL 99 MMOL/L (98-107); CREATININE FOR GFR 0.42 MG/DL (0.70-1.30); GLOMERULAR FILTRATION RATE > 60.0 (>35); GLUCOSE, FASTING 138 MG/DL (74-106); POTASSIUM SERUM 3.9 MMOL/L (3.5-5.1); SODIUM LEVEL 137 MMOL/L (136-145)
[2024-11-04] MEDS: TAMSULOSIN 0.4 MG CAP PO SCH (08:59)
[2024-11-04] MEDS: MIRALAX *UNIT DOSE* 17GM PACKET PO SCH (09:00)
[2024-11-04] MEDS: UNRESOLVED PATIENT OWN MED ORDER XX SCH (09:00)
[2024-11-04] MEDS: PANTOPRAZOLE 40MG VIAL IV SCH (09:00)
[2024-11-04] MEDS: ACETAMINOPHEN 500 MG TAB PO PRN (09:00)
[2024-11-04] MEDS: DOCUSATE SODIUM 100MG CAPSULE PO SCH (09:00)
[2024-11-04] MEDS: ISOSORBIDE MON. (IMDUR) 30MG XR TAB PO SCH (09:09)
[2024-11-04] MEDS: predniSONE 5 MG TAB PO SCH (09:10)
[2024-11-04] MEDS: TIOTROPIUM INHALER/CAPSULE (SPIRIVA) INH SCH (09:31)
[2024-11-04] MEDS: FERROUS GLUCONATE 324 MG TAB PO SCH (09:43)
[2024-11-04 09:48] LABS: SODIUM,RANDOM URINE 64 MMOL/L
[2024-11-04 10:11] LABS: OSMOLALITY URINE 381 MOSM/KG (50-1400)
[2024-11-04 12:00] VITALS: BP 157/71; TEMP 98.2; O2SAT 97
[2024-11-04] MEDS: SENOKOT S TAB PO SCH (12:08)
[2024-11-04] MEDS: BISACODYL 10MG SUPP PR ONE (12:08)
[2024-11-04] MEDS: ENOXAPARIN 60MG/0.6ML SYRINGE (J1650 PER 10MG) SC SCH (12:26)
[2024-11-04 16:02] VITALS: BP 115/62; TEMP 97.7; O2SAT 98
[2024-11-04 20:08] VITALS: BP 119/64; TEMP 97.3; O2SAT 99
[2024-11-04] MEDS ORDERED: SAVAYSA 30 MG PO SCH (21:00)
[2024-11-04] MEDS: METOPROLOL TART 25 MG TABLET PO SCH (21:41)
[2024-11-05 04:15] VITALS: BP 136/69; TEMP 98.2; O2SAT 97
[2024-11-05 08:09] VITALS: BP 136/71
[2024-11-05] MEDS ORDERED: COLA100C5 PO (10:06)
[2024-11-05] MEDS ORDERED: TOPR25TA PO (10:06)
[2024-11-05] MEDS ORDERED: CARA1TAB6 PO (10:06)
[2024-11-05] MEDS ORDERED: MIRT1TAB PO (10:06)
[2024-11-05] MEDS ORDERED: MIRA3350 PO (10:06)
[2024-11-05 11:50] VITALS: BP 151/77; TEMP 97.5; O2SAT 99
== END 2024-11-05 11:56 | disposition home health service (06) ==
LOC: M ED 09:35 → M ED INP 09:36 → M MSPAV 11-04 15:52
PROVIDERS: ADMIT Internal Medicine; ATTEND Internal Medicine
DX: R53.1 Weakness (principal); R26.81 Unsteadiness on feet; R63.4 Abnormal weight loss; R53.83 Other fatigue; R47.89 Other speech disturbances; Z87.440 Personal history of urinary (tract) infections; R30.0 Dysuria; G31.1 Senile degeneration of brain, not elsewhere classified; I67.82 Cerebral ischemia; T43.225A Adverse effect of selective serotonin reuptake inhibitors, initial encounter; R05.9 Cough, unspecified; E46 Unspecified protein-calorie malnutrition; F32.9 Major depressive disorder, single episode, unspecified; J44.9 Chronic obstructive pulmonary disease, unspecified; J61 Pneumoconiosis due to asbestos and other mineral fibers; R91.8 Other nonspecific abnormal finding of lung field; J18.2 Hypostatic pneumonia, unspecified organism; E87.1 Hypo-osmolality and hyponatremia; K21.00 Gastro-esophageal reflux disease with esophagitis, without bleeding; Z90.49 Acquired absence of other specified parts of digestive tract; I48.91 Unspecified atrial fibrillation; I10 Essential (primary) hypertension; E11.9 Type 2 diabetes mellitus without complications; I25.10 Atherosclerotic heart disease of native coronary artery without angina pectoris; Z95.1 Presence of aortocoronary bypass graft; Z87.442 Personal history of urinary calculi; Z91.51 Personal history of suicidal behavior; Z85.46 Personal history of malignant neoplasm of prostate; Z98.890 Other specified postprocedural states; N21.0 Calculus in bladder; G25.0 Essential tremor; K59.00 Constipation, unspecified; Z80.9 Family history of malignant neoplasm, unspecified; Z88.5 Allergy status to narcotic agent; Z79.899 Other long term (current) drug therapy; Z79.52 Long term (current) use of systemic steroids; Z79.01 Long term (current) use of anticoagulants
CPT/HCPCS: 36415; 70450; 70551; 71045; 71260; 74177; 80047; 80048; 80053; 81001; 82607; 83880; 83930; 83935; 84300; 84443; 85025; 85027; 85610; 85730; 87086; 87486; 87581; 87633; 87798; 92610; 93005; 94640; 96374; 97116; 97161; 97165; 97530; 99285; G0378; J1650; J1815; J2470; J7512; J7606; Q9967

== ENCOUNTER → 2024-12-28 | Outpatient (CLI) | payer OTHER, MEDICARE ==
[~2024-12-28] MED LIST changes: +CARA1TAB6 PO; +COLA100C5 PO; +MIRT1TAB PO; +POTA-149 PO; +TOPR25TA PO; +XALA0.007 OU
== END ==
LOC: M PLARAD 14:50
PROVIDERS: ATTEND Internal Medicine
DX: R91.8 Other nonspecific abnormal finding of lung field (principal)
CPT/HCPCS: 78816; A9552

== ENCOUNTER → 2025-02-02 | Outpatient (REF) | payer MEDICARE, OTHER ==
[~2025-02-02] MED LIST changes: +DOXY-442 PO; -DOXY100C82 PO
[2025-02-02 13:53] LABS: AMORPHOUS SEDIMENT SMALL (NEGATIVE); APPEARANCE, URINE CLOUDY (CLEAR); BACTERIA, URINE AUTO 1+ (NEGATIVE); BILIRUBIN, URINE AUTO NEGATIVE (NEGATIVE); BLOOD, URINE BLOOD NEGATIVE (NEGATIVE); COLOR, URINE YELLOW (YELLOW); GLUCOSE, URINE (UA) AUTO NEGATIVE (NEGATIVE); KETONE, URINE AUTO NEGATIVE (NEGATIVE); LEUKOCYTE ESTERASE, URINE AUTO NEGATIVE (NEGATIVE); NITRITE, URINE AUTO NEGATIVE (NEGATIVE); PROTEIN, URINE AUTO NEGATIVE (NEGATIVE); RBC, URINE AUTO 1 /HPF (0-3); SPECIFIC GRAVITY URINE AUTO 1.011 (1.002-1.035); SQUAMOUS EPITHELIAL CELL UR AU 0 /HPF (0-6); UROBILINOGEN, URINE AUTO 0.2 mg/dL (0.0-2.0); WBC, URINE AUTO 3 /HPF (0-3)
== END ==
LOC: M SMT 13:01
PROVIDERS: ATTEND Nurse Practitioner Family
DX: R30.0 Dysuria (principal)

== ENCOUNTER → 2025-02-09 | Outpatient (CLI) | payer OTHER ==
[~2025-02-09] MED LIST changes: -FLOM0.4C39 PO; +MAG30ORA18 PO; -MYLASSUD PO; +TAMS-18 PO
== END ==
LOC: M WUC 08:05
PROVIDERS: ATTEND Nurse Practitioner Family
DX: N20.0 Calculus of kidney (principal)

== ENCOUNTER → 2025-02-14 | Outpatient (CLI) | payer MEDICARE, OTHER ==
[~2025-02-14] MED LIST changes: +BUPR-766 PO; +META28.32 PO; +MYRB50TA PO
[2025-02-14 12:17] LABS: PLATELET COUNT, AUTOMATED 115 10^3/uL (150-450)
[2025-02-14 12:31] LABS: INR 1.11; PARTIAL THROMBOPLASTIN TIME 31.5 SECONDS (24.8-34.2); PROTHROMBIN TIME 14.6 SECONDS (12.5-14.5)
== END ==
LOC: M LAB 11:49
PROVIDERS: ATTEND Internal Medicine Critical Care Medicine
DX: R91.8 Other nonspecific abnormal finding of lung field (principal); Z79.01 Long term (current) use of anticoagulants

== ENCOUNTER 2025-02-19 08:52 | Emergency (ER) | payer OTHER, MEDICARE ==
[~2025-02-19] VITALS: Ht 167.6 cm; Wt 55.5 kg
[~2025-02-19 08:52] MED LIST changes: -TIOT4MIS3 IH; +TIOT4MIS3 INH
[2025-02-19] MEDS: IPRATROPIUM 0.5MG/ALBUTEROL 2.5MG INH SOL UD 3ML NEB ONE (09:37)
[2025-02-19] MEDS: ALBUTEROL SULFATE 2.5MG/0.5ML INH CONCENTRATE NEB SOLN INH ONE (09:37)
[2025-02-19 09:38] LABS: VENOUS BASE EXCESS 2.1 (-2.0-2.0); VENOUS O2 SATURATION 79.7 % (60.0-80.0); VENOUS PARTIAL PRESSURE CO2 55.2 mmHg (38.0-50.0); VENOUS PARTIAL PRESSURE O2 46.2 mmHg (30.0-50.0); VENOUS PH 7.338 UNITS (7.330-7.430); VENOUS STANDARD HCO3 25.9 MMOL/L; VENOUS TOTAL CO2 30.7 MMOL/L (24.0-28.0)
[2025-02-19 09:43] LABS: BASO % 0.2 % (0.0-1.0); EOS # 0.1 10^3/uL (0.0-0.5); HEMATOCRIT 38.5 % (42.0-52.0); HEMOGLOBIN 12.7 g/dl (13.5-17.5); LYMPH # 0.4 10^3/uL (1.5-5.0); LYMPH % 4.4 % (24.0-44.0); MEAN CORPUSCULAR HEMOGLOBIN 29.3 pg (27.0-33.0); MEAN CORPUSCULAR VOLUME 88.7 fl (80.0-96.0); MONO # 0.7 10^3/uL (0.0-0.8); MONO % 7.6 % (2.0-8.0); NEUTROPHILS # 7.5 10^3/uL (1.5-8.5); NEUTROPHILS % 86.1 % (36.0-66.0); PLATELET COUNT, AUTOMATED 109 10^3/uL (150-450); RED BLOOD COUNT 4.34 10^6/uL (4.30-6.10); WHITE BLOOD COUNT 8.7 10^3/uL (4.0-10.0)
[2025-02-19] MEDS: methylPREDNISolone 125MG 2ML VIAL IV ONE (09:48)
[2025-02-19 10:09] LABS: CK-MB VALUE MASS < 1.0 NG/ML (<3.6)
[2025-02-19 10:12] LABS: ALBUMIN 3.6 G/DL (3.2-5.2); ALKALINE PHOSPHATASE 93 U/L (40-129); ALT/SGPT 22 U/L (7.0-40); AST/SGOT 28 U/L (<34); BILIRUBIN,DIRECT 0.2 MG/DL (<0.4); BILIRUBIN,TOTAL 0.6 MG/DL (0.3-1.2); BLOOD UREA NITROGEN 13 MG/DL (9-23); CALCIUM LEVEL 8.4 MG/DL (8.3-10.6); CARBON DIOXIDE LEVEL 32 MMOL/L (20-31); CHLORIDE LEVEL 96 MMOL/L (98-107); CPK CREATINE PHOSPHOKINASE 64 U/L (46-171); CREATININE FOR GFR 0.44 MG/DL (0.70-1.30); GLOMERULAR FILTRATION RATE > 90.0 (>35); GLUCOSE, FASTING 145 MG/DL (74-106); MB/CK RELATIVE INDEX 1.56 (< OR =4); SODIUM LEVEL 134 MMOL/L (136-145)
[2025-02-19 10:14] LABS: THYROID STIMULATING HORMONE 1.419 uIU/ML (0.55-4.78); THYROXINE (T4) 6.4 UG/DL (4.5-10.9)
[2025-02-19] MEDS ORDERED: ISOVUE-370 76% 100ML VIAL As Ordered ONE (10:15)
[2025-02-19 10:18] LABS: PROCALCITONIN <0.04 ng/ml
[2025-02-19 11:32] LABS: CK-MB VALUE MASS < 1.0 NG/ML (<3.6)
[2025-02-19 11:34] LABS: CPK CREATINE PHOSPHOKINASE 59 U/L (46-171); MB/CK RELATIVE INDEX 1.69 (< OR =4)
[2025-02-19 12:06] VITALS: O2SAT 95
[2025-02-19] MEDS ORDERED: MOXI1TAB PO (12:29)
[2025-02-19] MEDS: MOXIFLOXACIN 400 MG TAB PO ONE (12:36)
[2025-02-19 12:39] VITALS: BP 173/85; TEMP 99; O2SAT 97
[2025-02-21] MEDS ORDERED: MULT-40 PO (12:15)
[2025-02-21] MEDS ORDERED: CALC200T15 PO (12:15)
[2025-02-21] MEDS ORDERED: SENN1TAB85 PO (12:15)
[2025-02-21] MEDS ORDERED: PHEN1TAB73 PO (12:15)
[2025-02-21] MEDS ORDERED: SUCR1TAB56 PO (12:15)
[2025-02-21] MEDS ORDERED: OMEP-173 PO (12:15)
[2025-02-21] MEDS ORDERED: GLUCLIQ37 PO (12:15)
[2025-02-21] MEDS ORDERED: ISOS1TAB36 PO (12:15)
[2025-02-21] MEDS ORDERED: METO1TAB7 PO (12:15)
== END 2025-02-19 12:44 | disposition home or self-care (01) ==
LOC: M ED 08:52
DX: J18.9 Pneumonia, unspecified organism (principal); J44.1 Chronic obstructive pulmonary disease with (acute) exacerbation; I48.91 Unspecified atrial fibrillation; I50.9 Heart failure, unspecified; Z98.61 Coronary angioplasty status; Z87.891 Personal history of nicotine dependence
CPT/HCPCS: 71045; 71275; 80047; 80048; 80076; 82550; 82553; 82803; 83605; 83880; 84145; 84436; 84443; 84484; 85025; 87040; 87070; 87205; 87486; 87581; 87633; 87798; 93005; 93041; 94640; 94760; 96374; 99285; J2919; Q9967

== ENCOUNTER → 2025-02-21 | Outpatient (CLI) | payer MEDICARE, OTHER ==
[~2025-02-21] MED LIST changes: +CALC200T15 PO; +HOME MED LIST COMPLETE! XX SCH; +ISOS1TAB36 PO; +LIDOCAINE 1% MDV 20ML VIAL As Ordered ONE; +METO1TAB7 PO; +MOXI1TAB PO; +MULT-40 PO; +OMEP-173 PO; +PHEN1TAB73 PO; +SENN1TAB85 PO; +SUCR1TAB56 PO
[2025-02-21 11:03] VITALS: TEMP 97.6
[2025-02-21 14:00] VITALS: BP 135/64; O2SAT 98
== END ==
LOC: M IRPRO 10:52
PROVIDERS: ATTEND Internal Medicine Critical Care Medicine
DX: R91.8 Other nonspecific abnormal finding of lung field (principal); C34.12 Malignant neoplasm of upper lobe, left bronchus or lung

== ENCOUNTER 2025-04-08 10:36 | Outpatient (RCR) | payer OTHER, MEDICARE ==
[~2025-04-08 10:36] MED LIST changes: +BUDE10.7 INH; +BUPR150T12 PO; -HOME MED LIST COMPLETE! XX SCH; -LIDOCAINE 1% MDV 20ML VIAL As Ordered ONE; +METH-1164 PO; +METO1TAB32 PO; +OMEP40CA5 PO
[2025-04-12] MEDS ORDERED: PERC5TAB12 PO (11:44)
[2025-04-12] MEDS ORDERED: LIDO1ADH93 TD (11:44)
[2025-04-16] MEDS ORDERED: PERCOCET PO (09:06)
[2025-04-16] MEDS ORDERED: LIDO1PAD TOP (09:06)
[2025-04-16] MEDS ORDERED: ISOS1TAB36 PO (09:06)
== END 2025-04-18 ==
LOC: M ONCR 10:36
PROVIDERS: ATTEND General Practice
DX: Z51.0 Encounter for antineoplastic radiation therapy (principal); C34.12 Malignant neoplasm of upper lobe, left bronchus or lung

== ENCOUNTER → 2025-04-27 | Outpatient (REF) | payer MEDICARE, OTHER ==
[~2025-04-27] MED LIST changes: +LIDO1ADH93 TD; +LIDO1PAD TOP; +PERC5TAB12 PO; +PERCOCET PO
== END ==
LOC: M SMT 17:11
PROVIDERS: ATTEND Nurse Practitioner Family
DX: N21.8 Other lower urinary tract calculus (principal)

== ENCOUNTER 2025-05-03 14:00 | Outpatient (RCR) | payer OTHER, MEDICARE ==
[2025-05-19] MEDS ORDERED: PRIM250T8 PO (13:15)
== END 2025-05-19 ==
LOC: M ONCR 14:00
PROVIDERS: ATTEND General Practice
DX: Z51.0 Encounter for antineoplastic radiation therapy (principal); C34.12 Malignant neoplasm of upper lobe, left bronchus or lung

== ENCOUNTER → 2025-05-16 | Outpatient (CLI) | payer MEDICARE, OTHER ==
[2025-05-16 13:17] LABS: BASO # 0.0 10^3/uL (0.0-0.2); BASO % 0.7 % (0.0-1.0); EOS # 0.2 10^3/uL (0.0-0.5); EOS % 4.5 % (0.0-3.0); LYMPH # 0.4 10^3/uL (1.5-5.0); LYMPH % 9.8 % (24.0-44.0); MONO # 0.5 10^3/uL (0.0-0.8); MONO % 11.7 % (2.0-8.0); NEUTROPHILS # 3.1 10^3/uL (1.5-8.5); NEUTROPHILS % 72.8 % (36.0-66.0); PLATELET COUNT, AUTOMATED 103 10^3/uL (150-450)
[2025-05-16 13:22] LABS: ALT/SGPT 16 U/L (7.0-40); AST/SGOT 27 U/L (<34); CALCIUM LEVEL 8.5 MG/DL (8.3-10.6); CARBON DIOXIDE LEVEL 32 MMOL/L (20-31); CHLORIDE LEVEL 95 MMOL/L (98-107); CREATININE FOR GFR 0.48 MG/DL (0.70-1.30); GLOMERULAR FILTRATION RATE > 90.0 (>35); POTASSIUM SERUM 4.2 MMOL/L (3.5-5.1); SODIUM LEVEL 135 MMOL/L (136-145)
[2025-05-16 13:26] LABS: VITAMIN B12 LEVEL 1698 PG/ML (211-911)
[2025-05-19 08:16] LABS: PHENOBARBITAL (PRIMIDONE) < 5.0 mg/L (15.0-40.0); PRIMIDONE, SERUM 6.4 mg/L (5.0-12.0)
[2025-05-20 04:53] LABS: VITAMIN E(ALPHA TOCOPHEROL) 16.0 mg/L (5.7-19.9); VITAMIN E(GAMMA TOCOPHEROL) < 1.0 mg/L (<=4.3)
[2025-05-22 17:45] LABS: VITAMIN B1 LEVEL WHOLE BLOOD 223 nmol/L (78-185)
[2025-05-22 18:13] LABS: VITAMIN B6,PYRIDOXAL PHOSPHATE 30.5 ng/mL (2.1-21.7)
== END ==
LOC: M WUC 08:17
PROVIDERS: ATTEND Psychiatry & Neurology Neurology
DX: R25.1 Tremor, unspecified (principal)

== ENCOUNTER → 2025-05-16 | Outpatient (CLI) | payer MEDICARE, OTHER ==
[2025-05-16 13:17] LABS: BASO # 0.0 10^3/uL (0.0-0.2); BASO % 0.5 % (0.0-1.0); EOS # 0.2 10^3/uL (0.0-0.5); EOS % 4.3 % (0.0-3.0); LYMPH # 0.5 10^3/uL (1.5-5.0); LYMPH % 12.6 % (24.0-44.0); MONO # 0.5 10^3/uL (0.0-0.8); MONO % 11.5 % (2.0-8.0); NEUTROPHILS # 2.9 10^3/uL (1.5-8.5); NEUTROPHILS % 70.1 % (36.0-66.0); PLATELET COUNT, AUTOMATED 103 10^3/uL (150-450)
[2025-05-16 13:24] LABS: ALT/SGPT 17 U/L (7.0-40); AST/SGOT 27 U/L (<34); CALCIUM LEVEL 8.7 MG/DL (8.3-10.6); CARBON DIOXIDE LEVEL 31 MMOL/L (20-31); CHLORIDE LEVEL 95 MMOL/L (98-107); CREATININE FOR GFR 0.48 MG/DL (0.70-1.30); GLOMERULAR FILTRATION RATE > 90.0 (>35); POTASSIUM SERUM 4.2 MMOL/L (3.5-5.1); SODIUM LEVEL 135 MMOL/L (136-145)
== END ==
LOC: M WUC 08:19
PROVIDERS: ATTEND Specialist
DX: C34.90 Malignant neoplasm of unspecified part of unspecified bronchus or lung (principal)

== ENCOUNTER 2025-05-27 10:46 | Inpatient (IN) | payer OTHER, MEDICARE ==
[2025-05-27] MEDS: ACETAMINOPHEN 325 MG TAB PO ONE (11:47)
[2025-05-27 14:02] LABS: BASO # 0.0 10^3/uL (0.0-0.2); BASO % 0.2 % (0.0-1.0); EOS # 0.0 10^3/uL (0.0-0.5); EOS % 0.0 % (0.0-3.0); LYMPH # 0.2 10^3/uL (1.5-5.0); LYMPH % 3.9 % (24.0-44.0); MONO # 0.5 10^3/uL (0.0-0.8); MONO % 9.0 % (2.0-8.0); NEUTROPHILS # 4.4 10^3/uL (1.5-8.5); NEUTROPHILS % 86.1 % (36.0-66.0)
[2025-05-27 14:29] LABS: PLATELET COUNT, AUTOMATED 73 10^3/uL (150-450)
[2025-05-27 14:33] LABS: ALT/SGPT 24 U/L (7.0-40); AST/SGOT 48 U/L (<34); CALCIUM LEVEL 7.9 MG/DL (8.3-10.6); CARBON DIOXIDE LEVEL 27 MMOL/L (20-31); CHLORIDE LEVEL 89 MMOL/L (98-107); CREATININE FOR GFR 0.36 MG/DL (0.70-1.30); GLOMERULAR FILTRATION RATE > 90.0 (>35); POTASSIUM SERUM 3.8 MMOL/L (3.5-5.1); SODIUM LEVEL 127 MMOL/L (136-145)
[2025-05-27] MEDS: IPRATROPIUM 0.5 MG/ALBUTEROL 2.5 MG INH SOL UD 3 ML NEB ONE (14:43)
[2025-05-27] MEDS: AZITHROMYCIN 250 MG TABLET PO ONE (15:07)
[2025-05-27] MEDS: cefTRIAXone SOD 1 GM in DEXTROSE 5% (D5W) ADV/MINI-BAG 50 ML IV ONE (15:07)
[2025-05-27 15:20] LABS: MAGNESIUM LEVEL 1.5 MG/DL (1.8-2.4)
[2025-05-27] MEDS ORDERED: ISOVUE-370 76% 100 ML VIAL As Ordered ONE (16:30)
[2025-05-27] MEDS ORDERED: HOME MED LIST COMPLETE! XX SCH (16:35)
[2025-05-27] MEDS ORDERED: GLUCAGON INJ 1 MG VIAL SC PRN (16:35)
[2025-05-27] MEDS ORDERED: DEXTROSE 50% 50 ML SYRINGE IV PRN (16:35)
[2025-05-27] MEDS ORDERED: GLUCOSE 4 GM CHEW PO PRN (16:35)
[2025-05-27 17:29] VITALS: BP 159/75; TEMP 97.7; O2SAT 97
[2025-05-27 18:13] LABS: SODIUM LEVEL 129 MMOL/L (136-145)
[2025-05-27 18:18] LABS: OSMOLALITY SERUM 275 MOSM/KG (280-301)
[2025-05-27] MEDS: MAG SULF 1GM/100ML (MAG RUN) 1 GM in IV 1 EA IV SCH (18:27)
[2025-05-27] MEDS: INSULIN LISPRO (NovoLOG) PER UNIT SC SCH ×2 (18:29→21:00)
[2025-05-27] MEDS ORDERED: ALBUTEROL SULFATE 2.5 MG/0.5 ML INH CONCENTRATE NEB SOLN NEB PRN (19:10)
[2025-05-27] MEDS ORDERED: PILL CUTTER 1 EACH XX PRN (19:25)
[2025-05-27] MEDS: MAGNESIUM OXIDE 400 MG TAB PO SCH (19:39)
[2025-05-27] MEDS: METOPROLOL SUCC. 25 MG *XL* TAB PO SCH (19:39)
[2025-05-27] MEDS: ISOSORBIDE MONONITRATE 60 MG XR TAB PO SCH (19:39)
[2025-05-27] MEDS: guaiFENesin ER TABLET 600 MG TAB PO SCH (19:40)
[2025-05-27] MEDS: TAMSULOSIN 0.4 MG CAP PO SCH (19:40)
[2025-05-27] MEDS: REMDESIVIR 200 MG in NS 250 ML IV ONE (21:01)
[2025-05-27] MEDS: BUDESONIDE 0.5 MG/2 ML INHALATION SUSPENSION NEB SCH (21:24)
[2025-05-27] MEDS: IPRATROPIUM 0.5 MG/ALBUTEROL 2.5 MG INH SOL UD 3 ML NEB SCH (21:24)
[2025-05-27] MEDS: LATANOPROST 0.005% OPHTH SOLN 2.5 ML OU SCH (21:46)
[2025-05-27] MEDS: PRIMIDONE 250 MG TAB PO SCH (21:46)
[2025-05-27 23:52] VITALS: BP 127/70; TEMP 98.1; O2SAT 97
[2025-05-28 03:56] VITALS: BP 130/66; TEMP 98.1; O2SAT 96
[2025-05-28 06:30] LABS: BASO # 0.0 10^3/uL (0.0-0.2); BASO % 0.0 % (0.0-1.0); EOS # 0.0 10^3/uL (0.0-0.5); EOS % 0.0 % (0.0-3.0); LYMPH # 0.3 10^3/uL (1.5-5.0); LYMPH % 7.9 % (24.0-44.0); MONO # 0.3 10^3/uL (0.0-0.8); MONO % 8.1 % (2.0-8.0); NEUTROPHILS # 3.0 10^3/uL (1.5-8.5); NEUTROPHILS % 83.4 % (36.0-66.0)
[2025-05-28 06:32] LABS: PLATELET COUNT, AUTOMATED 91 10^3/uL (150-450)
[2025-05-28 07:08] LABS: ALT/SGPT 20 U/L (7.0-40); AST/SGOT 33 U/L (<34); CALCIUM LEVEL 7.8 MG/DL (8.3-10.6); CARBON DIOXIDE LEVEL 30 MMOL/L (20-31); CHLORIDE LEVEL 94 MMOL/L (98-107); CREATININE FOR GFR 0.38 MG/DL (0.70-1.30); GLOMERULAR FILTRATION RATE > 90.0 (>35); MAGNESIUM LEVEL 1.8 MG/DL (1.8-2.4); POTASSIUM SERUM 3.1 MMOL/L (3.5-5.1); SODIUM LEVEL 134 MMOL/L (136-145)
[2025-05-28] MEDS: ALBUTEROL 90 MCG/ACT 8 GM HFA INHALER INH SCH (08:00)
[2025-05-28] MEDS: SYMBICORT 160/4.5MCG INHALER 6GM INH SCH (08:00)
[2025-05-28] MEDS ORDERED: PANTOPRAZOLE 40MG VIAL IV SCH (09:00)
[2025-05-28] MEDS: CEPACOL LOZENGE PO PRN (09:03)
[2025-05-28 09:04] VITALS: TEMP 98.4
[2025-05-28] MEDS: ATORVASTATIN 20 MG TAB PO SCH (10:33)
[2025-05-28] MEDS: buPROPion **XL** 150 MG TABLET PO SCH (10:35)
[2025-05-28] MEDS: SENNOSIDES/DOCUSATE SODIUM 8.6 MG/50MG TAB PO SCH (10:36)
[2025-05-28] MEDS: AZITHROMYCIN 250 MG TABLET PO SCH (10:36)
[2025-05-28] MEDS: OMEPRAZOLE 20MG CAP PO SCH (10:37)
[2025-05-28] MEDS: POTASSIUM CHLORIDE 10MEQ SR TABLET PO ONE (10:37)
[2025-05-28] MEDS: predniSONE 20 MG TAB PO SCH (10:37)
[2025-05-28] MEDS: ACETAMINOPHEN 500 MG TAB PO ONE (10:39)
[2025-05-28 11:45] VITALS: BP 127/61; TEMP 98.8; O2SAT 98
[2025-05-28] MEDS: cefTRIAXone SOD 1 GM in DEXTROSE 5% (D5W) ADV/MINI-BAG 50 ML IV SCH (13:32)
[2025-05-28] MEDS: SUCRALFATE 1 GM TAB PO SCH (17:25)
[2025-05-28 20:41] VITALS: BP 151/62; TEMP 97.1; O2SAT 98
[2025-05-28] MEDS: ACETAMINOPHEN 325 MG TAB PO PRN (21:12)
[2025-05-29 03:10] VITALS: BP 155/74; TEMP 97.7; O2SAT 97
[2025-05-29 06:53] LABS: BASO # 0.0 10^3/uL (0.0-0.2); BASO % 0.0 % (0.0-1.0); EOS # 0.0 10^3/uL (0.0-0.5); EOS % 0.4 % (0.0-3.0); LYMPH # 0.4 10^3/uL (1.5-5.0); LYMPH % 12.8 % (24.0-44.0); MONO # 0.2 10^3/uL (0.0-0.8); MONO % 8.8 % (2.0-8.0); NEUTROPHILS # 2.1 10^3/uL (1.5-8.5); NEUTROPHILS % 77.6 % (36.0-66.0)
[2025-05-29 06:55] LABS: PLATELET COUNT, AUTOMATED 85 10^3/uL (150-450)
[2025-05-29 07:25] LABS: ALT/SGPT 22 U/L (7.0-40); AST/SGOT 35 U/L (<34); CALCIUM LEVEL 7.8 MG/DL (8.3-10.6); CARBON DIOXIDE LEVEL 32 MMOL/L (20-31); CHLORIDE LEVEL 96 MMOL/L (98-107); CREATININE FOR GFR 0.49 MG/DL (0.70-1.30); GLOMERULAR FILTRATION RATE > 90.0 (>35); MAGNESIUM LEVEL 1.8 MG/DL (1.8-2.4); POTASSIUM SERUM 4.0 MMOL/L (3.5-5.1); SODIUM LEVEL 135 MMOL/L (136-145)
[2025-05-29 12:00] VITALS: BP 122/67; TEMP 98.8; O2SAT 96
[2025-05-29 20:00] VITALS: BP 155/79; TEMP 97.7; O2SAT 95
[2025-05-29] MEDS: APIXABAN 2.5 MG TAB PO SCH (20:37)
[2025-05-30 05:05] VITALS: BP 155/80; TEMP 97.9
[2025-05-30 07:12] LABS: BASO # 0.0 10^3/uL (0.0-0.2); BASO % 0.0 % (0.0-1.0); EOS # 0.0 10^3/uL (0.0-0.5); EOS % 0.0 % (0.0-3.0); LYMPH # 0.4 10^3/uL (1.5-5.0); LYMPH % 16.0 % (24.0-44.0); MONO # 0.2 10^3/uL (0.0-0.8); MONO % 9.3 % (2.0-8.0); NEUTROPHILS # 1.7 10^3/uL (1.5-8.5); NEUTROPHILS % 74.3 % (36.0-66.0)
[2025-05-30 07:19] LABS: PLATELET COUNT, AUTOMATED 93 10^3/uL (150-450)
[2025-05-30 08:03] LABS: ALT/SGPT 24 U/L (7.0-40); AST/SGOT 39 U/L (<34); CALCIUM LEVEL 7.7 MG/DL (8.3-10.6); CARBON DIOXIDE LEVEL 31 MMOL/L (20-31); CHLORIDE LEVEL 96 MMOL/L (98-107); CREATININE FOR GFR 0.39 MG/DL (0.70-1.30); GLOMERULAR FILTRATION RATE > 90.0 (>35); MAGNESIUM LEVEL 1.9 MG/DL (1.8-2.4); POTASSIUM SERUM 3.6 MMOL/L (3.5-5.1); SODIUM LEVEL 136 MMOL/L (136-145)
[2025-05-30 12:00] VITALS: BP 145/73; TEMP 98.1; O2SAT 99
[2025-05-30] MEDS: CEFDINIR 300 MG CAP PO SCH (12:29)
[2025-05-30 19:34] VITALS: BP 149/74; TEMP 97.9; O2SAT 98
[2025-05-30 20:06] VITALS: BP 156/69
[2025-05-31 04:11] VITALS: BP 145/83; TEMP 98.1; O2SAT 96
[2025-05-31] MEDS ORDERED: PRED10TA2 PO (10:42)
[2025-05-31] MEDS ORDERED: CEFD300CAP PO ×2 (10:42→11:51)
[2025-05-31] MEDS ORDERED: MUCI600T31 PO (10:42)
[2025-05-31] MEDS ORDERED: PRED20TA PO (11:51)
[2025-05-31 12:00] VITALS: BP 148/75; TEMP 97.1; O2SAT 90
== END 2025-05-31 13:10 | disposition home or self-care (01) | DRG 177 ==
LOC: M ED 10:46 → M ED INP 16:08 → M MSPAV 17:21
PROVIDERS: ADMIT Internal Medicine; ATTEND Internal Medicine
DX: U07.1 COVID-19 (principal); J15.9 Unspecified bacterial pneumonia; E87.1 Hypo-osmolality and hyponatremia; J44.1 Chronic obstructive pulmonary disease with (acute) exacerbation; J44.0 Chronic obstructive pulmonary disease with (acute) lower respiratory infection; D61.818 Other pancytopenia; C34.12 Malignant neoplasm of upper lobe, left bronchus or lung; I48.91 Unspecified atrial fibrillation; E11.9 Type 2 diabetes mellitus without complications; F39 Unspecified mood [affective] disorder; R54 Age-related physical debility; R53.1 Weakness; K21.9 Gastro-esophageal reflux disease without esophagitis; R19.7 Diarrhea, unspecified; E78.5 Hyperlipidemia, unspecified; E83.42 Hypomagnesemia; I25.10 Atherosclerotic heart disease of native coronary artery without angina pectoris; N40.0 Benign prostatic hyperplasia without lower urinary tract symptoms; Z85.46 Personal history of malignant neoplasm of prostate; Z85.118 Personal history of other malignant neoplasm of bronchus and lung; Z92.3 Personal history of irradiation; Z95.1 Presence of aortocoronary bypass graft; Z79.51 Long term (current) use of inhaled steroids; Z79.891 Long term (current) use of opiate analgesic; Z79.899 Other long term (current) drug therapy; Z88.5 Allergy status to narcotic agent

== ENCOUNTER 2025-06-06 11:38 | Inpatient (IN) | payer OTHER, MEDICARE ==
[~2025-06-06] VITALS: Ht 167.6 cm; Wt 51.8 kg
[~2025-06-06 11:38] MED LIST changes: +MUCI600T31 PO
[2025-06-06 12:13] LABS: VENOUS BASE EXCESS 4.5 (-2.0-2.0); VENOUS HCO3 31.1 MMOL/L (23.0-27.0); VENOUS O2 SATURATION 70.8 % (60.0-80.0); VENOUS PARTIAL PRESSURE CO2 54.7 mmHg (38.0-50.0); VENOUS PARTIAL PRESSURE O2 37.4 mmHg (30.0-50.0); VENOUS PH 7.372 UNITS (7.330-7.430); VENOUS STANDARD HCO3 27.9 MMOL/L; VENOUS TOTAL CO2 32.7 MMOL/L (24.0-28.0)
[2025-06-06 12:25] LABS: BASO # 0.0 10^3/uL (0.0-0.2); BASO % 0.4 % (0.0-1.0); EOS # 0.0 10^3/uL (0.0-0.5); EOS % 0.8 % (0.0-3.0); LYMPH # 0.4 10^3/uL (1.5-5.0); LYMPH % 7.9 % (24.0-44.0); MONO # 0.6 10^3/uL (0.0-0.8); MONO % 11.0 % (2.0-8.0); NEUTROPHILS # 4.0 10^3/uL (1.5-8.5); NEUTROPHILS % 77.4 % (36.0-66.0); PLATELET COUNT, AUTOMATED 156 10^3/uL (150-450)
[2025-06-06 12:45] LABS: ALT/SGPT 31 U/L (7.0-40); AST/SGOT 43 U/L (<34); CALCIUM LEVEL 8.1 MG/DL (8.3-10.6); CARBON DIOXIDE LEVEL 28 MMOL/L (20-31); CHLORIDE LEVEL 97 MMOL/L (98-107); CREATININE FOR GFR 0.48 MG/DL (0.70-1.30); GLOMERULAR FILTRATION RATE > 90.0 (>35); POTASSIUM SERUM 4.6 MMOL/L (3.5-5.1); SODIUM LEVEL 134 MMOL/L (136-145)
[2025-06-06] MEDS: IPRATROPIUM 0.5 MG/ALBUTEROL 2.5 MG INH SOL UD 3 ML NEB ONE (13:46)
[2025-06-06] MEDS ORDERED: HOME MED LIST COMPLETE! XX SCH (14:45)
[2025-06-06] MEDS ORDERED: CALCD50TA PO (14:45)
[2025-06-06] MEDS ORDERED: LIDOCAINE 5% PATCH TOP PRN (18:45)
[2025-06-06] MEDS ORDERED: METAMUCIL PACKET PO PRN (18:45)
[2025-06-06] MEDS ORDERED: NITROGLYCERIN 0.4 MG SUBL TABLET SL PRN (18:45)
[2025-06-06] MEDS ORDERED: ALBUTEROL 90 MCG/ACT 8 GM HFA INHALER INH PRN (18:55)
[2025-06-06] MEDS: PANTOPRAZOLE 40MG TAB PO ONE (20:31)
[2025-06-06] MEDS: SENNOSIDES/DOCUSATE SODIUM 8.6 MG/50MG TAB PO SCH (20:31)
[2025-06-06] MEDS: METOPROLOL SUCC. 25 MG *XL* TAB PO SCH (20:31)
[2025-06-06] MEDS: TAMSULOSIN 0.4 MG CAP PO SCH (20:31)
[2025-06-06 21:00] VITALS: BP 158/73; TEMP 97.5; O2SAT 96
[2025-06-06 21:00] LABS: D-DIMER QUANT 0.28 ug/mL (<0.5); INR 1.15
[2025-06-06] MEDS ORDERED: SAVAYSA PO SCH (21:00)
[2025-06-06] MEDS: METOCLOPRAMIDE 5 MG TAB PO SCH (21:00)
[2025-06-06] MEDS: ISOSORBIDE MONONITRATE 60 MG XR TAB PO SCH (21:00)
[2025-06-06] MEDS: FERROUS GLUCONATE 324 MG TAB PO SCH (21:00)
[2025-06-06] MEDS ORDERED: PRIMIDONE 125MG PER 1/2 TABLET PO SCH (21:00)
[2025-06-06] MEDS: PRIMIDONE 250 MG TAB PO SCH (21:00)
[2025-06-06] MEDS: CALCIUM/VITAMIN D 500 MG TAB PO SCH (21:00)
[2025-06-06] MEDS ORDERED: BREZTRI INH SCH (21:00)
[2025-06-06] MEDS: LATANOPROST 0.005% OPHTH SOLN 2.5 ML OU SCH (21:00)
[2025-06-06] MEDS: guaiFENesin ER TABLET 600 MG TAB PO SCH (21:00)
[2025-06-06 21:10] LABS: MAGNESIUM LEVEL 1.7 MG/DL (1.8-2.4)
[2025-06-06 21:11] LABS: LDH LACTATE DEHYDROGENASE 87.0 U/L (120-246)
[2025-06-06 21:12] LABS: C REACTIVE PROTEIN QUANTITATIV 2.34 MG/DL (<1.0)
[2025-06-06] MEDS ORDERED: PILL CUTTER 1 EACH XX PRN (22:20)
[2025-06-07] VITALS (11 sets, daily range): BP systolic 134–176; BP diastolic 66–80; TEMP 97.2–97.9; O2SAT 93–98
[2025-06-07 07:39] LABS: BASO # 0.0 10^3/uL (0.0-0.2); BASO % 0.2 % (0.0-1.0); EOS # 0.0 10^3/uL (0.0-0.5); EOS % 0.0 % (0.0-3.0); LYMPH # 0.2 10^3/uL (1.5-5.0); LYMPH % 4.8 % (24.0-44.0); MONO # 0.2 10^3/uL (0.0-0.8); MONO % 3.8 % (2.0-8.0); NEUTROPHILS # 4.3 10^3/uL (1.5-8.5); NEUTROPHILS % 89.9 % (36.0-66.0); PLATELET COUNT, AUTOMATED 119 10^3/uL (150-450)
[2025-06-07 07:55] LABS: CALCIUM LEVEL 7.9 MG/DL (8.3-10.6); CARBON DIOXIDE LEVEL 26 MMOL/L (20-31); CHLORIDE LEVEL 97 MMOL/L (98-107); CREATININE FOR GFR 0.36 MG/DL (0.70-1.30); GLOMERULAR FILTRATION RATE > 90.0 (>35); MAGNESIUM LEVEL 1.7 MG/DL (1.8-2.4); POTASSIUM SERUM 4.4 MMOL/L (3.5-5.1); SODIUM LEVEL 133 MMOL/L (136-145)
[2025-06-07] MEDS: buPROPion **XL** 150 MG TABLET PO SCH (09:56)
[2025-06-07] MEDS: ATORVASTATIN 20 MG TAB PO SCH (09:56)
[2025-06-07] MEDS: MAG SULF 1GM/100ML (MAG RUN) 1 GM in IV 1 EA IV ONE (10:41)
[2025-06-07] MEDS: cefTRIAXone SOD 1 GM in DEXTROSE 5% (D5W) ADV/MINI-BAG 50 ML IV SCH (15:13)
[2025-06-07] MEDS: SUCRALFATE 1 GM TAB PO SCH (18:14)
[2025-06-07] MEDS: ENOXAPARIN 60 MG/0.6 ML SYRINGE (J1650 PER 10MG) SC SCH (20:56)
[2025-06-08] VITALS (7 sets, daily range): BP systolic 128; BP diastolic 60; TEMP 97.2–97.9; O2SAT 93–98
[2025-06-08 07:10] LABS: PLATELET COUNT, AUTOMATED 117 10^3/uL (150-450)
[2025-06-08 07:55] LABS: CALCIUM LEVEL 8.0 MG/DL (8.3-10.6); CARBON DIOXIDE LEVEL 28 MMOL/L (20-31); CHLORIDE LEVEL 96 MMOL/L (98-107); CREATININE FOR GFR 0.44 MG/DL (0.70-1.30); GLOMERULAR FILTRATION RATE > 90.0 (>35); MAGNESIUM LEVEL 1.6 MG/DL (1.8-2.4); POTASSIUM SERUM 3.8 MMOL/L (3.5-5.1); SODIUM LEVEL 133 MMOL/L (136-145)
[2025-06-09] VITALS (13 sets, daily range): BP systolic 114–158; BP diastolic 60–78; TEMP 97.5–98.2; O2SAT 96–100
[2025-06-09 08:50] LABS: BASO # 0.0 10^3/uL (0.0-0.2); BASO % 0.0 % (0.0-1.0); EOS # 0.0 10^3/uL (0.0-0.5); EOS % 0.6 % (0.0-3.0); LYMPH # 0.4 10^3/uL (1.5-5.0); LYMPH % 12.2 % (24.0-44.0); MONO # 0.3 10^3/uL (0.0-0.8); MONO % 10.0 % (2.0-8.0); NEUTROPHILS # 2.4 10^3/uL (1.5-8.5); NEUTROPHILS % 75.6 % (36.0-66.0); PLATELET COUNT, AUTOMATED 110 10^3/uL (150-450)
[2025-06-09 09:19] LABS: ALT/SGPT 23 U/L (7.0-40); AST/SGOT 28 U/L (<34); CALCIUM LEVEL 8.2 MG/DL (8.3-10.6); CARBON DIOXIDE LEVEL 32 MMOL/L (20-31); CHLORIDE LEVEL 98 MMOL/L (98-107); CREATININE FOR GFR 0.41 MG/DL (0.70-1.30); GLOMERULAR FILTRATION RATE > 90.0 (>35); MAGNESIUM LEVEL 1.6 MG/DL (1.8-2.4); POTASSIUM SERUM 4.1 MMOL/L (3.5-5.1); SODIUM LEVEL 138 MMOL/L (136-145)
[2025-06-09] MEDS: IPRATROPIUM 0.5 MG/ALBUTEROL 2.5 MG INH SOL UD 3 ML NEB SCH (12:36)
[2025-06-09] MEDS: MAGNESIUM OXIDE 400 MG TAB PO ONE (12:43)
[2025-06-09] MEDS ORDERED: IPRATROPIUM 0.5 MG/ALBUTEROL 2.5 MG INH SOL UD 3 ML NEB PRN (13:00)
[2025-06-10] VITALS: O2SAT 98
[2025-06-10 04:00] VITALS: O2SAT 98
[2025-06-10 04:47] VITALS: BP 128/61; TEMP 97.7; O2SAT 96
[2025-06-10 08:00] VITALS: O2SAT 95
[2025-06-10 12:00] VITALS: O2SAT 6
[2025-06-10 14:00] VITALS: BP 118/55; TEMP 97.9; O2SAT 99
[2025-06-10] MEDS ORDERED: DEXA2TA PO (15:46)
[2025-06-10] MEDS ORDERED: PRED20TA PO (16:19)
== END 2025-06-10 16:25 | disposition home health service (06) | DRG 868 ==
LOC: EDBD 11:38 → M ED 11:38 → M ED INP 18:33 → M MS5PR 21:00
PROVIDERS: ADMIT Family Medicine; ATTEND Student in an Organized Health Care Education/Training Program
DX: A49.9 Bacterial infection, unspecified (principal); C34.12 Malignant neoplasm of upper lobe, left bronchus or lung; I48.91 Unspecified atrial fibrillation; J44.9 Chronic obstructive pulmonary disease, unspecified; K21.9 Gastro-esophageal reflux disease without esophagitis; E11.9 Type 2 diabetes mellitus without complications; I25.10 Atherosclerotic heart disease of native coronary artery without angina pectoris; Z95.5 Presence of coronary angioplasty implant and graft; Z85.46 Personal history of malignant neoplasm of prostate; Z87.81 Personal history of (healed) traumatic fracture; Z79.899 Other long term (current) drug therapy; Z88.5 Allergy status to narcotic agent; Z86.16 Personal history of COVID-19; E78.5 Hyperlipidemia, unspecified; N40.0 Benign prostatic hyperplasia without lower urinary tract symptoms; F39 Unspecified mood [affective] disorder

== ENCOUNTER → 2025-06-27 | Outpatient (CLI) | payer MEDICARE, OTHER ==
[~2025-06-27] MED LIST changes: +CALCD50TA PO; +DEXA2TA PO
[2025-06-27 12:59] LABS: BASO # 0.0 10^3/uL (0.0-0.2); BASO % 0.5 % (0.0-1.0); EOS # 0.1 10^3/uL (0.0-0.5); EOS % 1.9 % (0.0-3.0); LYMPH # 0.4 10^3/uL (1.5-5.0); LYMPH % 11.5 % (24.0-44.0); MONO # 0.4 10^3/uL (0.0-0.8); MONO % 9.4 % (2.0-8.0); NEUTROPHILS # 2.8 10^3/uL (1.5-8.5); NEUTROPHILS % 75.1 % (36.0-66.0); PLATELET COUNT, AUTOMATED 102 10^3/uL (150-450)
[2025-06-27 13:26] LABS: LDH LACTATE DEHYDROGENASE 84 U/L (120-246)
[2025-06-27 13:27] LABS: ALT/SGPT 22 U/L (7.0-40); AST/SGOT 25 U/L (<34); CALCIUM LEVEL 8.5 MG/DL (8.3-10.6); CARBON DIOXIDE LEVEL 29 MMOL/L (20-31); CHLORIDE LEVEL 94 MMOL/L (98-107); CREATININE FOR GFR 0.45 MG/DL (0.70-1.30); GLOMERULAR FILTRATION RATE > 90.0 (>35); IRON (FE) 67 UG/DL (65-175); PERCENT SATURATION 24.1 % (19.7-50.0); POTASSIUM SERUM 4.2 MMOL/L (3.5-5.1); SODIUM LEVEL 132 MMOL/L (136-145)
[2025-06-28 10:43] LABS: T P ELECTROPHORESIS SO 5.4 g/dL (6.1-8.1)
[2025-06-29 12:07] LABS: FREE KAPPA LIGHT CHAINS SERUM 10.7 mg/L (3.3-19.4); FREE LAMBDA LIGHT CHAINS SERUM 9.0 mg/L (5.7-26.3); KAPPA/LAMBDA RATIO SERUM 1.19 (0.26-1.65)
[2025-06-30 08:23] LABS: ALBUMIN SPEP 3.4 g/dL (3.8-4.8); ALPHA-1-GLOBULINS SO 0.3 g/dL (0.2-0.3); ALPHA-2-GLOBULINS SO 0.7 g/dL (0.5-0.9); BETA 2 GLOBULIN 0.2 g/dL (0.2-0.5); BETA-GLOBULIN SO 0.3 g/dL (0.4-0.6); GAMMA GLOBULINS SO 0.4 g/dL (0.8-1.7)
== END ==
LOC: M WUC 08:08
PROVIDERS: ATTEND Specialist
DX: C34.90 Malignant neoplasm of unspecified part of unspecified bronchus or lung (principal)

== ENCOUNTER → 2025-06-28 | Outpatient (REF) | payer OTHER, MEDICARE ==
[2025-06-28 19:09] LABS: AMORPHOUS SEDIMENT SMALL (NEGATIVE); APPEARANCE, URINE CLOUDY (CLEAR); BACTERIA, URINE AUTO 1+ (NEGATIVE); BILIRUBIN, URINE AUTO NEGATIVE (NEGATIVE); BLOOD, URINE BLOOD NEGATIVE (NEGATIVE); CALCIUM OXALATE CRYSTALS MODERATE; GLUCOSE, URINE (UA) AUTO NEGATIVE (NEGATIVE); KETONE, URINE AUTO NEGATIVE (NEGATIVE); LEUKOCYTE ESTERASE, URINE AUTO NEGATIVE (NEGATIVE); MUCUS, URINE SMALL (NEGATIVE); NITRITE, URINE AUTO NEGATIVE (NEGATIVE); PROTEIN, URINE AUTO NEGATIVE (NEGATIVE); RBC, URINE AUTO 1 /HPF (0-3); SPECIFIC GRAVITY URINE AUTO 1.011 (1.002-1.035); SQUAMOUS EPITHELIAL CELL UR AU 0 /HPF (0-6); UROBILINOGEN, URINE AUTO 0.2 mg/dL (0.0-2.0); WBC, URINE AUTO 3 /HPF (0-3)
== END ==
LOC: M SMT 17:36
PROVIDERS: ATTEND Nurse Practitioner Family
DX: R10.9 Unspecified abdominal pain (principal)

== ENCOUNTER → 2025-06-29 | Outpatient (CLI) | payer OTHER, MEDICARE | LOC: M RAD 10:51 | PROVIDERS: ATTEND Physician Assistant | DX: S32.040D Wedge compression fracture of fourth lumbar vertebra, subsequent encounter for fracture with routine healing (principal); M47.816 Spondylosis without myelopathy or radiculopathy, lumbar region; M25.78 Osteophyte, vertebrae ==

== ENCOUNTER → 2025-06-30 | Outpatient (CLI) | payer OTHER, MEDICARE | LOC: M RAD 15:25 | PROVIDERS: ATTEND Nurse Practitioner Family | DX: K80.20 Calculus of gallbladder without cholecystitis without obstruction (principal) ==

== ENCOUNTER → 2025-07-05 | Outpatient (REF) | payer MEDICARE, OTHER | LOC: M LAB REF 13:23 | PROVIDERS: ATTEND Internal Medicine Critical Care Medicine | DX: J44.9 Chronic obstructive pulmonary disease, unspecified (principal); R54 Age-related physical debility ==

== ENCOUNTER → 2025-07-20 | Outpatient (REF) | payer OTHER, MEDICARE ==
[2025-07-20 14:46] LABS: AMORPHOUS SEDIMENT SMALL (NEGATIVE); APPEARANCE, URINE CLOUDY (CLEAR); BACTERIA, URINE AUTO NEGATIVE (NEGATIVE); BILIRUBIN, URINE AUTO NEGATIVE (NEGATIVE); BLOOD, URINE BLOOD NEGATIVE (NEGATIVE); CALCIUM OXALATE CRYSTALS LARGE; GLUCOSE, URINE (UA) AUTO NEGATIVE (NEGATIVE); KETONE, URINE AUTO NEGATIVE (NEGATIVE); LEUKOCYTE ESTERASE, URINE AUTO NEGATIVE (NEGATIVE); MUCUS, URINE SMALL (NEGATIVE); NITRITE, URINE AUTO NEGATIVE (NEGATIVE); PROTEIN, URINE AUTO NEGATIVE (NEGATIVE); RBC, URINE AUTO 1 /HPF (0-3); SPECIFIC GRAVITY URINE AUTO 1.015 (1.002-1.035); SQUAMOUS EPITHELIAL CELL UR AU 0 /HPF (0-6); UROBILINOGEN, URINE AUTO 0.2 mg/dL (0.0-2.0); WBC, URINE AUTO 2 /HPF (0-3)
== END ==
LOC: M SMT 12:51
PROVIDERS: ATTEND Nurse Practitioner Family
DX: R10.31 Right lower quadrant pain (principal)

== ENCOUNTER → 2025-07-29 | Outpatient (CLI) | payer MEDICARE, OTHER ==
[~2025-07-29] MED LIST changes: +ISOVUE-370 76% 100 ML VIAL As Ordered ONE
== END ==
LOC: M RAD 12:48
PROVIDERS: ATTEND General Practice
DX: C34.12 Malignant neoplasm of upper lobe, left bronchus or lung (principal); Z98.890 Other specified postprocedural states
CPT/HCPCS: 71260; Q9967

== ENCOUNTER → 2025-08-05 | Outpatient (CLI) | payer OTHER, MEDICARE ==
[~2025-08-05] MED LIST changes: -ISOVUE-370 76% 100 ML VIAL As Ordered ONE
== END ==
LOC: M ONCR 10:42
PROVIDERS: ATTEND General Practice
DX: C34.12 Malignant neoplasm of upper lobe, left bronchus or lung (principal); C61 Malignant neoplasm of prostate; Z87.891 Personal history of nicotine dependence; Z92.3 Personal history of irradiation; Z88.5 Allergy status to narcotic agent; Z79.51 Long term (current) use of inhaled steroids; Z79.899 Other long term (current) drug therapy

== ENCOUNTER → 2025-08-11 | Outpatient (CLI) | payer MEDICARE, OTHER ==
[~2025-08-11] MED LIST changes: +ALEN70TA82 PO; +IPRA0.00 NEB; +OYST1TAB PO
== END ==
LOC: M RAD 09:28
PROVIDERS: ATTEND Nurse Practitioner Family
DX: R10.31 Right lower quadrant pain (principal)

== ENCOUNTER → 2025-08-11 | Outpatient (REF) | payer MEDICARE, OTHER | LOC: M LAB REF 10:16 | PROVIDERS: ATTEND Internal Medicine Critical Care Medicine | DX: J44.9 Chronic obstructive pulmonary disease, unspecified (principal) ==

== ENCOUNTER 2025-08-15 09:10 | Emergency (ER) | payer MEDICARE, OTHER ==
[~2025-08-15] VITALS: Ht 167.6 cm; Wt 58.1 kg
[~2025-08-15 09:10] MED LIST changes: -ALEN70TA82 PO; -IPRA0.00 NEB; -OYST1TAB PO
[2025-08-15 13:01] LABS: BASO # 0.0 10^3/uL (0.0-0.2); BASO % 0.5 % (0.0-1.0); EOS # 0.1 10^3/uL (0.0-0.5); EOS % 2.5 % (0.0-3.0); LYMPH # 0.6 10^3/uL (1.5-5.0); LYMPH % 14.0 % (24.0-44.0); MONO # 0.5 10^3/uL (0.0-0.8); MONO % 13.0 % (2.0-8.0); NEUTROPHILS # 2.8 10^3/uL (1.5-8.5); NEUTROPHILS % 69.2 % (36.0-66.0); PLATELET COUNT, AUTOMATED 124 10^3/uL (150-450)
[2025-08-15 13:07] LABS: KETONE, URINE AUTO RFX NEGATIVE (NEGATIVE); LEUKOCYTE ESTERASE UR AUTO RFX NEGATIVE (NEGATIVE); MUCUS, URINE RFX SMALL (NEGATIVE); NITRITE, URINE AUTO RFX NEGATIVE (NEGATIVE); RBC, URINE AUTO RFX 3 /HPF (0-3); SQUAM EPITHELIAL CELL UR AURFX 1 /HPF (0-6); WBC, URINE AUTO RFX 3 /HPF (0-3)
[2025-08-15 13:26] LABS: CALCIUM LEVEL 8.6 MG/DL (8.3-10.6); CARBON DIOXIDE LEVEL 31 MMOL/L (20-31); CHLORIDE LEVEL 100 MMOL/L (98-107); CREATININE FOR GFR 0.43 MG/DL (0.70-1.30); GLOMERULAR FILTRATION RATE > 90.0 (>35); POTASSIUM SERUM 4.3 MMOL/L (3.5-5.1); SODIUM LEVEL 136 MMOL/L (136-145)
[2025-08-15] MEDS ORDERED: OYST1TAB PO (13:32)
[2025-08-15] MEDS ORDERED: IPRA0.00 NEB (13:32)
[2025-08-15] MEDS ORDERED: METO1TAB7 PO (13:32)
[2025-08-15] MEDS ORDERED: ALEN70TA82 PO (13:32)
[2025-08-15] MEDS ORDERED: HOME MED LIST COMPLETE! XX SCH (13:35)
[2025-08-15 14:30] VITALS: BP 166/77; O2SAT 99
[2025-08-15 14:56] VITALS: TEMP 97.5
== END 2025-08-15 15:24 | disposition home or self-care (01) ==
LOC: M ED 09:10
DX: R10.21 Pelvic and perineal pain right side (principal); I11.0 Hypertensive heart disease with heart failure; I50.9 Heart failure, unspecified; I25.2 Old myocardial infarction; E11.9 Type 2 diabetes mellitus without complications; K21.9 Gastro-esophageal reflux disease without esophagitis; E78.5 Hyperlipidemia, unspecified; F41.9 Anxiety disorder, unspecified; J44.9 Chronic obstructive pulmonary disease, unspecified; Z87.442 Personal history of urinary calculi; Z85.038 Personal history of other malignant neoplasm of large intestine; Z85.118 Personal history of other malignant neoplasm of bronchus and lung; Z98.61 Coronary angioplasty status; Z79.899 Other long term (current) drug therapy; Z88.5 Allergy status to narcotic agent

== ENCOUNTER → 2025-08-23 | Outpatient (CLI) | payer MEDICARE, OTHER ==
[~2025-08-23] MED LIST changes: +ALEN70TA82 PO; +IPRA0.00 NEB; +OYST1TAB PO
[2025-08-23 10:19] LABS: ABG BASE EXCESS 2.9 (-2.0-2.0); ABG HCO3 27.0 MMOL/L (22.0-26.0); ABG O2 SATURATION 98.0 % (95.0-99.0); ABG PARTIAL PRESSURE CO2 39.6 mmHg (35.0-45.0); ABG PARTIAL PRESSURE O2 105.4 mmHg (75.0-100.0); ABG STANDARD HCO3 27.1 MMOL/L. (22.0-26.0); ABG TOTAL CO2 28.2 MMOL/L (23.0-31.0); ABG pH (ARTERIAL) 7.452 UNITS (7.350-7.450)
== END ==
LOC: M LAB 09:25
PROVIDERS: ATTEND Internal Medicine Critical Care Medicine
DX: J44.9 Chronic obstructive pulmonary disease, unspecified (principal)

== ENCOUNTER → 2025-09-29 | Outpatient (CLI) | payer OTHER ==
[2025-09-29 13:13] LABS: BASO # 0.0 10^3/uL (0.0-0.2); BASO % 0.5 % (0.0-1.0); EOS # 0.1 10^3/uL (0.0-0.5); EOS % 2.1 % (0.0-3.0); LYMPH # 0.6 10^3/uL (1.5-5.0); LYMPH % 9.2 % (24.0-44.0); MONO # 0.5 10^3/uL (0.0-0.8); MONO % 7.7 % (2.0-8.0); NEUTROPHILS # 5.3 10^3/uL (1.5-8.5); NEUTROPHILS % 79.4 % (36.0-66.0); PLATELET COUNT, AUTOMATED 153 10^3/uL (150-450)
[2025-09-29 13:17] LABS: ALT/SGPT 20 U/L (7.0-40); AST/SGOT 29 U/L (<34); CALCIUM LEVEL 8.6 MG/DL (8.3-10.6); CARBON DIOXIDE LEVEL 31 MMOL/L (20-31); CHLORIDE LEVEL 98 MMOL/L (98-107); CREATININE FOR GFR 0.42 MG/DL (0.70-1.30); GLOMERULAR FILTRATION RATE > 90.0 (>35); POTASSIUM SERUM 4.4 MMOL/L (3.5-5.1); SODIUM LEVEL 137 MMOL/L (136-145)
== END ==
LOC: M WUC 09:27
PROVIDERS: ATTEND Specialist
DX: C34.90 Malignant neoplasm of unspecified part of unspecified bronchus or lung (principal)

== ENCOUNTER 2025-10-03 13:22 | Emergency (ER) | payer OTHER, MEDICARE ==
[~2025-10-03] VITALS: Ht 160 cm; Wt 60.4 kg
[2025-10-03] MEDS: NS 500 ML IV ONE (17:04)
[2025-10-03 17:13] LABS: BASO # 0.0 10^3/uL (0.0-0.2); BASO % 0.7 % (0.0-1.0); EOS # 0.2 10^3/uL (0.0-0.5); EOS % 3.5 % (0.0-3.0); LYMPH # 0.6 10^3/uL (1.5-5.0); LYMPH % 14.2 % (24.0-44.0); MONO # 0.5 10^3/uL (0.0-0.8); MONO % 11.0 % (2.0-8.0); NEUTROPHILS # 3.0 10^3/uL (1.5-8.5); NEUTROPHILS % 69.2 % (36.0-66.0); PLATELET COUNT, AUTOMATED 127 10^3/uL (150-450)
[2025-10-03 17:18] LABS: KETONE, URINE AUTO RFX NEGATIVE (NEGATIVE); MUCUS, URINE RFX SMALL (NEGATIVE); NITRITE, URINE AUTO RFX NEGATIVE (NEGATIVE); RBC, URINE AUTO RFX TNTC /HPF (0-3); SQUAM EPITHELIAL CELL UR AURFX 0 /HPF (0-6); WBC, URINE AUTO RFX 6 /HPF (0-3)
[2025-10-03 17:32] LABS: LEUKOCYTE ESTERASE UR AUTO RFX TRACE (NEGATIVE)
[2025-10-03] MEDS ORDERED: ISOVUE-370 76% 100 ML VIAL As Ordered ONE (17:46)
[2025-10-03 17:51] LABS: INR 1.04
[2025-10-03 19:42] VITALS: BP 183/89; TEMP 97; O2SAT 98
== END 2025-10-03 19:52 | disposition home or self-care (01) ==
LOC: M ED 13:22
DX: N21.0 Calculus in bladder (principal); S32.040D Wedge compression fracture of fourth lumbar vertebra, subsequent encounter for fracture with routine healing; X58.XXXD Exposure to other specified factors, subsequent encounter; I70.0 Atherosclerosis of aorta; K76.89 Other specified diseases of liver; D73.4 Cyst of spleen; J84.9 Interstitial pulmonary disease, unspecified; I11.0 Hypertensive heart disease with heart failure; I50.9 Heart failure, unspecified; I48.91 Unspecified atrial fibrillation; F41.9 Anxiety disorder, unspecified; F32.A Depression, unspecified; Z88.5 Allergy status to narcotic agent; Z79.899 Other long term (current) drug therapy
CPT/HCPCS: 74177; 80047; 81001; 85025; 85610; 85730; 87086; 96360; 96361; 99284; Q9967